=== PATIENT | female | born 1935 | race Caucasian/White ===

== ENCOUNTER 2019-03-23 09:47 | Inpatient (IN) | payer MEDICARE, BC ==
--- NOTE | 2019-03-23 10:11 | ER Document Report ---
ED Medical Screen (RME) - General Stated Complaint: GENERAL WEAKNESS Time Seen by Provider: 03/23/19 10:05 Mode of Arrival: Medic Information source: Relative Notes: 83 yo female presents to ed for weakness since she was in the assisted living facility. Patient and family states she had a major heart every in november with multiple mini stroke after this. she went to rehab and was able to walk when discharged home to son. He had an emergency and had to place her in an assisted living facility. According to family she was left laying on her back for 3 weeks and she developed a large pressure ulcer. Daughter brought her to [place] a week ago. She is not able to get up and refuses to be turned or repositioned to improve the ulcer. I have greeted and performed a rapid initial assessment of this patient. A comprehensive ED assessment and evaluation of the patient, analysis of test results and completion of medical decision making process will be conducted by an additional ED providers. - Related Data Allergies/Adverse Reactions: No Known Allergies Allergy (Unverified 03/23/19 10:47) Past Medical History - Past Medical History Cardiac Medical History: Reports: Hx Congestive Heart Failure, Hx Heart Attack, Hx Hypertension EENT Medical History: Reports: None Neurological Medical History: Reports: Hx Cerebrovascular Accident, Hx Seizures Endocrine Medical History: Reports: Hx Diabetes Mellitus Type 2 Renal/ Medical History: Reports: None Malignancy Medical History: Reports: Hx Skin Cancer GI Medical History: Reports: None Musculoskeltal Medical History: Reports Hx Arthritis Skin Medical History: Reports None Traumatic Medical History: Reports: Hx Fractures - foot Past Surgical History: Reports: Hx Cardiac Catheterization, Hx Coronary Stent Physical Exam - Vital signs Vitals: Resp Pulse Ox 10 L 98 03/23/19 10:02 03/23/19 10:02 Course - Vital Signs Vital signs: Temp Pulse Resp BP Pulse Ox 98.9 F 9 L 82/47 L 98 03/23/19 10:06 03/23/19 11:03 03/23/19 11:03 03/23/19 11:03 - Laboratory Result Diagrams: 03/23/19 10:35 03/23/19 10:35 Laboratory results interpreted by me: 03/23/19 03/23/19 03/23/19 10:03 10:35 10:35 WBC 20.9 H Hgb 8.9 L Hct 27.3 L MCV 72 L MCH 23.6 L RDW 16.4 H Plt Count 518 H Seg Neuts % (Manual) 91 H Lymphocytes % (Manual) 7 L Monocytes % (Manual) 2 L Abs Neuts (Manual) 19.0 H PT 15.8 H Sodium Chloride POC Glucose 64 L Creatine Kinase Albumin 03/23/19 10:35 WBC Hgb Hct MCV MCH RDW Plt Count Seg Neuts % (Manual) Lymphocytes % (Manual) Monocytes % (Manual) Abs Neuts (Manual) PT Sodium 130.8 L Chloride 93 L POC Glucose Creatine Kinase 160 H Albumin 3.3 L
[2019-03-23] MEDS ORDERED: MORPHINE SULFATE 10 MG/ML INJ IV ONE ×2 (10:47→13:10)
[2019-03-23 10:50] LABS: HEMATOCRIT 27.3 % (36.0-47.0); HEMOGLOBIN 8.9 g/dL (12.0-15.5); INTERNATIONAL RATION (INR) 1.25; MEAN CORPUSCULAR HEMOGLOBIN 23.6 pg (27.0-33.4); MEAN CORPUSCULAR HGB CONC 32.8 g/dL (32.0-36.0); MEAN CORPUSCULAR VOLUME 72 fl (80-97); PLATELET COUNT 518 10^3/uL (150-450); PROTHROMBIN TIME 15.8 SEC (11.4-15.4); RED BLOOD COUNT 3.78 10^6/uL (3.72-5.28); RED CELL DISTRIBUTION WIDTH 16.4 % (11.5-14.0); WHITE BLOOD COUNT 20.9 10^3/uL (4.0-10.5)
[2019-03-23 10:51] LABS: PARTIAL THROMBOPLASTIN TIME 32.8 SEC (23.5-35.8)
[2019-03-23 11:11] LABS: ALBUMIN 3.3 g/dL (3.5-5.0); ALKALINE PHOSPHATASE 84 U/L (38-126); ANION GAP 13 (5-19); ASPARTATE AMINO TRANSFERASE 27 U/L (14-36); BILIRUBIN,DIRECT 0.4 mg/dL (0.0-0.4); BILIRUBIN,TOTAL 0.7 mg/dL (0.2-1.3); BLOOD UREA NITROGEN 16 mg/dL (7-20); CALCIUM 9.2 mg/dL (8.4-10.2); CARBON DIOXIDE 25 mmol/L (22-30); CHLORIDE 93 mmol/L (98-107); CREATINE KINASE 160 U/L (30-135); GLUCOSE 82 mg/dL (75-110); POTASSIUM 4.4 mmol/L (3.6-5.0); TOTAL PROTEIN 6.6 g/dL (6.3-8.2)
[2019-03-23 11:18] LABS: ABSOLUTE LYMPHOCYTES# (MANUAL) 1.5 10^3/uL (0.5-4.7); ABSOLUTE MONOCYTES # (MANUAL) 0.4 10^3/uL (0.1-1.4); BASOPHILS % (MANUAL) 0 % (0-2); EOSINOPHILS % (MANUAL) 0 % (0-6); HYPOCHROMASIA 1+; LYMPHOCYTES % (MANUAL) 7 % (13-45); MONOCYTES % (MANUAL) 2 % (3-13); SEGMENTED NEUTROPHILS % (MAN) 91 % (42-78); TOTAL CELLS COUNTED 100
[2019-03-23 11:19] LABS: ANISOCYTOSIS 1+; BURR CELLS SLIGHT; OVALOCYTES 1+; PLATELET COMMENT ADEQUATE; POIKILOCYTOSIS 1+
[2019-03-23 11:23] LABS: CREATINE KINASE MB 0.77 ng/mL (<4.55); TROPONIN I 0.016 ng/mL
--- NOTE | 2019-03-23 11:48 | RADIOLOGY REPORT (SQ) ---
EXAM DESCRIPTION: CHEST 2 VIEWS COMPLETED DATE/TIME: 03/23/2019 11:41 am REASON FOR STUDY: short of breath COMPARISON: None. NUMBER OF VIEWS: Two view. TECHNIQUE: Frontal and lateral radiographic views of the chest acquired. LIMITATIONS: None. FINDINGS: LUNGS AND PLEURA: No opacities, masses or pneumothorax. No pleural effusion. MEDIASTINUM AND HILAR STRUCTURES: No masses. No contour abnormalities. HEART AND VASCULAR STRUCTURES: Heart enlarged without failure. Aorta normal for age. BONES: No acute findings. HARDWARE: None in the chest. OTHER: No other significant finding. IMPRESSION: CARDIAC ENLARGEMENT WITHOUT FAILURE. TECHNICAL DOCUMENTATION: JOB ID: [id number] [employer]- All Rights Reserved Reading location - IP/workstation name: [email or web address]
--- NOTE | 2019-03-23 11:49 | RADIOLOGY REPORT (SQ) ---
EXAM DESCRIPTION: HIP RIGHT AP/LATERAL COMPLETED DATE/TIME: 03/23/2019 11:41 am REASON FOR STUDY: pain COMPARISON: None. NUMBER OF VIEWS: Two views. TECHNIQUE: AP pelvis and additional frog-leg view of the right hip. LIMITATIONS: None. FINDINGS: No fracture or dislocation. 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 SI joints are normal. See separate report for findings in the lumbar spine. IMPRESSION: No fracture. TECHNICAL DOCUMENTATION: JOB ID: [id number] [employer]- All Rights Reserved Reading location - IP/workstation name: [email or web address]
--- NOTE | 2019-03-23 11:50 | RADIOLOGY REPORT (SQ) ---
EXAM DESCRIPTION: FEMUR RIGHT COMPLETED DATE/TIME: 03/23/2019 11:41 am REASON FOR STUDY: pain hip and thigh COMPARISON: None. NUMBER OF VIEWS: Two views. TECHNIQUE: Two radiographic images acquired of the right femur to include hip and knee in at least o ne projection. LIMITATIONS: None. FINDINGS: MINERALIZATION: Normal. BONES: No acute fracture. No worrisome bone lesions. SOFT TISSUES: No obvious swelling or foreign body. OTHER: No other significant finding. IMPRESSION: NO RADIOGRAPHIC EVIDENCE OF ACUTE INJURY. TECHNICAL DOCUMENTATION: JOB ID: [id number] [employer]- All Rights Reserved Reading location - IP/workstation name: [email or web address]
--- NOTE | 2019-03-23 11:51 | RADIOLOGY REPORT (SQ) ---
EXAM DESCRIPTION: L SPINE WHOLE COMPLETED DATE/TIME: 03/23/2019 11:41 am REASON FOR STUDY: pain arthritis COMPARISON: None. NUMBER OF VIEWS: Four views including obliques. TECHNIQUE: AP, lateral, oblique, and sacral radiographic images acquired of the lumbar spine. LIMITATIONS: Overlying bowel gas. FINDINGS: MINERALIZATION: Osteopenia. SEGMENTATION: Normal. No transitional anatomy. ALIGNMENT: Grade 1 spondylolisthesis L4-5. VERTEBRAE: Maintained height. No fracture or worrisome bone lesion. DISCS: Multilevel disc space narrowing with osteophytes. POSTERIOR ELEMENTS: Pedicles and facets are intact. No pars defect or posterior arch defects. Facet arthropathy is present. HARDWARE: None in the spine. PARASPINAL SOFT TISSUES: Normal. PELVIS: Intact as visualized. No fractures or worrisome bone lesions. SI joints intact. OTHER: No other significant finding. IMPRESSION: SPONDYLOSIS WITHOUT BONE LESION OR FRACTURE. TECHNICAL DOCUMENTATION: JOB ID: [id number] [email or web address]- All Rights Reserved Reading location - IP/workstation name: [email or web address]
--- NOTE | 2019-03-23 13:05 | ER Document Report ---
ED General - General Chief Complaint: General Weakness Stated Complaint: GENERAL WEAKNESS Time Seen by Provider: 03/23/19 10:05 Mode of Arrival: Medic - HPI Notes: Patient presents due to generalized body aches with acute on chronic pain in her hips and lower back. Patient is bedbound. She lives with her daughter. She was recently in assisted living facility and has developed pressure ulcers in her sacral region. She also has urinary incontinence. She denies any recent vomiting diarrhea nausea chest pain or abdominal pain. No recent cough or congestion - Related Data Allergies/Adverse Reactions: No Known Allergies Allergy (Unverified 03/23/19 10:47) Past Medical History - General Information source: Relative - Social History Smoking Status: Smoker,Current Status Unk Family History: Reviewed & Not Pertinent Patient has suicidal ideation: No Patient has homicidal ideation: No - Past Medical History Cardiac Medical History: Reports: Hx Congestive Heart Failure, Hx Heart Attack, Hx Hypertension EENT Medical History: Reports: None Neurological Medical History: Reports: Hx Cerebrovascular Accident, Hx Seizures Endocrine Medical History: Reports: Hx Diabetes Mellitus Type 2 Renal/ Medical History: Reports: None. Denies: Hx Peritoneal Dialysis Malignancy Medical History: Reports: Hx Skin Cancer GI Medical History: Reports: None Musculoskeletal Medical History: Reports Hx Arthritis Skin Medical History: Reports None Traumatic Medical History: Reports: Hx Fractures - foot Past Surgical History: Reports: Hx Cardiac Catheterization, Hx Coronary Stent Review of Systems - Review of Systems Constitutional: See HPI EENT: No symptoms reported Cardiovascular: No symptoms reported Respiratory: No symptoms reported Gastrointestinal: No symptoms reported Genitourinary: No symptoms reported Female Genitourinary: No symptoms reported Musculoskeletal: See HPI Skin: No symptoms reported Hematologic/Lymphatic: No symptoms reported Neurological/Psychological: No symptoms reported Physical Exam - Vital signs Vitals: Resp Pulse Ox 10 L 98 03/23/19 10:02 03/23/19 10:02 - General General appearance: Appears well, Alert - HEENT Head: Normocephalic Eyes: Normal - Respiratory Respiratory status: No respiratory distress Chest status: Nontender Breath sounds: Normal - Cardiovascular Rhythm: Regular Heart sounds: Normal auscultation Murmur: No - Abdominal Inspection: Other - Obese abdomen nontender to palpation, positive bowel sounds - Back Back: Other - Stage II sacral ulcerations - Extremities General upper extremity: Normal ROM General lower extremity: Other - +1 bilateral pitting edema, patient has stiff legs pain with any movement at her baseline per daughter states that she has "locked legs" Course - Re-evaluation Re-evalutation: 03/23/19 15:09 admit to MICU for turn for skin infection with leukocytosis generalized weakness. - Vital Signs Vital signs: Temp Pulse Resp BP Pulse Ox 98.4 F 59 L 16 96/32 L 83 L 03/24/19 07:41 03/24/19 08:51 03/24/19 07:41 03/24/19 08:51 03/24/19 07:41 - Laboratory Result Diagrams: 03/23/19 10:35 03/23/19 10:35 Laboratory results interpreted by me: 03/23/19 03/23/19 03/23/19 10:03 10:35 10:35 WBC 20.9 H Hgb 8.9 L Hct 27.3 L MCV 72 L MCH 23.6 L RDW 16.4 H Plt Count 518 H Seg Neuts % (Manual) 91 H Lymphocytes % (Manual) 7 L Monocytes % (Manual) 2 L Abs Neuts (Manual) 19.0 H PT 15.8 H Sodium Chloride POC Glucose 64 L Creatine Kinase Albumin Urine Protein Urine Blood 03/23/19 03/23/19 10:35 14:10 WBC Hgb Hct MCV MCH RDW Plt Count Seg Neuts % (Manual) Lymphocytes % (Manual) Monocytes % (Manual) Abs Neuts (Manual) PT Sodium 130.8 L Chloride 93 L POC Glucose Creatine Kinase 160 H Albumin 3.3 L Urine Protein 30 H Urine Blood SMALL H Discharge - Discharge Clinical Impression: Leukocytosis Qualifiers: Leukocytosis type: other Qualified Code(s): D72.828 - Other elevated white blood cell count Decubitus ulcer Qualifiers: Pressure injury location: sacral region Pressure injury stage: stage 2 Qualif ied Code(s): L89.152 - Pressure ulcer of sacral region, stage 2 Condition: Good Disposition: ADMITTED INPATIENT Admitting Provider: Reese (Hospitalist) Unit Admitted: [facility]
[2019-03-23 14:51] LABS: AMORPHOUS SEDIMENT,URINE TRACE /HPF; APPEARANCE,URINE CLEAR; BILIRUBIN,URINE NEGATIVE (NEGATIVE); COLOR,URINE YELLOW; GLUCOSE, URINE NEGATIVE (NEGATIVE); KETONES,URINE NEGATIVE (NEGATIVE); LEUKOCYTE ESTERASE,URINE NEGATIVE (NEGATIVE); NITRITE,URINE NEGATIVE (NEGATIVE); PROTEIN,URINE 30 mg/dL (NEGATIVE); UROBILINOGEN,URINE NEGATIVE mg/dL (<2.0)
[2019-03-23] MEDS ORDERED: PIPERACILLIN/TAZOBACTAM 3.375 GM VIAL IV ONE (15:08)
[2019-03-23] MEDS ORDERED: VANCOMYCIN HCL INJ 1000 MG VIAL IV ONE (15:09)
--- NOTE | 2019-03-23 15:42 | PDOC H&P ---
History of Present Illness Admission Date/PCP: 03/23/19 15:18 History of Present Illness: JESSE HURLEY is a 83 year old female patient brought by her daughter with chief complaint of back and lower extremity pain. Since patient is weak and deconditioned the brief history is obtained from her daughter who is in the room during my encounter. Per her daughter patient has been doing well and she does not have significant medical history and she does not take any medication except chronic osteoarthritis up until December 06, 2018 when she had cardiac arrest for which patient was taken to [facility] in [facility]. Patient was successfully resuscitated and she has found to have coronary artery disease which requires 3 stent placement. Reportedly her hospital course is complicated by aspiration pneumonia. After discharge patient went to rehab then to senior care facility. Reportedly is a senior care facility patient developed decubitus ulcer. On examination she has infected sacral and gluteal decubitus ulcer. Her blood work shows market leukocytosis of 20,000. Rate her imaging studies are unremarkable. Past Medical History Cardiac Medical History: Reports: Congestive Heart Failure, Myocardial Infarction, Hypertension EENT Medical History: Reports: None Neurological Medical History: Reports: Seizures Endocrine Medical History: Reports: Diabetes Mellitus Type 2 Renal/ Medical History: Reports: None Malignancy Medical History: Reports: Skin Cancer GI Medical History: Reports: None Musculoskeltal Medical History: Reports: Arthritis Skin Medical History: Reports: None Past Surgical History Past Surgical History: Reports: Cardiac Catheterization, Coronary Stent Social History Smoking Status: Smoker,Current Status Unk - Advance Directive Resuscitation Status: Full Code Family History Parental Family History Reviewed: Yes Children Family History Reviewed: Yes Sibling(s) Family History Reviewed.: Yes Medication/Allergy Allergies/Adverse Reactions: No Known Allergies Allergy (Unverified 03/23/19 10:47) Review of Systems ROS unobtainable: Due to mental status Physical Exam Vital Signs: Temp Pulse Resp BP Pulse Ox 98.9 F 17 103/34 L 93 03/23/19 10:06 03/23/19 15:01 03/23/19 15:01 03/23/19 15:01 Intake & Output 03/22/19 03/23/19 03/24/19 06:59 06:59 06:59 Weight 77.2 kg General appearance: PRESENT: no acute distress Head exam: PRESENT: atraumatic Eye exam: PRESENT: conjunctiva pink Mouth exam: PRESENT: moist, tongue midline Neck exam: ABSENT: carotid bruit, JVD, lymphadenopathy, thyromegaly Respiratory exam: PRESENT: clear to auscultation teri. ABSENT: rales, rhonchi, wheezes GI/Abdominal exam: PRESENT: normal bowel sounds, soft. ABSENT: distended, guarding, mass, organolmegaly, rebound, tenderness Neurological exam: PRESENT: alert, oriented to person, oriented to place, oriented to time, oriented to situation Results Laboratory Results: 03/23/19 10:35 03/23/19 10:35 03/23/19 03/23/19 03/23/19 10:35 10:35 13:43 WBC 20.9 H RBC 3.78 Hgb 8.9 L Hct 27.3 L MCV 72 L MCH 23.6 L MCHC 32.8 RDW 16.4 H Plt Count 518 H Seg Neutrophils % Not Reportable Sodium 130.8 L Potassium 4.4 Chloride 93 L Carbon Dioxide 25 Anion Gap 13 BUN 16 Creatinine 0.62 Est GFR ( Amer) > 60 Glucose 82 Lactic Acid 1.2 Calcium 9.2 Total Bilirubin 0.7 AST 27 Alkaline Phosphatase 84 Total Protein 6.6 Albumin 3.3 L Lipase 45.7 Urine Color Urine Appearance Urine pH Ur Specific [place] Urine Protein Urine Glucose (UA) Urine Ketones Urine Blood Urine Nitrite Ur Leukocyte Esterase Urine WBC (Auto) Urine RBC (Auto) 03/23/19 14:10 WBC RBC Hgb Hct MCV MCH MCHC RDW Plt Count Seg Neutrophils % Sodium Potassium Chloride Carbon Dioxide Anion Gap BUN Creatinine Est GFR ( Amer) Glucose Lactic Acid Calcium Total Bilirubin AST Alkaline Phosphatase Total Protein Albumin Lipase Urine Color YELLOW Urine Appearance CLEAR Urine pH 6.0 Ur Specific [place] 1.010 Urine Protein 30 H Urine Glucose (UA) NEGATIVE Urine Ketones NEGATIVE Urine Blood SMALL H Urine Nitrite NEGATIVE Ur Leukocyte Esterase NEGATIVE Urine WBC (Auto) 1 Urine RBC (Auto) 1 03/23/19 03/23/19 10:35 10:35 Creatine Kinase 160 H CK-MB (CK-2) 0.77 Troponin I 0.016 Impressions: Femur X-Ray 03/23/19 10:12 IMPRESSION: NO RADIOGRAPHIC EVIDENCE OF ACUTE INJURY. Hip/Pelvis X-Ray 03/23/19 10:12 IMPRESSION: No fracture. Chest X-Ray 03/23/19 10:13 IMPRESSION: CARDIAC ENLARGEMENT WITHOUT FAILURE. Lumbar Spine X-Ray 03/23/19 10:13 IMPRESSION: SPONDYLOSIS WITHOUT BONE LESION OR FRACTURE. Assessment and Plan - Diagnosis (1) Infected decubitus ulcer Qualifiers: Pressure injury stage: stage 2 Qualified Code(s): L89.92 - Pressure ulcer of unspecified site, stage 2; L08.9 - Local infection of the skin and subcutaneous tissue, unspecified Is this a current diagnosis for this admission?: Yes Plan: Patient will be started on Unasyn. Wound care consulted. (2) Coronary artery disease Qualifiers: Coronary Disease-Associated Artery/Lesion type: [place] artery Is this a current diagnosis for this admission?: Yes Plan: Status post 3 stent placement in November 2018. Currently patient does not have any anginal symptoms. (3) Seizure disorder Is this a current diagnosis for this admission?: Yes Plan: In remission
[2019-03-23] MEDS ORDERED: GLUCAGON,HUMAN RECOMB 1 MG INJ IM PRN (15:45)
[2019-03-23] MEDS ORDERED: DEXTROSE 50%-WATER 25 GM/50 ML DISP.SYRIN IV PRN (15:45)
[2019-03-23] MEDS ORDERED: DEXTROSE 40% GEL 15 GM TUBE PO PRN ×2 (15:45)
[2019-03-23] MEDS ORDERED: FENTANYL 25 MCG/HR PATCH.TD72 TD ONE (15:46)
[2019-03-23] MEDS: INSULIN LISPRO 100 UNIT/ML 3 ML VIAL SUBCUT SCH ×2 (16:47→21:29)
[2019-03-23] MEDS ORDERED: VANCOMYCIN HCL INJ 1000 MG VIAL ONE (17:31)
[2019-03-23] MEDS ORDERED: AMPICILLIN SODIUM/SULBACTAM NA 3 GM in NORMAL SALINE 100 ML IV SCH (18:00)
[2019-03-23] MEDS ORDERED: AMPICILLIN SODIUM/SULBACTAM NA 2 GM in NORMAL SALINE 100 ML IV SCH (18:00)
[2019-03-23] MEDS: FAMOTIDINE 20 MG TABLET PO SCH (21:19)
[2019-03-23] MEDS: DOCUSATE SODIUM 100 MG CAPSULE PO SCH (21:19)
[2019-03-23] MEDS: ENOXAPARIN SODIUM INJ 40 MG/0.4 ML DISP.SYRIN SUBCUT SCH (21:19)
[2019-03-24] MEDS: ACETAMINOPHEN 325 MG TABLET PO PRN (02:01)
[2019-03-24] MEDS: AMPICILLIN SODIUM/SULBACTAM NA 3 GM in NORMAL SALINE 100 ML IV SCH ×4 (02:09→21:04)
[2019-03-24] MEDS: OXYCODONE HCL IR 5 MG TABLET PO PRN ×2 (04:48→16:27)
[2019-03-24] MEDS: INSULIN LISPRO 100 UNIT/ML 3 ML VIAL SUBCUT SCH ×4 (07:51→21:05)
[2019-03-24] MEDS: DOCUSATE SODIUM 100 MG CAPSULE PO SCH ×2 (10:11→18:09)
[2019-03-24] MEDS: FAMOTIDINE 20 MG TABLET PO SCH ×2 (10:11→21:04)
[2019-03-24] MEDS: ENOXAPARIN SODIUM INJ 40 MG/0.4 ML DISP.SYRIN SUBCUT SCH (10:12)
[2019-03-24] MEDS ORDERED: FENTANYL 25 MCG/HR PATCH.TD72 TD SCH (11:00)
--- NOTE | 2019-03-24 16:22 | PDOC PROGRESS REPORT ---
Subjective Progress Note for:: 03/24/19 Subjective:: JESSE HURLEY is a 83 year old female patient brought by her daughter with chief complaint of back and lower extremity pain. Since patient is weak and deconditioned the brief history is obtained from her daughter who is in the room during my encounter. Per her daughter patient has been doing well and she does not have significant medical history and she does not take any medication except chronic osteoarthritis up until December 06, 2018 when she had cardiac arrest for which patient was taken to [facility] in [facility]. Patient was successfully resuscitated and she has found to have coronary artery disease which requires 3 stent placement. Reportedly her hospital course is complicated by aspiration pneumonia. After discharge patient went to [facility]hab [facility] Reportedly is a jail facility patient developed decubitus ulcer. On examination she has infected sacral and gluteal decubitus ulcer. Her blood work shows market leukocytosis of 20,000. Rate her imaging studies are unremarkable. 03/24/2019: Patient seen lying in bed. Patient complains of back pain and cramping his legs. She does not have fever, nausea or vomiting. She eats well. She has been on Unasyn for infected sacral decubitus ulcer. Reason For Visit: INFECTED SACRAL DECUBITUS ULCER Physical Exam Vital Signs: Temp Pulse Resp BP Pulse Ox 98.4 F 63 18 97/32 L 100 03/24/19 11:26 03/24/19 11:26 03/24/19 11:26 03/24/19 11:26 03/24/19 11:26 Intake & Output 03/23/19 03/24/19 03/25/19 06:59 06:59 06:59 Intake Total 885 340 Output Total 375 Balance 510 340 Weight 75.9 kg General appearance: PRESENT: no acute distress Head exam: PRESENT: atraumatic Eye exam: PRESENT: conjunctiva pink Neck exam: ABSENT: carotid bruit, JVD, lymphadenopathy, thyromegaly Respiratory exam: PRESENT: clear to auscultation teri. ABSENT: rales, rhonchi, wheezes Cardiovascular exam: PRESENT: RRR. ABSENT: diastolic murmur, rubs, systolic murmur GI/Abdominal exam: PRESENT: normal bowel sounds, soft. ABSENT: distended, guarding, mass, organolmegaly, rebound, tenderness Neurological exam: PRESENT: alert, awake, oriented to person, oriented to place, oriented to time, oriented to situation Results Laboratory Results: 03/23/19 10:35 03/23/19 10:35 03/23/19 03/23/19 10:35 10:35 Creatine Kinase 160 H CK-MB (CK-2) 0.77 Troponin I 0.016 Impressions: Femur X-Ray 03/23/19 10:12 IMPRESSION: NO RADIOGRAPHIC EVIDENCE OF ACUTE INJURY. Hip/Pelvis X-Ray 03/23/19 10:12 IMPRESSION: No fracture. Chest X-Ray 03/23/19 10:13 IMPRESSION: CARDIAC ENLARGEMENT WITHOUT FAILURE. Lumbar Spine X-Ray 03/23/19 10:13 IMPRESSION: SPONDYLOSIS WITHOUT BONE LESION OR FRACTURE. Assessment and Plan - Diagnosis (1) Infected decubitus ulcer Qualifiers: Pressure injury stage: stage 2 Qualified Code(s): L89.92 - Pressure ulcer of unspecified site, stage 2; L08.9 - Local infection of the skin and subcutaneous tissue, unspecified Is this a current diagnosis for this admission?: Yes Plan: Patient will be started on Unasyn. Wound care consulted. (2) Coronary artery disease Qualifiers: Coronary Disease-Associated Artery/Lesion type: [place] artery Is this a current diagnosis for this admission?: Yes Plan: Status post 3 stent placement in November 2018. Currently patient does not have any anginal symptoms. (3) Seizure disorder Is this a current diagnosis for this admission?: Yes Plan: In remission
[2019-03-24] MEDS: MEGESTROL ACETATE SUSP 400 MG/10 ML UDCUP PO SCH (18:09)
[2019-03-24] MEDS ORDERED: NORMAL SALINE 1000 ML 1,000 ML IV ONE (21:00)
[2019-03-25] MEDS: AMPICILLIN SODIUM/SULBACTAM NA 3 GM in NORMAL SALINE 100 ML IV SCH ×4 (02:50→21:09)
[2019-03-25 04:55] LABS: ABSOLUTE EOSINOPHILS # (AUTO) 0.1 10^3/uL (0.0-0.6); ABSOLUTE MONOCYTES (AUTO) 1.3 10^3/uL (0.1-1.4); ABSOLUTE NEUT (AUTO) 10.4 10^3/uL (1.7-8.2); BASOPHILS % (AUTO) 0.2 % (0-2); EOSINOPHILS % (AUTO) 0.6 % (0-6); HEMATOCRIT 21.8 % (36.0-47.0); LYMPHOCYTES % (AUTO) 14.5 % (13-45); MEAN CORPUSCULAR HEMOGLOBIN 23.3 pg (27.0-33.4); MEAN CORPUSCULAR HGB CONC 32.7 g/dL (32.0-36.0); MEAN CORPUSCULAR VOLUME 72 fl (80-97); MONOCYTES % (AUTO) 9.3 % (3-13); PLATELET COUNT 425 10^3/uL (150-450); RED BLOOD COUNT 3.05 10^6/uL (3.72-5.28); SEGMENTED NEUTROPHILS % (AUTO) 75.4 % (42-78); TOTAL CELLS COUNTED % (AUTO) 100 %; WHITE BLOOD COUNT 13.7 10^3/uL (4.0-10.5)
[2019-03-25 04:57] LABS: HEMOGLOBIN 7.1 g/dL (12.0-15.5)
[2019-03-25 05:12] LABS: ANION GAP 8 (5-19); BLOOD UREA NITROGEN 13 mg/dL (7-20); CALCIUM 8.2 mg/dL (8.4-10.2); CARBON DIOXIDE 24 mmol/L (22-30); CHLORIDE 100 mmol/L (98-107); GLUCOSE 122 mg/dL (75-110); POTASSIUM 3.8 mmol/L (3.6-5.0)
[2019-03-25] MEDS: SILVER SULFADIAZINE 1% CREAM 50 GM TP SCH ×2 (06:22→09:38)
--- NOTE | 2019-03-25 06:57 | EKG REPORT ---
SEVERITY:- ABNORMAL ECG - SINUS RHYTHM LEFT BUNDLE BRANCH BLOCK : Confirmed by: Talib Cochran MD 25-Mar-2019 06:57:29
[2019-03-25 07:46] LABS: CREATINE KINASE MB 0.65 ng/mL (<4.55); TROPONIN I 0.029 ng/mL
[2019-03-25] MEDS: INSULIN LISPRO 100 UNIT/ML 3 ML VIAL SUBCUT SCH ×4 (08:29→23:46)
[2019-03-25] MEDS: OXYCODONE HCL IR 5 MG TABLET PO PRN (08:32)
[2019-03-25] MEDS: NORMAL SALINE 1000 ML 1,000 ML IV PRN (08:32)
[2019-03-25] MEDS: CYANOCOBALAMIN (VITAMIN B-12) 1,000 MCG TABLET PO SCH (09:37)
[2019-03-25] MEDS: AMIODARONE HCL 200 MG TABLET PO SCH (09:37)
[2019-03-25] MEDS: DOCUSATE SODIUM 100 MG CAPSULE PO SCH ×2 (09:38→17:12)
[2019-03-25] MEDS: SITAGLIPTIN PHOSPHATE 50 MG TABLET PO SCH (09:38)
[2019-03-25] MEDS: CLOPIDOGREL BISULFATE 75 MG TABLET PO SCH (09:38)
[2019-03-25] MEDS: ASPIRIN 81 MG TABLET, ENT COATED PO SCH (09:38)
[2019-03-25] MEDS: FAMOTIDINE 20 MG TABLET PO SCH ×2 (09:38→21:09)
[2019-03-25] MEDS: CHOLECALCIFEROL (D3) 1,000 UNIT (25 MCG) TABLET PO SCH (09:38)
[2019-03-25] MEDS: MEGESTROL ACETATE SUSP 400 MG/10 ML UDCUP PO SCH (09:39)
[2019-03-25] MEDS: ENOXAPARIN SODIUM INJ 40 MG/0.4 ML DISP.SYRIN SUBCUT SCH (09:39)
[2019-03-25] MEDS ORDERED: CYANOCOBALAMIN 5000 MCG PO SCH (10:00)
[2019-03-25] MEDS ORDERED: CARVEDILOL 12.5 MG TABLET PO SCH (10:00)
[2019-03-25] MEDS ORDERED: (PENDING PHARMACY ID) (Carvedilol [Coreg 25 Mg Tablet] 1 TAB) PO SCH (10:00)
--- NOTE | 2019-03-25 15:09 | PDOC PROGRESS REPORT ---
Subjective Progress Note for:: 03/25/19 Subjective:: JESSE HURLEY is a 83 year old female patient brought by her daughter with chief complaint of back and lower extremity pain. Since patient is weak and deconditioned the brief history is obtained from her daughter who is in the room during my encounter. Per her daughter patient has been doing well and she does not have significant medical history and she does not take any medication except chronic osteoarthritis up until December 06, 2018 when she had cardiac arrest for which patient was taken to [facility] in [facility]. Patient was successfully resuscitated and she has found to have coronary artery disease which requires 3 stent placement. Reportedly her hospital course is complicated by aspiration pneumonia. After discharge patient went to rehab then to [facility]. Reportedly is a prison facility patient developed decubitus ulcer. On examination she has infected sacral and gluteal decubitus ulcer. Her blood work shows market leukocytosis of 20,000. Rate her imaging studies are unremarkable. 03/24/2019: Patient seen lying in bed. Patient complains of back pain and cramping his legs. She does not have fever, nausea or vomiting. She eats well. She has been on Unasyn for infected sacral decubitus ulcer. 03/25/2019: Patient seen screaming from pain while the nurse and patient recycling technician try to change her position. Patient also running hypotension so I discontinued her carvedilol. Otherwise patient is awake alert and oriented. She does not have any fever nausea or vomiting. Physical therapy has been working with her. Reason For Visit: INFECTED SACRAL DECUBITUS ULCER Physical Exam Vital Signs: Temp Pulse Resp BP Pulse Ox 98.2 F 77 15 104/40 L 96 03/25/19 11:30 03/25/19 11:30 03/25/19 11:30 03/25/19 11:30 03/25/19 11:30 Intake & Output 03/24/19 03/25/19 03/26/19 06:59 06:59 06:59 Intake Total 885 970 470 Output Total 375 1450 Balance 510 -480 470 Weight 75.9 kg 75.4 kg General appearance: PRESENT: mild distress, well-developed, well-nourished Head exam: PRESENT: atraumatic, normocephalic Eye exam: PRESENT: conjunctiva pink, EOMI, PERRLA. ABSENT: scleral icterus Ear exam: PRESENT: normal external ear exam Mouth exam: PRESENT: moist, tongue midline Neck exam: ABSENT: carotid bruit, JVD, lymphadenopathy, thyromegaly Respiratory exam: ABSENT: rales, rhonchi, wheezes Cardiovascular exam: PRESENT: RRR. ABSENT: diastolic murmur, rubs, systolic murmur Pulses: PRESENT: normal dorsalis pedis pul Vascular exam: PRESENT: normal capillary refill GI/Abdominal exam: PRESENT: normal bowel sounds, soft. ABSENT: distended, guarding, mass, organolmegaly, rebound, tenderness Rectal exam: PRESENT: deferred Extremities exam: PRESENT: full ROM. ABSENT: calf tenderness, clubbing, pedal edema Neurological exam: PRESENT: alert, awake, oriented to person, oriented to place, oriented to time, oriented to situation. ABSENT: motor sensory deficit Psychiatric exam: PRESENT: appropriate affect, normal mood. ABSENT: homicidal ideation, suicidal ideation Skin exam: PRESENT: dry, intact, warm. ABSENT: cyanosis, rash Results Laboratory Results: 03/25/19 04:07 03/25/19 04:07 03/25/19 03/25/19 03/25/19 04:07 04:07 06:43 WBC 13.7 H RBC 3.05 L Hgb 7.1 L Hct 21.8 L MCV 72 L MCH 23.3 L MCHC 32.7 RDW 16.0 H Plt Count 425 Seg Neutrophils % 75.4 Sodium 131.8 L Potassium 3.8 Chloride 100 Carbon Dioxide 24 Anion Gap 8 BUN 13 Creatinine 0.72 Est GFR ( Amer) > 60 Glucose 122 H Calcium 8.2 L Blood Type O POSITIVE Antibody Screen NEGATIVE 03/23/19 14:10 Buttocks - Decubitis Ulcer Gram Stain - Final 03/23/19 03/23/19 03/25/19 10:35 10:35 06:43 Creatine Kinase 160 H 177 H CK-MB (CK-2) 0.77 Troponin I 0.016 03/25/19 06:43 Creatine Kinase CK-MB (CK-2) 0.65 Troponin I 0.029 Impressions: Femur X-Ray 03/23/19 10:12 IMPRESSION: NO RADIOGRAPHIC EVIDENCE OF ACUTE INJURY. Hip/Pelvis X-Ray 03/23/19 10:12 IMPRESSION: No fracture. Chest X-Ray 03/23/19 10:13 IMPRESSION: CARDIAC ENLARGEMENT WITHOUT FAILURE. Lumbar Spine X-Ray 03/23/19 10:13 IMPRESSION: SPONDYLOSIS WITHOUT BONE LESION OR FRACTURE. Assessment and Plan - Diagnosis (1) Infected decubitus ulcer Qualifiers: Pressure injury stage: stage 2 Qualified Code(s): L89.92 - Pressure ulcer of unspecified site, stage 2; L08.9 - Local infection of the skin and subcutaneous tissue, unspecified Is this a current diagnosis for this admission?: Yes Plan: Continue with wound care (2) Coronary artery disease Qualifiers: Coronary Disease-Associated Artery/Lesion type: [place] artery Is this a current diagnosis for this admission?: Yes Plan: Status post 3 stent placement in November 2018. Currently patient does not have any anginal symptoms. (3) Seizure disorder Is this a current diagnosis for this admission?: Yes Plan: In remission (4) Type 2 diabetes mellitus Is this a current diagnosis for this admission?: Yes Plan: Her metformin and sliding scale has been resumed.
[2019-03-25] MEDS ORDERED: FENTANYL 50 MCG/HR PATCH.TD72 TD SCH (16:00)
[2019-03-25] MEDS: METFORMIN HCL 500 MG TABLET PO SCH (16:03)
[2019-03-25 16:40] LABS: ABSOLUTE EOSINOPHILS # (AUTO) 0.3 10^3/uL (0.0-0.6); ABSOLUTE LYMPHOCYTES (AUTO) 2.6 10^3/uL (0.5-4.7); ABSOLUTE NEUT (AUTO) 11.6 10^3/uL (1.7-8.2); BASOPHILS % (AUTO) 0.3 % (0-2); EOSINOPHILS % (AUTO) 1.7 % (0-6); HEMATOCRIT 25.2 % (36.0-47.0); HEMOGLOBIN 8.5 g/dL (12.0-15.5); LYMPHOCYTES % (AUTO) 16.5 % (13-45); MEAN CORPUSCULAR HGB CONC 33.6 g/dL (32.0-36.0); MONOCYTES % (AUTO) 6.8 % (3-13); PLATELET COUNT 420 10^3/uL (150-450); RED BLOOD COUNT 3.02 10^6/uL (3.72-5.28); RED CELL DISTRIBUTION WIDTH 14.2 % (11.5-14.0); SEGMENTED NEUTROPHILS % (AUTO) 74.7 % (42-78); TOTAL CELLS COUNTED % (AUTO) 100 %; WHITE BLOOD COUNT 15.5 10^3/uL (4.0-10.5)
[2019-03-25 16:42] LABS: MEAN CORPUSCULAR VOLUME 83 fl (80-97)
[2019-03-25] MEDS: FENTANYL 50 MCG/HR PATCH.TD72 TD SCH (17:12)
[2019-03-25] MEDS: ATORVASTATIN CALCIUM 80 MG TABLET PO SCH (21:08)
[2019-03-26] MEDS: NORMAL SALINE 1000 ML 1,000 ML IV PRN ×2 (02:09→14:37)
[2019-03-26] MEDS: AMPICILLIN SODIUM/SULBACTAM NA 3 GM in NORMAL SALINE 100 ML IV SCH ×2 (03:37→08:46)
[2019-03-26] MEDS: SILVER SULFADIAZINE 1% CREAM 50 GM TP SCH ×3 (03:37→21:10)
[2019-03-26] MEDS: INSULIN LISPRO 100 UNIT/ML 3 ML VIAL SUBCUT SCH ×4 (08:41→21:51)
[2019-03-26] MEDS: METFORMIN HCL 500 MG TABLET PO SCH ×2 (09:02→16:53)
[2019-03-26] MEDS: SITAGLIPTIN PHOSPHATE 50 MG TABLET PO SCH (09:03)
[2019-03-26] MEDS: CHOLECALCIFEROL (D3) 1,000 UNIT (25 MCG) TABLET PO SCH (09:03)
[2019-03-26] MEDS: CLOPIDOGREL BISULFATE 75 MG TABLET PO SCH (09:03)
[2019-03-26] MEDS: ASPIRIN 81 MG TABLET, ENT COATED PO SCH (09:03)
[2019-03-26] MEDS: DOCUSATE SODIUM 100 MG CAPSULE PO SCH ×2 (09:03→17:46)
[2019-03-26] MEDS: CYANOCOBALAMIN (VITAMIN B-12) 1,000 MCG TABLET PO SCH (09:03)
[2019-03-26] MEDS: MEGESTROL ACETATE SUSP 400 MG/10 ML UDCUP PO SCH (09:03)
[2019-03-26] MEDS: AMIODARONE HCL 200 MG TABLET PO SCH (09:03)
[2019-03-26] MEDS: FAMOTIDINE 20 MG TABLET PO SCH ×2 (09:03→21:08)
[2019-03-26] MEDS: ENOXAPARIN SODIUM INJ 40 MG/0.4 ML DISP.SYRIN SUBCUT SCH (09:03)
[2019-03-26] MEDS: OXYCODONE HCL IR 5 MG TABLET PO PRN ×2 (09:09→14:36)
[2019-03-26] MEDS: PIPERACILLIN SODIUM/TAZOBACTAM 4.5 GM in NORMAL SALINE 100 ML IV SCH ×3 (09:49→17:46)
[2019-03-26] MEDS ORDERED: FENTANYL 25 MCG/HR PATCH.TD72 TD SCH (10:00)
--- NOTE | 2019-03-26 13:23 | PDOC PROGRESS REPORT ---
Subjective Progress Note for:: 03/26/19 Subjective:: JESSE HURLEY is a 83 year old female patient brought by her daughter with chief complaint of back and lower extremity pain. Since patient is weak and deconditioned the brief history is obtained from her daughter who is in the room during my encounter. Per her daughter patient has been doing well and she does not have significant medical history and she does not take any medication except chronic osteoarthritis up until December 06, 2018 when she had cardiac arrest for which patient was taken to [facility] in [facility]. Patient was successfully resuscitated and she has found to have coronary artery disease which requires 3 stent placement. Reportedly her hospital course is complicated by aspiration pneumonia. After discharge patient went to rehab then to care home facility. Reportedly is a care home facility patient developed decubitus ulcer. On examination she has infected sacral and gluteal decubitus ulcer. Her blood work shows market leukocytosis of 20,000. Rate her imaging studies are unremarkable. 03/24/2019: Patient seen lying in bed. Patient complains of back pain and cramping his legs. She does not have fever, nausea or vomiting. She eats well. She has been on Unasyn for infected sacral decubitus ulcer. 03/25/2019: Patient seen screaming from pain while the nurse and patient plastic eye technician try to change her position. Patient also running hypotension so I discontinued her carvedilol. Otherwise patient is awake alert and oriented. She does not have any fever nausea or vomiting. Physical therapy has been working with her. 03/26/2019: Patient reports this her back and lower extremity pain relatively improved after she was put on fentanyl patch. Her vital sign and blood works are reviewed. Clinically patient is stable but patient has hypotension and she is bolused with thousand mL of normal saline. Her wound culture grew Enterococcus faecalis, Serratia marcescens, Pseudomonas aeruginosa. And her blood culture is positive for Pseudomonas aeruginosa. Her Unasyn is switched to Zosyn. Her white cell count at admission was 22 date is 15.5. Reason For Visit: INFECTED SACRAL DECUBITUS ULCER Physical Exam Vital Signs: Temp Pulse Resp BP Pulse Ox 98.4 F 61 16 73/35 L 91 L 03/26/19 11:50 03/26/19 11:50 03/26/19 11:50 03/26/19 11:50 03/26/19 11:50 Intake & Output 03/25/19 03/26/19 03/27/19 06:59 06:59 06:59 Intake Total 1970 2770 200 Output Total 1450 1100 Balance 520 1670 200 Weight 75.4 kg 76.8 kg General appearance: PRESENT: no acute distress Head exam: PRESENT: atraumatic Mouth exam: PRESENT: dry mucosa Neck exam: ABSENT: carotid bruit, JVD, lymphadenopathy, thyromegaly Respiratory exam: PRESENT: clear to auscultation teri. ABSENT: rales, rhonchi, wheezes Cardiovascular exam: PRESENT: RRR. ABSENT: diastolic murmur, rubs, systolic murmur GI/Abdominal exam: PRESENT: normal bowel sounds, soft. ABSENT: distended, guarding, mass, organolmegaly, rebound, tenderness Neurological exam: PRESENT: alert, awake, oriented to person, oriented to place, oriented to time, oriented to situation Results Laboratory Results: 03/25/19 16:20 03/25/19 04:07 03/25/19 16:20 WBC 15.5 H RBC 3.02 L Hgb 8.5 L Hct 25.2 L MCV 83 D MCH 28.0 MCHC 33.6 RDW 14.2 H Plt Count 420 Seg Neutrophils % 74.7 03/23/19 14:10 Buttocks - Decubitis Ulcer Gram Stain - Final 03/23/19 14:10 Buttocks - Decubitis Ulcer Wound Culture - Final Enterococcus Faecalis(Group D) Serratia Marcescens Pseudomonas Aeruginosa 03/23/19 14:20 Blood Blood Culture - Final Pseudomonas Aeruginosa 03/23/19 13:25 Blood Blood Culture - Final Pseudomonas Aeruginosa 03/23/19 03/23/19 03/25/19 10:35 10:35 06:43 Creatine Kinase 160 H 177 H CK-MB (CK-2) 0.77 Troponin I 0.016 03/25/19 06:43 Creatine Kinase CK-MB (CK-2) 0.65 Troponin I 0.029 Impressions: Femur X-Ray 03/23/19 10:12 IMPRESSION: NO RADIOGRAPHIC EVIDENCE OF ACUTE INJURY. Hip/Pelvis X-Ray 03/23/19 10:12 IMPRESSION: No fracture. Chest X-Ray 03/23/19 10:13 IMPRESSION: CARDIAC ENLARGEMENT WITHOUT FAILURE. Lumbar Spine X-Ray 03/23/19 10:13 IMPRESSION: SPONDYLOSIS WITHOUT BONE LESION OR FRACTURE. Assessment and Plan - Diagnosis (1) Gram-negative bacteremia Is this a current diagnosis for this admission?: Yes Plan: Her blood culture grew Pseudomonas aeruginosa. Final report is pending. I switch her Unasyn to Zosyn. (2) Infected decubitus ulcer Qualifiers: Pressure injury stage: stage 2 Qualified Code(s): L89.92 - Pressure ulcer of unspecified site, stage 2; L08.9 - Local infection of the skin and subcutaneous tissue, unspecified Is this a current diagnosis for this admission?: Yes Plan: Her wound culture is positive for triple organisms namely Serratia marcescens, Enterococcus faecalis and Pseudomonas aeruginosa. Antibiotics switched to Zosyn from Unasyn. (3) Coronary artery disease Qualifiers: Coronary Disease-Associated Artery/Lesion type: [place] artery Is this a current diagnosis for this admission?: Yes Plan: Status post 3 stent placement in November 2018. Currently patient does not have any anginal symptoms. (4) Seizure disorder Is this a current diagnosis for this admission?: Yes Plan: In remission (5) Type 2 diabetes mellitus Is this a current diagnosis for this admission?: Yes
[2019-03-26] MEDS: ACETAMINOPHEN 325 MG TABLET PO PRN (17:40)
[2019-03-26] MEDS ORDERED: NORMAL SALINE 1000 ML 1,000 ML IV ONE (18:15)
[2019-03-26] MEDS: ATORVASTATIN CALCIUM 80 MG TABLET PO SCH (21:08)
[2019-03-27] MEDS: PIPERACILLIN SODIUM/TAZOBACTAM 4.5 GM in NORMAL SALINE 100 ML IV SCH ×4 (00:20→17:46)
[2019-03-27] MEDS: TEMAZEPAM 15 MG CAPSULE PO PRN (00:48)
[2019-03-27] MEDS: ACETAMINOPHEN 325 MG TABLET PO PRN ×3 (00:48→22:03)
[2019-03-27 06:41] LABS: ABSOLUTE EOSINOPHILS # (AUTO) 0.1 10^3/uL (0.0-0.6); ABSOLUTE LYMPHOCYTES (AUTO) 1.8 10^3/uL (0.5-4.7); ABSOLUTE NEUT (AUTO) 7.9 10^3/uL (1.7-8.2); BASOPHILS % (AUTO) 0.3 % (0-2); EOSINOPHILS % (AUTO) 1.3 % (0-6); HEMATOCRIT 26.3 % (36.0-47.0); HEMOGLOBIN 8.6 g/dL (12.0-15.5); LYMPHOCYTES % (AUTO) 16.3 % (13-45); MEAN CORPUSCULAR HEMOGLOBIN 24.2 pg (27.0-33.4); MEAN CORPUSCULAR HGB CONC 32.6 g/dL (32.0-36.0); MONOCYTES % (AUTO) 9.2 % (3-13); PLATELET COUNT 444 10^3/uL (150-450); RED BLOOD COUNT 3.54 10^6/uL (3.72-5.28); RED CELL DISTRIBUTION WIDTH 16.9 % (11.5-14.0); SEGMENTED NEUTROPHILS % (AUTO) 72.9 % (42-78); TOTAL CELLS COUNTED % (AUTO) 100 %; WHITE BLOOD COUNT 10.9 10^3/uL (4.0-10.5)
[2019-03-27 07:01] LABS: MEAN CORPUSCULAR VOLUME 74 fl (80-97)
[2019-03-27] MEDS: INSULIN LISPRO 100 UNIT/ML 3 ML VIAL SUBCUT SCH ×4 (09:04→21:56)
[2019-03-27] MEDS: METFORMIN HCL 500 MG TABLET PO SCH ×2 (09:08→16:01)
[2019-03-27] MEDS: AMIODARONE HCL 200 MG TABLET PO SCH (09:08)
[2019-03-27] MEDS: ASPIRIN 81 MG TABLET, ENT COATED PO SCH (09:08)
[2019-03-27] MEDS: DOCUSATE SODIUM 100 MG CAPSULE PO SCH ×3 (09:08→17:46)
[2019-03-27] MEDS: FAMOTIDINE 20 MG TABLET PO SCH ×2 (09:08→21:59)
[2019-03-27] MEDS: CYANOCOBALAMIN (VITAMIN B-12) 1,000 MCG TABLET PO SCH (09:09)
[2019-03-27] MEDS: ENOXAPARIN SODIUM INJ 40 MG/0.4 ML DISP.SYRIN SUBCUT SCH (09:09)
[2019-03-27] MEDS: CLOPIDOGREL BISULFATE 75 MG TABLET PO SCH (09:09)
[2019-03-27] MEDS: MEGESTROL ACETATE SUSP 400 MG/10 ML UDCUP PO SCH (09:09)
[2019-03-27] MEDS: SITAGLIPTIN PHOSPHATE 50 MG TABLET PO SCH (09:09)
[2019-03-27] MEDS: CHOLECALCIFEROL (D3) 1,000 UNIT (25 MCG) TABLET PO SCH (09:09)
[2019-03-27] MEDS: SILVER SULFADIAZINE 1% CREAM 50 GM TP SCH ×2 (09:10→21:59)
[2019-03-27] MEDS ORDERED: MULTIVITAMIN (INFANT) DROPS 50 ML PO ONE (10:21)
[2019-03-27] MEDS: DEXTROSE 50%-WATER 25 GM/50 ML DISP.SYRIN IV PRN ×3 (11:54→21:59)
[2019-03-27] MEDS: MULTIVITAMIN ORAL LIQUID 60 ML PO SCH (11:58)
--- NOTE | 2019-03-27 13:39 | PDOC PROGRESS REPORT ---
Subjective Progress Note for:: 03/27/19 Subjective:: JESSE HURLEY is a 83 year old female patient brought by her daughter with chief complaint of back and lower extremity pain. Since patient is weak and deconditioned the brief history is obtained from her daughter who is in the room during my encounter. Per her daughter patient has been doing well and she does not have significant medical history and she does not take any medication except chronic osteoarthritis up until December 06, 2018 when she had cardiac arrest for which patient was taken to [facility] in [facility]. Patient was successfully resuscitated and she has found to have coronary artery disease which requires 3 stent placement. Reportedly her hospital course is complicated by aspiration pneumonia. After discharge patient went to rehab then to [facility] facility. Reportedly is a [facility] facility patient developed decubitus ulcer. On examination she has infected sacral and gluteal decubitus ulcer. Her blood work shows market leukocytosis of 20,000. Rate her imaging studies are unremarkable. 03/24/2019: Patient seen lying in bed. Patient complains of back pain and cramping his legs. She does not have fever, nausea or vomiting. She eats well. She has been on Unasyn for infected sacral decubitus ulcer. 03/25/2019: Patient seen screaming from pain while the nurse and patient technician anatomic pathology try to change her position. Patient also running hypotension so I discontinued her carvedilol. Otherwise patient is awake alert and oriented. She does not have any fever nausea or vomiting. Physical therapy has been working with her. 03/26/2019: Patient reports this her back and lower extremity pain relatively improved after she was put on fentanyl patch. Her vital sign and blood works are reviewed. Clinically patient is stable but patient has hypotension and she is bolused with thousand mL of normal saline. Her wound culture grew Enterococcus faecalis, Serratia marcescens, Pseudomonas aeruginosa. And her blood culture is positive for Pseudomonas aeruginosa. Her Unasyn is switched to Zosyn. Her white cell count at admission was 22 date is 15.5. 03/27/2019: Patient seen resting in bed and chatting with her granddaughter. She reports her pain is relatively controlled. We will continue the current management. Reason For Visit: INFECTED SACRAL DECUBITUS ULCER Physical Exam Vital Signs: Temp Pulse Resp BP Pulse Ox 98.4 F 61 16 103/38 L 95 03/27/19 11:28 03/27/19 11:28 03/27/19 11:28 03/27/19 11:28 03/27/19 11:28 Intake & Output 03/26/19 03/27/19 03/28/19 06:59 06:59 06:59 Intake Total 2770 3790 200 Output Total 1100 450 Balance 1670 3340 200 Weight 76.8 kg 81.5 kg General appearance: PRESENT: no acute distress Head exam: PRESENT: atraumatic Neck exam: ABSENT: carotid bruit, JVD, lymphadenopathy, thyromegaly Respiratory exam: PRESENT: clear to auscultation teri. ABSENT: rales, rhonchi, wheezes Cardiovascular exam: PRESENT: RRR. ABSENT: diastolic murmur, rubs, systolic murmur Neurological exam: PRESENT: alert, awake, oriented to person, oriented to place, oriented to time, oriented to situation Results Laboratory Results: 03/27/19 05:53 03/25/19 04:07 03/27/19 05:53 WBC 10.9 H RBC 3.54 L Hgb 8.6 L Hct 26.3 L MCV 74 L D MCH 24.2 L MCHC 32.6 RDW 16.9 H Plt Count 444 Seg Neutrophils % 72.9 03/23/19 03/23/19 03/25/19 10:35 10:35 06:43 Creatine Kinase 160 H 177 H CK-MB (CK-2) 0.77 Troponin I 0.016 03/25/19 06:43 Creatine Kinase CK-MB (CK-2) 0.65 Troponin I 0.029 Impressions: Femur X-Ray 03/23/19 10:12 IMPRESSION: NO RADIOGRAPHIC EVIDENCE OF ACUTE INJURY. Hip/Pelvis X-Ray 03/23/19 10:12 IMPRESSION: No fracture. Chest X-Ray 03/23/19 10:13 IMPRESSION: CARDIAC ENLARGEMENT WITHOUT FAILURE. Lumbar Spine X-Ray 03/23/19 10:13 IMPRESSION: SPONDYLOSIS WITHOUT BONE LESION OR FRACTURE. Assessment and Plan - Diagnosis (1) Gram-negative bacteremia Is this a current diagnosis for this admission?: Yes Plan: Repeat blood cultures pending (2) Infected decubitus ulcer Qualifiers: Pressure injury stage: stage 2 Qualified Code(s): L89.92 - Pressure ulcer of unspecified site, stage 2; L08.9 - Local infection of the skin and subcutaneous tissue, unspecified Is this a current diagnosis for this admission?: Yes Plan: Her wound culture is positive for triple organisms namely Serratia marcescens, Enterococcus faecalis and Pseudomonas aeruginosa. Antibiotics switched to Zosyn from Unasyn. (3) Coronary artery disease Qualifiers: Coronary Disease-Associated Artery/Lesion type: [place] artery Is this a current diagnosis for this admission?: Yes Plan: Status post 3 stent placement in November 2018. Currently patient does not have any anginal symptoms. (4) Seizure disorder Is this a current diagnosis for this admission?: Yes Plan: In remission (5) Type 2 diabetes mellitus Is this a current diagnosis for this admission?: Yes
[2019-03-27] MEDS: NORMAL SALINE 1000 ML 1,000 ML IV PRN (16:06)
[2019-03-27] MEDS: ATORVASTATIN CALCIUM 80 MG TABLET PO SCH (21:59)
[2019-03-28] MEDS: OXYCODONE HCL IR 5 MG TABLET PO PRN ×4 (00:49→17:53)
[2019-03-28] MEDS: PIPERACILLIN SODIUM/TAZOBACTAM 4.5 GM in NORMAL SALINE 100 ML IV SCH ×4 (00:51→17:53)
[2019-03-28] MEDS: TEMAZEPAM 15 MG CAPSULE PO PRN (01:13)
[2019-03-28] MEDS: NORMAL SALINE 1000 ML 1,000 ML IV PRN ×2 (05:51→17:54)
[2019-03-28] MEDS: INSULIN LISPRO 100 UNIT/ML 3 ML VIAL SUBCUT SCH ×4 (08:10→22:21)
[2019-03-28] MEDS: DOCUSATE SODIUM 100 MG CAPSULE PO SCH ×2 (09:19→17:12)
[2019-03-28] MEDS: AMIODARONE HCL 200 MG TABLET PO SCH (09:25)
[2019-03-28] MEDS: ENOXAPARIN SODIUM INJ 40 MG/0.4 ML DISP.SYRIN SUBCUT SCH (09:25)
[2019-03-28] MEDS: FAMOTIDINE 20 MG TABLET PO SCH ×2 (09:25→22:14)
[2019-03-28] MEDS: CYANOCOBALAMIN (VITAMIN B-12) 1,000 MCG TABLET PO SCH (09:25)
[2019-03-28] MEDS: ASPIRIN 81 MG TABLET, ENT COATED PO SCH (09:25)
[2019-03-28] MEDS: SITAGLIPTIN PHOSPHATE 50 MG TABLET PO SCH (09:25)
[2019-03-28] MEDS: METFORMIN HCL 500 MG TABLET PO SCH ×2 (09:25→17:12)
[2019-03-28] MEDS: CLOPIDOGREL BISULFATE 75 MG TABLET PO SCH (09:25)
[2019-03-28] MEDS: CHOLECALCIFEROL (D3) 1,000 UNIT (25 MCG) TABLET PO SCH (09:25)
[2019-03-28] MEDS: SILVER SULFADIAZINE 1% CREAM 50 GM TP SCH ×2 (09:26→22:14)
[2019-03-28] MEDS: FENTANYL 50 MCG/HR PATCH.TD72 TD SCH (09:26)
[2019-03-28] MEDS: MULTIVITAMIN ORAL LIQUID 60 ML PO SCH (09:27)
[2019-03-28] MEDS: MEGESTROL ACETATE SUSP 400 MG/10 ML UDCUP PO SCH (09:28)
[2019-03-28] MEDS ORDERED: MULTIVITAMIN (INFANT) DROPS 50 ML PO SCH (10:00)
--- NOTE | 2019-03-28 12:26 | PDOC PROGRESS REPORT ---
Subjective Progress Note for:: 03/28/19 Subjective:: JESSE HURLEY is a 83 year old female patient brought by her daughter with chief complaint of back and lower extremity pain. Since patient is weak and deconditioned the brief history is obtained from her daughter who is in the room during my encounter. Per her daughter patient has been doing well and she does not have significant medical history and she does not take any medication except chronic osteoarthritis up until December 06, 2018 when she had cardiac arrest for which patient was taken to [facility] in [facility]. Patient was successfully resuscitated and she has found to have coronary artery disease which requires 3 stent placement. Reportedly her hospital course is complicated by aspiration pneumonia. After discharge patient went to rehab then to [facility] facility. Reportedly is a [facility] facility patient developed decubitus ulcer. On examination she has infected sacral and gluteal decubitus ulcer. Her blood work shows market leukocytosis of 20,000. Rate her imaging studies are unremarkable. 03/24/2019: Patient seen lying in bed. Patient complains of back pain and cramping his legs. She does not have fever, nausea or vomiting. She eats well. She has been on Unasyn for infected sacral decubitus ulcer. 03/25/2019: Patient seen screaming from pain while the nurse and patient certified hyperbaric technician try to change her position. Patient also running hypotension so I discontinued her carvedilol. Otherwise patient is awake alert and oriented. She does not have any fever nausea or vomiting. Physical therapy has been working with her. 03/26/2019: Patient reports this her back and lower extremity pain relatively improved after she was put on fentanyl patch. Her vital sign and blood works are reviewed. Clinically patient is stable but patient has hypotension and she is bolused with thousand mL of normal saline. Her wound culture grew Enterococcus faecalis, Serratia marcescens, Pseudomonas aeruginosa. And her blood culture is positive for Pseudomonas aeruginosa. Her Unasyn is switched to Zosyn. Her white cell count at admission was 22 date is 15.5. 03/27/2019: Patient seen resting in bed and chatting with her granddaughter. She reports her pain is relatively controlled. We will continue the current management. 0 : No adverse event overnight. Her white cell count trended from 20,000 and today it is 10,000. Rehab placement process initiated. Reason For Visit: INFECTED SACRAL DECUBITUS ULCER Physical Exam Vital Signs: Temp Pulse Resp BP Pulse Ox 99.0 F 68 14 104/39 L 97 03/28/19 04:25 03/28/19 07:00 03/28/19 04:25 03/28/19 04:25 03/28/19 04:25 Intake & Output 03/27/19 03/28/19 03/29/19 06:59 06:59 06:59 Intake Total 3790 2400 Output Total 450 750 Balance 3340 1650 Weight 81.5 kg 83.1 kg General appearance: PRESENT: no acute distress Head exam: PRESENT: atraumatic Neck exam: ABSENT: carotid bruit, JVD, lymphadenopathy, thyromegaly Respiratory exam: PRESENT: clear to auscultation teri. ABSENT: rales, rhonchi, wheezes Cardiovascular exam: PRESENT: RRR. ABSENT: diastolic murmur, rubs, systolic murmur Neurological exam: PRESENT: alert, awake Results Laboratory Results: 03/27/19 05:53 03/25/19 04:07 03/23/19 03/23/19 03/25/19 10:35 10:35 06:43 Creatine Kinase 160 H 177 H CK-MB (CK-2) 0.77 Troponin I 0.016 03/25/19 06:43 Creatine Kinase CK-MB (CK-2) 0.65 Troponin I 0.029 Impressions: Femur X-Ray 03/23/19 10:12 IMPRESSION: NO RADIOGRAPHIC EVIDENCE OF ACUTE INJURY. Hip/Pelvis X-Ray 03/23/19 10:12 IMPRESSION: No fracture. Chest X-Ray 03/23/19 10:13 IMPRESSION: CARDIAC ENLARGEMENT WITHOUT FAILURE. Lumbar Spine X-Ray 03/23/19 10:13 IMPRESSION: SPONDYLOSIS WITHOUT BONE LESION OR FRACTURE. Assessment and Plan - Diagnosis (1) Gram-negative bacteremia Is this a current diagnosis for this admission?: Yes Plan: Repeat blood cultures pending (2) Infected decubitus ulcer Qualifiers: Pressure injury stage: stage 2 Qualified Code(s): L89.92 - Pressure ulcer of unspecified site, stage 2; L08.9 - Local infection of the skin and subcutaneous tissue, unspecified Is this a current diagnosis for this admission?: Yes Plan: Her wound culture is positive for triple organisms namely Serratia marcescens, Enterococcus faecalis and Pseudomonas aeruginosa. Antibiotics switched to Zosyn from Unasyn. (3) Coronary artery disease Qualifiers: Coronary Disease-Associated Artery/Lesion type: [place] artery Is this a current diagnosis for this admission?: Yes Plan: Status post 3 stent placement in November 2018. Currently patient does not have any anginal symptoms. (4) Seizure disorder Is this a current diagnosis for this admission?: Yes Plan: In remission (5) Type 2 diabetes mellitus Is this a current diagnosis for this admission?: Yes Plan: Her metformin and sliding scale has been resumed.
[2019-03-28] MEDS: ACETAMINOPHEN 325 MG TABLET PO PRN (19:58)
[2019-03-28] MEDS: ATORVASTATIN CALCIUM 80 MG TABLET PO SCH (22:14)
[2019-03-29] MEDS: PIPERACILLIN SODIUM/TAZOBACTAM 4.5 GM in NORMAL SALINE 100 ML IV SCH ×2 (00:59→06:09)
[2019-03-29] MEDS: HYDROMORPHONE HCL INJ/PF 2 MG/ML AMPULE IV PRN ×3 (00:59→14:17)
[2019-03-29] MEDS: INSULIN LISPRO 100 UNIT/ML 3 ML VIAL SUBCUT SCH ×2 (09:51→22:10)
[2019-03-29] MEDS: METFORMIN HCL 500 MG TABLET PO SCH (09:51)
[2019-03-29] MEDS: DOCUSATE SODIUM 100 MG CAPSULE PO SCH (09:52)
[2019-03-29] MEDS: MEGESTROL ACETATE SUSP 400 MG/10 ML UDCUP PO SCH (09:53)
[2019-03-29] MEDS: ASPIRIN 81 MG TABLET, ENT COATED PO SCH (09:53)
[2019-03-29] MEDS: SITAGLIPTIN PHOSPHATE 50 MG TABLET PO SCH (09:53)
[2019-03-29] MEDS: FAMOTIDINE 20 MG TABLET PO SCH (09:53)
[2019-03-29] MEDS: AMIODARONE HCL 200 MG TABLET PO SCH (09:53)
[2019-03-29] MEDS: MULTIVITAMIN ORAL LIQUID 60 ML PO SCH (09:53)
[2019-03-29] MEDS: ENOXAPARIN SODIUM INJ 40 MG/0.4 ML DISP.SYRIN SUBCUT SCH (09:53)
[2019-03-29] MEDS: CLOPIDOGREL BISULFATE 75 MG TABLET PO SCH (09:53)
[2019-03-29] MEDS: CHOLECALCIFEROL (D3) 1,000 UNIT (25 MCG) TABLET PO SCH (09:54)
[2019-03-29] MEDS: CYANOCOBALAMIN (VITAMIN B-12) 1,000 MCG TABLET PO SCH (09:54)
[2019-03-29] MEDS ORDERED: MIDODRINE HCL 5 MG TABLET PO SCH (10:00)
--- NOTE | 2019-03-29 10:06 | PDOC PROGRESS REPORT ---
Subjective Progress Note for:: 03/29/19 Subjective:: JESSE HURLEY is a 83 year old female patient brought by her daughter with chief complaint of back and lower extremity pain. Since patient is weak and deconditioned the brief history is obtained from her daughter who is in the room during my encounter. Per her daughter patient has been doing well and she does not have significant medical history and she does not take any medication except chronic osteoarthritis up until December 06, 2018 when she had cardiac arrest for which patient was taken to [facility] in [facility]. Patient was successfully resuscitated and she has found to have coronary artery disease which requires 3 stent placement. Reportedly her hospital course is complicated by aspiration pneumonia. After discharge patient went to rehab then to residential facility. Reportedly is a residential facility patient developed decubitus ulcer. On examination she has infected sacral and gluteal decubitus ulcer. Her blood work shows market leukocytosis of 20,000. Rate her imaging studies are unremarkable. 03/24/2019: Patient seen lying in bed. Patient complains of back pain and cramping his legs. She does not have fever, nausea or vomiting. She eats well. She has been on Unasyn for infected sacral decubitus ulcer. 03/25/2019: Patient seen screaming from pain while the nurse and patient planetarium technician try to change her position. Patient also running hypotension so I discontinued her carvedilol. Otherwise patient is awake alert and oriented. She does not have any fever nausea or vomiting. Physical therapy has been working with her. 03/26/2019: Patient reports this her back and lower extremity pain relatively improved after she was put on fentanyl patch. Her vital sign and blood works are reviewed. Clinically patient is stable but patient has hypotension and she is bolused with thousand mL of normal saline. Her wound culture grew Enterococcus faecalis, Serratia marcescens, Pseudomonas aeruginosa. And her blood culture is positive for Pseudomonas aeruginosa. Her Unasyn is switched to Zosyn. Her white cell count at admission was 22 date is 15.5. 03/27/2019: Patient seen resting in bed and chatting with her granddaughter. She reports her pain is relatively controlled. We will continue the current management. 0 : No adverse event overnight. Her white cell count trended from 20,000 and today it is 10,000. Rehab placement process initiated. 03/29/2019: This morning I have a long discussion with patient's daughter who is the POA and she states that she does not want her mom screened and suffered from pain. She vehemently states that she wanted to be on comfort care only. Reason For Visit: INFECTED SACRAL DECUBITUS ULCER Physical Exam Vital Signs: Temp Pulse Resp BP Pulse Ox 98.6 F 57 L 16 99/47 L 99 03/29/19 04:26 03/29/19 07:00 03/29/19 04:26 03/29/19 04:26 03/29/19 04:26 Intake & Output 03/28/19 03/29/19 03/30/19 06:59 06:59 06:59 Intake Total 2400 2720 Output Total 750 675 Balance 1650 2045 Weight 83.1 kg 82 kg Results Laboratory Results: 03/27/19 05:53 03/25/19 04:07 03/23/19 03/23/19 03/25/19 10:35 10:35 06:43 Creatine Kinase 160 H 177 H CK-MB (CK-2) 0.77 Troponin I 0.016 03/25/19 06:43 Creatine Kinase CK-MB (CK-2) 0.65 Troponin I 0.029 Impressions: Femur X-Ray 03/23/19 10:12 IMPRESSION: NO RADIOGRAPHIC EVIDENCE OF ACUTE INJURY. Hip/Pelvis X-Ray 03/23/19 10:12 IMPRESSION: No fracture. Chest X-Ray 03/23/19 10:13 IMPRESSION: CARDIAC ENLARGEMENT WITHOUT FAILURE. Lumbar Spine X-Ray 03/23/19 10:13 IMPRESSION: SPONDYLOSIS WITHOUT BONE LESION OR FRACTURE. Assessment and Plan - Diagnosis (1) Gram-negative bacteremia Is this a current diagnosis for this admission?: Yes Plan: Comfort care (2) Infected decubitus ulcer Qualifiers: Pressure injury stage: stage 2 Qualified Code(s): L89.92 - Pressure ulcer of unspecified site, stage 2; L08.9 - Local infection of the skin and subcutaneous tissue, unspecified Is this a current diagnosis for this admission?: Yes Plan: Comfort care (3) Coronary artery disease Qualifiers: Coronary Disease-Associated Artery/Lesion type: [place] artery Is this a current diagnosis for this admission?: Yes Plan: Comfort care (4) Seizure disorder Is this a current diagnosis for this admission?: Yes Plan: Comfort care (5) Type 2 diabetes mellitus Is this a current diagnosis for this admission?: Yes Plan: Comfort care
[2019-03-29] MEDS: FENTANYL 75 MCG/HR PATCH.TD72 TD SCH (12:52)
--- NOTE | 2019-03-29 13:03 | ADVANCED CARE ---
Resuscitation Status: Do Not Resuscitate Discussion: The POA reversed with the comfort care decision. She want her mom to be DNR/DNI only
[2019-03-29] MEDS: NORMAL SALINE 1000 ML 1,000 ML IV PRN (14:19)
[2019-03-29] MEDS ORDERED: FUROSEMIDE INJ/PF 40 MG/4 ML SDV IV ONE (17:30)
[2019-03-29] MEDS: MIRTAZAPINE 15 MG TABLET PO SCH (21:03)
[2019-03-29] MEDS ORDERED: DEXTROSE 40% GEL 15 GM TUBE X 2 PO PRN (21:30)
[2019-03-29] MEDS ORDERED: DEXTROSE 50%-WATER SYRINGE 12.5 GM/25 ML DOSE IV PRN (21:30)
[2019-03-29] MEDS ORDERED: GLUCAGON,HUMAN RECOMB 1 MG INJ IM PRN (21:30)
[2019-03-29] MEDS ORDERED: DEXTROSE 50%-WATER SYRINGE 25 GM/50 ML DOSE IV PRN (21:30)
[2019-03-29] MEDS ORDERED: DEXTROSE 40% GEL 15 GM TUBE PO PRN (21:30)
[2019-03-30] MEDS ORDERED: METOPROLOL TARTRATE PF/INJ 5 MG/5 ML SDV IV ONE ×2 (05:38→05:45)
[2019-03-30] MEDS: NORMAL SALINE 1000 ML 1,000 ML IV PRN (05:51)
[2019-03-30 06:28] LABS: ANION GAP 10 (5-19); BLOOD UREA NITROGEN 10 mg/dL (7-20); CALCIUM 8.9 mg/dL (8.4-10.2); CARBON DIOXIDE 22 mmol/L (22-30); CHLORIDE 106 mmol/L (98-107); GLUCOSE 81 mg/dL (75-110); POTASSIUM 3.4 mmol/L (3.6-5.0)
[2019-03-30] MEDS: INSULIN LISPRO 100 UNIT/ML 3 ML VIAL SUBCUT SCH ×4 (08:34→21:52)
[2019-03-30] MEDS: LEVOFLOXACIN 750 MG/D5W RTU 750 MG/150 ML RTUPB IV SCH (09:16)
[2019-03-30] MEDS: CHOLECALCIFEROL (D3) 1,000 UNIT (25 MCG) TABLET PO SCH (09:16)
[2019-03-30] MEDS: MEGESTROL ACETATE SUSP 400 MG/10 ML UDCUP PO SCH (09:16)
[2019-03-30] MEDS: MULTIVITAMIN TABLET PO SCH (09:16)
--- NOTE | 2019-03-30 09:35 | EKG REPORT ---
SEVERITY:- ABNORMAL ECG - ATRIAL FIBRILLATION LEFT BUNDLE BRANCH BLOCK : Confirmed by: Talib Cochran MD 30-Mar-2019 09:34:39
--- NOTE | 2019-03-30 10:37 | PDOC PROGRESS REPORT ---
Subjective Progress Note for:: 03/30/19 Subjective:: JESSE HURLEY is a 83 year old female patient brought by her daughter with chief complaint of back and lower extremity pain. Since patient is weak and deconditioned the brief history is obtained from her daughter who is in the room during my encounter. Per her daughter patient has been doing well and she does not have significant medical history and she does not take any medication except chronic osteoarthritis up until December 06, 2018 when she had cardiac arrest for which patient was taken to [facility] in [facility]. Patient was successfully resuscitated and she has found to have coronary artery disease which requires 3 stent placement. Reportedly her hospital course is complicated by aspiration pneumonia. After discharge patient went to rehab then to detention facility. Reportedly is a detention facility patient developed decubitus ulcer. On examination she has infected sacral and gluteal decubitus ulcer. Her blood work shows market leukocytosis of 20,000. Rate her imaging studies are unremarkable. 03/24/2019: Patient seen lying in bed. Patient complains of back pain and cramping his legs. She does not have fever, nausea or vomiting. She eats well. She has been on Unasyn for infected sacral decubitus ulcer. 03/25/2019: Patient seen screaming from pain while the nurse and patient fuel technician try to change her position. Patient also running hypotension so I discontinued her carvedilol. Otherwise patient is awake alert and oriented. She does not have any fever nausea or vomiting. Physical therapy has been working with her. 03/26/2019: Patient reports this her back and lower extremity pain relatively improved after she was put on fentanyl patch. Her vital sign and blood works are reviewed. Clinically patient is stable but patient has hypotension and she is bolused with thousand mL of normal saline. Her wound culture grew Enterococcus faecalis, Serratia marcescens, Pseudomonas aeruginosa. And her blood culture is positive for Pseudomonas aeruginosa. Her Unasyn is switched to Zosyn. Her white cell count at admission was 22 date is 15.5. 03/27/2019: Patient seen resting in bed and chatting with her granddaughter. She reports her pain is relatively controlled. We will continue the current management. 0 : No adverse event overnight. Her white cell count trended from 20,000 and today it is 10,000. Rehab placement process initiated. 03/29/2019: This morning I have a long discussion with patient's daughter who is the POA and she states that she does not want her mom screened and suffered from pain. She vehemently states that she wanted to be on comfort care only. 03/30/2019: Patient seen resting in bed comfortably. Is well controlled with fentanyl patch 75 liam and PRN hydromorphone. Patient's daughter who is the POA reverse it her decision of comfort care to DNR/DNI. Once patient is stable can be transferred to detention facility for rehab. Reason For Visit: INFECTED SACRAL DECUBITUS ULCER Physical Exam Vital Signs: Temp Pulse Resp BP Pulse Ox 99.4 F 97 14 94/55 L 98 03/30/19 07:20 03/30/19 07:20 03/30/19 07:20 03/30/19 07:20 03/30/19 07:20 Intake & Output 03/29/19 03/30/19 03/31/19 06:59 06:59 06:59 Intake Total 2720 987 283 Output Total 675 4925 Balance 2045 -3938 283 Weight 82 kg 77.5 kg General appearance: PRESENT: no acute distress Eye exam: PRESENT: conjunctiva pink Mouth exam: PRESENT: dry mucosa Neck exam: ABSENT: carotid bruit, JVD, lymphadenopathy, thyromegaly Respiratory exam: PRESENT: clear to auscultation teri. ABSENT: rales, rhonchi, wheezes Cardiovascular exam: PRESENT: irregular rhythm GI/Abdominal exam: PRESENT: normal bowel sounds, soft. ABSENT: distended, guarding, mass, organolmegaly, rebound, tenderness Neurological exam: PRESENT: alert, awake Results Laboratory Results: 03/27/19 05:53 03/30/19 05:53 03/30/19 05:53 Sodium 138.0 Potassium 3.4 L Chloride 106 Carbon Dioxide 22 Anion Gap 10 BUN 10 Creatinine 0.67 Est GFR ( Amer) > 60 Glucose 81 Calcium 8.9 Magnesium 1.6 03/23/19 03/23/19 03/25/19 10:35 10:35 06:43 Creatine Kinase 160 H 177 H CK-MB (CK-2) 0.77 Troponin I 0.016 03/25/19 06:43 Creatine Kinase CK-MB (CK-2) 0.65 Troponin I 0.029 Impressions: Femur X-Ray 03/23/19 10:12 IMPRESSION: NO RADIOGRAPHIC EVIDENCE OF ACUTE INJURY. Hip/Pelvis X-Ray 03/23/19 10:12 IMPRESSION: No fracture. Chest X-Ray 03/23/19 10:13 IMPRESSION: CARDIAC ENLARGEMENT WITHOUT FAILURE. Lumbar Spine X-Ray 03/23/19 10:13 IMPRESSION: SPONDYLOSIS WITHOUT BONE LESION OR FRACTURE. Assessment and Plan - Diagnosis (1) Gram-negative bacteremia Is this a current diagnosis for this admission?: Yes Plan: The repeat blood culture reported as no growth in 72 hours. (2) Infected decubitus ulcer Qualifiers: Pressure injury stage: stage 2 Qualified Code(s): L89.92 - Pressure ulcer of unspecified site, stage 2; L08.9 - Local infection of the skin and subcutaneous tissue, unspecified Is this a current diagnosis for this admission?: Yes Plan: Comfort care (3) Coronary artery disease Qualifiers: Coronary Disease-Associated Artery/Lesion type: [place] artery Is this a current diagnosis for this admission?: Yes Plan: Comfort care (4) Seizure disorder Is this a current diagnosis for this admission?: Yes Plan: Comfort care (5) Type 2 diabetes mellitus Is this a current diagnosis for this admission?: Yes Plan: Comfort care (6) Hypertension Qualifiers: Hypertension type: essential hypertension Qualified Code(s): I10 - Essential (primary) hypertension Is this a current diagnosis for this admission?: Yes Plan: Currently patient is hypotensive so she is not on any antihypertensive medication.
[2019-03-30] MEDS: HYDROMORPHONE HCL INJ/PF 2 MG/ML AMPULE IV PRN ×2 (12:00→22:05)
[2019-03-30] MEDS: MIRTAZAPINE 15 MG TABLET PO SCH (22:02)
[2019-03-31] MEDS: INSULIN LISPRO 100 UNIT/ML 3 ML VIAL SUBCUT SCH ×4 (08:02→22:00)
[2019-03-31] MEDS: LEVOFLOXACIN 750 MG/D5W RTU 750 MG/150 ML RTUPB IV SCH (09:54)
[2019-03-31] MEDS: MULTIVITAMIN TABLET PO SCH (09:54)
[2019-03-31] MEDS: MEGESTROL ACETATE SUSP 400 MG/10 ML UDCUP PO SCH (09:54)
[2019-03-31] MEDS: CHOLECALCIFEROL (D3) 1,000 UNIT (25 MCG) TABLET PO SCH (09:54)
[2019-03-31] MEDS: HYDROMORPHONE HCL INJ/PF 2 MG/ML AMPULE IV PRN ×2 (10:13→15:52)
--- NOTE | 2019-03-31 13:12 | PDOC PROGRESS REPORT ---
Subjective Progress Note for:: 03/31/19 Subjective:: resting in bed with eyes closed. Awakens easily. She tells me that she wants to get better and go home. Per the nursing staff this changes frequently and at times she states she wants nothing other than to go home and . Reason For Visit: INFECTED SACRAL DECUBITUS ULCER Physical Exam Vital Signs: Temp Pulse Resp BP Pulse Ox 98.4 F 68 19 118/49 L 100 03/31/19 12:26 03/31/19 12:26 03/31/19 12:26 03/31/19 12:26 03/31/19 12:26 Intake & Output 03/30/19 03/31/19 04/01/19 06:59 06:59 06:59 Intake Total 987 1758 240 Output Total 4925 1675 300 Balance -3938 83 -60 Weight 77.5 kg 84.4 kg General appearance: PRESENT: no acute distress, cooperative, well-developed Head exam: PRESENT: atraumatic, normocephalic Mouth exam: PRESENT: dry mucosa, tongue midline Respiratory exam: PRESENT: clear to auscultation teri, symmetrical, unlabored. ABSENT: rales, rhonchi, tachypnea, wheezes Cardiovascular exam: PRESENT: RRR, +S1, +S2. ABSENT: diastolic murmur, systolic murmur GI/Abdominal exam: PRESENT: diminished bowel sounds, soft, tenderness - Minimal lower abdomen. ABSENT: distended, guarding Rectal exam: PRESENT: deferred Extremities exam: PRESENT: pedal edema, +1 edema Musculoskeletal exam: PRESENT: normal inspection Neurological exam: PRESENT: alert, awake, oriented to person, oriented to place, oriented to time, oriented to situation, CN II-XII grossly intact Psychiatric exam: PRESENT: flat affect. ABSENT: agitated, anxious Focused psych exam: ABSENT: delusional, restlessness Skin exam: PRESENT: other - Did not examine ulcer at this time Results Laboratory Results: 03/27/19 05:53 03/30/19 05:53 03/23/19 03/23/19 03/25/19 10:35 10:35 06:43 Creatine Kinase 160 H 177 H CK-MB (CK-2) 0.77 Troponin I 0.016 03/25/19 06:43 Creatine Kinase CK-MB (CK-2) 0.65 Troponin I 0.029 Impressions: Femur X-Ray 03/23/19 10:12 IMPRESSION: NO RADIOGRAPHIC EVIDENCE OF ACUTE INJURY. Hip/Pelvis X-Ray 03/23/19 10:12 IMPRESSION: No fracture. Chest X-Ray 03/23/19 10:13 IMPRESSION: CARDIAC ENLARGEMENT WITHOUT FAILURE. Lumbar Spine X-Ray 03/23/19 10:13 IMPRESSION: SPONDYLOSIS WITHOUT BONE LESION OR FRACTURE. Assessment and Plan - Diagnosis (1) Bacteremia due to Pseudomonas Is this a current diagnosis for this admission?: Yes Plan: The patient had multiple blood cultures positive for pseudomonas aeruginosa. This was also isolated in the decubitus ulcer and therefore likely was the point of origin. She is on levofloxacin scheduled through April 06. Repeat blood cultures so far negative. (2) Infected decubitus ulcer Qualifiers: Pressure injury stage: stage 2 Qualified Code(s): L89.92 - Pressure ulcer of unspecified site, stage 2; L08.9 - Local infection of the skin and subcutaneous tissue, unspecified Is this a current diagnosis for this admission?: Yes Plan: Polymicrobial results from wound culture swab. Pseudomonas was present. We will continue levofloxacin as ordered. The patient should have every 2 hour offloading with repositioning. (3) Coronary artery disease Qualifiers: Coronary Disease-Associated Artery/Lesion type: [place] artery Is this a current diagnosis for this admission?: Yes Plan: No complaints of chest pain. We will continue current regimen for now. (4) Seizure disorder Is this a current diagnosis for this admission?: Yes Plan: Has been seizure-free during this hospitalization. Currently on no antiepileptic medications. 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 Her appetite is been poor. Without medication her fingersticks are reasonably controlled considering her infection. Consider return to home regimen if required. (6) Hypertension Qualifiers: Hypertension type: essential hypertension Qualified Code(s): I10 - Essential (primary) hypertension Is this a current diagnosis for this admission?: Yes Plan: Currently on no antihypertensives and her blood pressure remains reasonably controlled. She was previously on valsartan and furosemide. She was also previously on amiodarone. We will continue to monitor and adjust medications as indicated. - Time Time Spent with patient: 15-24 minutes Medications reviewed and adjusted accordingly: Yes - Plan Summary Plan Summary: The patient did report that she previously walked with a walker and or crutches. Her visitor (nephew or grandson I believe) states that she also uses a wheelchair. I will asked physical therapy to assess. Evidently there is been some changes in status. I believe at one point comfort care was initiated but certain family members have changed her back to DO NOT RESUSCITATE. At this point a family meeting might be helpful. The patient does alternate what she tells staff. She told me today that she wants to get better but she told 1 of the nurses that she wants to just go home and .
[2019-03-31] MEDS: MIRTAZAPINE 15 MG TABLET PO SCH (21:04)
[2019-04-01 05:40] LABS: ABSOLUTE EOSINOPHILS # (AUTO) 0.1 10^3/uL (0.0-0.6); ABSOLUTE LYMPHOCYTES (AUTO) 2.4 10^3/uL (0.5-4.7); ABSOLUTE MONOCYTES (AUTO) 1.1 10^3/uL (0.1-1.4); ABSOLUTE NEUT (AUTO) 6.2 10^3/uL (1.7-8.2); BASOPHILS % (AUTO) 0.4 % (0-2); EOSINOPHILS % (AUTO) 1.5 % (0-6); HEMATOCRIT 27.6 % (36.0-47.0); LYMPHOCYTES % (AUTO) 24.5 % (13-45); MEAN CORPUSCULAR HEMOGLOBIN 23.7 pg (27.0-33.4); MEAN CORPUSCULAR HGB CONC 32.6 g/dL (32.0-36.0); MEAN CORPUSCULAR VOLUME 73 fl (80-97); PLATELET COUNT 563 10^3/uL (150-450); RED BLOOD COUNT 3.79 10^6/uL (3.72-5.28); RED CELL DISTRIBUTION WIDTH 17.5 % (11.5-14.0); SEGMENTED NEUTROPHILS % (AUTO) 62.6 % (42-78); TOTAL CELLS COUNTED % (AUTO) 100 %; WHITE BLOOD COUNT 9.9 10^3/uL (4.0-10.5)
[2019-04-01 05:56] LABS: ANION GAP 8 (5-19); BLOOD UREA NITROGEN 7 mg/dL (7-20); CALCIUM 9.3 mg/dL (8.4-10.2); CARBON DIOXIDE 25 mmol/L (22-30); CHLORIDE 104 mmol/L (98-107); GLUCOSE 113 mg/dL (75-110); POTASSIUM 3.6 mmol/L (3.6-5.0)
--- NOTE | 2019-04-01 08:49 | Progress Note Acknowledgement ---
Progress Note Acknowledgement Progess Note Acknowledgement: I, the undersigned member of the medical staff with appropriate privileges and with supervisory authority over [ PAC], a dependent practice allied health professional, acknowledge that I have reviewed the progress notes entered on this patient, and in my professional judgment believe that the assessment made and/or any care evidenced was appropriate
--- NOTE | 2019-04-01 09:00 | PDOC PROGRESS REPORT ---
Subjective Progress Note for:: 04/01/19 Subjective:: Patient is admitted on 825 for back and leg pain the result of infected sacral decubitus patient is growing out Pseudomonas and is currently on Levaquin. The nurses also told me that the patient has a mass on her left breast. After investigating this patient will need further diagnostic studies to rule out cancer. Patient states she is never in her life had a mammogram and she is 83 years old. Patient states that this is been here at least 2 months and she at tributed to a fall January. Patient states that prior to coming to the hospital she was using a walker and ambulating. Patient's only complaint today is "my bones are aching". Patient states that she has arthritis. Reason For Visit: INFECTED SACRAL DECUBITUS ULCER Physical Exam Vital Signs: Temp Pulse Resp BP Pulse Ox 98.6 F 64 11 L 138/55 H 99 04/01/19 03:14 04/01/19 07:00 04/01/19 03:14 04/01/19 03:14 04/01/19 03:14 Intake & Output 03/31/19 04/01/19 04/02/19 06:59 06:59 06:59 Intake Total 1758 630 Output Total 1675 4265 Balance 83 -1845 Weight 84.4 kg 83.9 kg General appearance: PRESENT: no acute distress, other - Patient sitting up in bed eating, feeding herself Respiratory exam: PRESENT: clear to auscultation teri. ABSENT: rales, rhonchi, wheezes Cardiovascular exam: PRESENT: RRR. ABSENT: diastolic murmur, rubs, systolic murmur Skin exam: PRESENT: other - Patient has a hard mass on her left breast approximately 4 to 5 cm in diameter, slight dimpling of the skin around this area. Nurse was present during the exam. Nipple appears normal with no discharge, no redness or warmth to the breast. Results Laboratory Results: 04/01/19 04:26 04/01/19 04:26 04/01/19 04/01/19 04:26 04:26 WBC 9.9 RBC 3.79 Hgb 9.0 L Hct 27.6 L MCV 73 L MCH 23.7 L MCHC 32.6 RDW 17.5 H Plt Count 563 H Seg Neutrophils % 62.6 Sodium 137.4 Potassium 3.6 Chloride 104 Carbon Dioxide 25 Anion Gap 8 BUN 7 Creatinine 0.48 L Est GFR ( Amer) > 60 Glucose 113 H Calcium 9.3 Magnesium 1.5 L 03/27/19 07:06 Blood Blood Culture - Final NO GROWTH IN 5 DAYS 03/27/19 05:53 Blood Blood Culture - Final NO GROWTH IN 5 DAYS 03/23/19 03/23/19 03/25/19 10:35 10:35 06:43 Creatine Kinase 160 H 177 H CK-MB (CK-2) 0.77 Troponin I 0.016 03/25/19 06:43 Creatine Kinase CK-MB (CK-2) 0.65 Troponin I 0.029 Impressions: Femur X-Ray 03/23/19 10:12 IMPRESSION: NO RADIOGRAPHIC EVIDENCE OF ACUTE INJURY. Hip/Pelvis X-Ray 03/23/19 10:12 IMPRESSION: No fracture. Chest X-Ray 03/23/19 10:13 IMPRESSION: CARDIAC ENLARGEMENT WITHOUT FAILURE. Lumbar Spine X-Ray 03/23/19 10:13 IMPRESSION: SPONDYLOSIS WITHOUT BONE LESION OR FRACTURE. Assessment and Plan - Diagnosis (1) Breast mass, left Is this a current diagnosis for this admission?: Yes Plan: Patient states that this mass has been there ever since January when she fell, and according to another provider who was seen this several weeks ago she was told it was a "blood clot". She states that she is never had a mammogram done in her life. She denies pain at this site (2) Bacteremia due to Pseudomonas Is this a current diagnosis for this admission?: Yes Plan: The patient had multiple blood cultures positive for pseudomonas aeruginosa. This was also isolated in the decubitus ulcer and therefore likely was the point of origin. She is on levofloxacin scheduled through April 06. Repeat blood cultures so far negative. 04/01/2019 patient has had blood cultures that grew out Pseudomonas ported on 03/23/2019. Blood cultures after that reported on 03/27/2019 showed no growth in 5 days. Patient is currently on Levaquin until 04/06/2019. This appears to be day 3 of the Levaquin. On admission she was initially put on Unasyn. On 825 her white count was 20,900 today her white count is 9.9. Patient remains afebrile temperature 98.6 blood pressure 138/55, O2 sat 99% on room air (3) Leukocytosis Qualifiers: Leukocytosis type: other Qualified Code(s): D72.828 - Other elevated white blood cell count Is this a current diagnosis for this admission?: Yes Plan: 04/01/2019 stated earlier her white count is come down and is now normal 9.9 patient is currently on Levaquin and remains afebrile - Time Time Spent with patient: 25-34 minutes - Patient has been seen by discharge planning yesterday, hospice is pending
[2019-04-01] MEDS: INSULIN LISPRO 100 UNIT/ML 3 ML VIAL SUBCUT SCH ×4 (09:59→21:35)
[2019-04-01] MEDS: CHOLECALCIFEROL (D3) 1,000 UNIT (25 MCG) TABLET PO SCH (10:06)
[2019-04-01] MEDS: FENTANYL 75 MCG/HR PATCH.TD72 TD SCH (10:06)
[2019-04-01] MEDS: LEVOFLOXACIN 750 MG/D5W RTU 750 MG/150 ML RTUPB IV SCH (10:07)
[2019-04-01] MEDS: MEGESTROL ACETATE SUSP 400 MG/10 ML UDCUP PO SCH (10:07)
[2019-04-01] MEDS: MULTIVITAMIN TABLET PO SCH (10:07)
[2019-04-01] MEDS: HYDROMORPHONE HCL INJ/PF 2 MG/ML AMPULE IV PRN (15:36)
[2019-04-01] MEDS: MIRTAZAPINE 15 MG TABLET PO SCH (21:42)
[2019-04-02] MEDS: ACETAMINOPHEN 325 MG TABLET PO PRN (01:19)
--- NOTE | 2019-04-02 09:05 | PDOC PROGRESS REPORT ---
Subjective Progress Note for:: 04/02/19 Subjective:: Patient is admitted on 03/23 for back and leg pain, the result of infected sacral decubitus. patient is growing out Pseudomonas and is currently on Levaquin. The nurses also told me that the patient has a mass on her left breast. After investigating this patient will need further diagnostic studies to rule out cancer. Patient states she is never in her life had a mammogram and she is 83 years old. Patient states that this is been here at least 2 months and she attributed to a fall January. Patient states that prior to coming to the hospital she was using a walker and ambulating. Patient's only complaint today is "my bones are aching". Patient states that she has arthritis.. 04/02/2019 patient is admitted for infected sacral decubitus. Patient states that prior to being admitted to the hospital she had been in a wheelchair for 3 to 4 weeks nonambulatory in rehab. She states prior to that however she was using a walker and walking by herself since being in the hospital she has not been out of bed although she has been working with PT in bed but I told patient the goal is to get her to transfer weight from the bed to a chair with assistance The report from the ultrasound of the left breast is pending Reason For Visit: INFECTED SACRAL DECUBITUS ULCER Physical Exam Vital Signs: Temp Pulse Resp BP Pulse Ox 98.4 F 65 17 141/56 H 99 04/02/19 07:53 04/02/19 07:53 04/02/19 07:53 04/02/19 07:53 04/02/19 07:53 Intake & Output 04/01/19 04/02/19 04/03/19 06:59 06:59 06:59 Intake Total 630 980 Output Total 5525 4345 Balance -8344 -9714 Weight 83.9 kg 80.9 kg General appearance: PRESENT: no acute distress Respiratory exam: PRESENT: clear to auscultation teri. ABSENT: rales, rhonchi, wheezes Cardiovascular exam: PRESENT: RRR. ABSENT: diastolic murmur, rubs, systolic murmur Extremities exam: PRESENT: other - No no redness to the left breast Neurological exam: PRESENT: alert, awake, oriented to person, oriented to place, oriented to time, oriented to situation, CN II-XII grossly intact. ABSENT: motor sensory deficit Psychiatric exam: PRESENT: appropriate affect, normal mood, other - Patient is in good spirits. ABSENT: homicidal ideation, suicidal ideation Results Laboratory Results: 04/01/19 04:26 04/01/19 04:26 03/27/19 07:06 Blood Blood Culture - Final NO GROWTH IN 5 DAYS 03/27/19 05:53 Blood Blood Culture - Final NO GROWTH IN 5 DAYS 03/23/19 03/23/19 03/25/19 10:35 10:35 06:43 Creatine Kinase 160 H 177 H CK-MB (CK-2) 0.77 Troponin I 0.016 03/25/19 06:43 Creatine Kinase CK-MB (CK-2) 0.65 Troponin I 0.029 Impressions: Femur X-Ray 03/23/19 10:12 IMPRESSION: NO RADIOGRAPHIC EVIDENCE OF ACUTE INJURY. Hip/Pelvis X-Ray 03/23/19 10:12 IMPRESSION: No fracture. Chest X-Ray 03/23/19 10:13 IMPRESSION: CARDIAC ENLARGEMENT WITHOUT FAILURE. Lumbar Spine X-Ray 03/23/19 10:13 IMPRESSION: SPONDYLOSIS WITHOUT BONE LESION OR FRACTURE. Assessment and Plan - Diagnosis (1) Breast mass, left Is this a current diagnosis for this admission?: Yes Plan: Patient states that this mass has been there ever since January when she fell, and according to another provider who was seen this several weeks ago she was told it was a "blood clot". She states that she is never had a mammogram done in her life. She denies pain at this site. 04/02/2019 patient could not have a mammogram done because she is unable to stand for the study. Ultrasound of the left breast from yesterday is still pending concerning the report (2) Bacteremia due to Pseudomonas Is this a current diagnosis for this admission?: Yes Plan: The patient had multiple blood cultures positive for pseudomonas aeruginosa. This was also isolated in the decubitus ulcer and therefore likely was the point of origin. She is on levofloxacin scheduled through April 06. Repeat blood cultures so far negative. 04/01/2019 patient has had blood cultures that grew out Pseudomonas ported on 03/23/2019. Blood cultures after that reported on 03/27/2019 showed no growth in 5 days. Patient is currently on Levaquin until 04/06/2019. This appears to be da y 3 of the Levaquin. On admission she was initially put on Unasyn. On 03/23 her white count was 20,900 today her white count is 9.9. Patient remains afebrile temperature 98.6 blood pressure 138/55, O2 sat 99% on room. 04/02/2019 white count from yesterday continues to slowly improve it is 9.9, H&H is stable. Patient is on day 4 of IV Levaquin. His temperature this morning was 98.4 (3) Leukocytosis Qualifiers: Leukocytosis type: other Qualified Code(s): D72.828 - Other elevated white blood cell count Is this a current diagnosis for this admission?: Yes Plan: 04/01/2019 stated earlier her white count is come down and is now normal 9.9 patient is currently on Levaquin and remains afebrile 04/02/2019 white count is normal, on IV Levaquin day 4 for Pseudomonas infected sacral decubitus - Time Time Spent with patient: 25-34 minutes - Discharge planning is working on placement concerning her daughter Jaymie, with possible hospice. Will ask PT to try to transfer patient's weight
[2019-04-02] MEDS: INSULIN LISPRO 100 UNIT/ML 3 ML VIAL SUBCUT SCH ×4 (09:14→21:29)
[2019-04-02] MEDS: MEGESTROL ACETATE SUSP 400 MG/10 ML UDCUP PO SCH (09:18)
[2019-04-02] MEDS: CHOLECALCIFEROL (D3) 1,000 UNIT (25 MCG) TABLET PO SCH (09:19)
[2019-04-02] MEDS: MULTIVITAMIN TABLET PO SCH (09:19)
[2019-04-02] MEDS: LEVOFLOXACIN 750 MG/D5W RTU 750 MG/150 ML RTUPB IV SCH (09:19)
[2019-04-02] MEDS: HYDROMORPHONE HCL INJ/PF 2 MG/ML AMPULE IV PRN ×2 (09:36→16:34)
--- NOTE | 2019-04-02 18:36 | Progress Note ---
Provider Note Provider Note: 04/02/2019 afternoon I was called by the nurses to get the patient's sacral decubitus. Patient was rolled over on her side, patient complained of a great deal of bony pain in her hips and legs during the procedure, patient was even premedicated prior to. Patient has a very large approximately 6 to 8 cm in diameter decubitus primarily of the right buttocks. There is no odor there is redness around the perimeter but no evidence of tissue cellulitis around the decubitus. Currently they are putting a concoction Silvadene cream, hydrocortisone cream and possibly zinc oxide that was mixed by pharmacy out side of the hospital. I asked if we had a wound care team here, and we do not. It may be that general surgery should be consulted in the next day or 2 for their opinion.
[2019-04-02] MEDS: MIRTAZAPINE 15 MG TABLET PO SCH (21:10)
[2019-04-03] MEDS: HYDROMORPHONE HCL INJ/PF 2 MG/ML AMPULE IV PRN ×3 (02:08→22:27)
[2019-04-03] MEDS: INSULIN LISPRO 100 UNIT/ML 3 ML VIAL SUBCUT SCH ×4 (08:18→22:11)
[2019-04-03 08:41] LABS: ANION GAP 8 (5-19); BLOOD UREA NITROGEN 7 mg/dL (7-20); CALCIUM 9.5 mg/dL (8.4-10.2); CARBON DIOXIDE 29 mmol/L (22-30); CHLORIDE 102 mmol/L (98-107); GLUCOSE 128 mg/dL (75-110); POTASSIUM 3.7 mmol/L (3.6-5.0)
[2019-04-03] MEDS: CHOLECALCIFEROL (D3) 1,000 UNIT (25 MCG) TABLET PO SCH (10:00)
[2019-04-03] MEDS: LEVOFLOXACIN 750 MG/D5W RTU 750 MG/150 ML RTUPB IV SCH (10:00)
[2019-04-03] MEDS: MEGESTROL ACETATE SUSP 400 MG/10 ML UDCUP PO SCH (10:01)
[2019-04-03] MEDS: MULTIVITAMIN TABLET PO SCH (10:01)
--- NOTE | 2019-04-03 10:56 | PDOC PROGRESS REPORT ---
Subjective Progress Note for:: 04/03/19 Subjective:: Patient seen in morning rounds awake and alert, conversational, admitting pain in the buttocks. Family at bedside. No overnight events per nursing, tolerating p.o. and bowel movement. Evaluation of sacrum and right gluteus reveals large 10 x 6 cm eschar with erythemic borders Reason For Visit: INFECTED SACRAL DECUBITUS ULCER Physical Exam Vital Signs: Temp Pulse Resp BP Pulse Ox 97.4 F 61 12 100/44 L 98 04/03/19 03:25 04/03/19 07:00 04/03/19 03:25 04/03/19 03:25 04/03/19 03:25 Intake & Output 04/01/19 04/02/19 04/03/19 11:59 11:59 11:59 Intake Total 780 1130 840 Output Total 2475 4000 2200 Balance -8483 -4544 -9040 Weight 83.9 kg 80.9 kg 83.8 kg General appearance: PRESENT: cooperative, mild distress, well-developed, well- nourished Head exam: PRESENT: atraumatic, normocephalic Eye exam: PRESENT: conjunctiva pink, EOMI, PERRLA. ABSENT: scleral icterus Ear exam: PRESENT: normal external ear exam Mouth exam: PRESENT: moist, tongue midline Neck exam: ABSENT: carotid bruit, JVD, lymphadenopathy, thyromegaly Respiratory exam: PRESENT: clear to auscultation teri. ABSENT: rales, rhonchi, wheezes Cardiovascular exam: PRESENT: RRR. ABSENT: diastolic murmur, rubs, systolic murmur Pulses: PRESENT: normal dorsalis pedis pul Vascular exam: PRESENT: normal capillary refill GI/Abdominal exam: PRESENT: normal bowel sounds, soft. ABSENT: distended, guarding, mass, organolmegaly, rebound, tenderness Torso Front/Back Image: 1 - Multiple hard painless nodules, 6 x 4 cm Rectal exam: PRESENT: deferred Extremities exam: PRESENT: full ROM, other - sacrum and right gluteus reveals la rge 10 x 6 cm eschar with erythemic borders. ABSENT: calf tenderness, clubbing, pedal edema Neurological exam: PRESENT: alert, awake, oriented to person, oriented to place, oriented to time, oriented to situation, CN II-XII grossly intact. ABSENT: motor sensory deficit Psychiatric exam: PRESENT: appropriate affect, normal mood. ABSENT: homicidal ideation, suicidal ideation Skin exam: PRESENT: dry, intact, warm. ABSENT: cyanosis, rash Results Laboratory Results: 04/01/19 04:26 04/03/19 08:11 04/03/19 08:11 Sodium 138.5 Potassium 3.7 Chloride 102 Carbon Dioxide 29 Anion Gap 8 BUN 7 Creatinine 0.53 Est GFR ( Amer) > 60 Glucose 128 H Calcium 9.5 Magnesium 1.6 03/23/19 03/23/19 03/25/19 10:35 10:35 06:43 Creatine Kinase 160 H 177 H CK-MB (CK-2) 0.77 Troponin I 0.016 03/25/19 06:43 Creatine Kinase CK-MB (CK-2) 0.65 Troponin I 0.029 Impressions: Femur X-Ray 03/23/19 10:12 IMPRESSION: NO RADIOGRAPHIC EVIDENCE OF ACUTE INJURY. Hip/Pelvis X-Ray 03/23/19 10:12 IMPRESSION: No fracture. Chest X-Ray 03/23/19 10:13 IMPRESSION: CARDIAC ENLARGEMENT WITHOUT FAILURE. Lumbar Spine X-Ray 03/23/19 10:13 IMPRESSION: SPONDYLOSIS WITHOUT BONE LESION OR FRACTURE. Assessment and Plan - Diagnosis (1) Breast mass, left Is this a current diagnosis for this admission?: Yes Plan: Patient states mass present since January 2019 and was told evaluation suggested calcified hematoma. Ultrasound mammography pending (2) Decubitus ulcer Qualifiers: Pressure injury location: sacral region Pressure injury stage: stage 2 Qualified Code(s): L89.152 - Pressure ulcer of sacral region, stage 2 Is this a current diagnosis for this admission?: Yes Plan: Patient complains of pain with an unstageable eschar covered ulcer about the sacrum and right gluteus reveals large 10 x 6 cm eschar with erythemic borders. Surgery consulted. (3) Type 2 diabetes mellitus Qualifiers: Diabetes mellitus medical terminologist insulin use: without half-way use Is this a current diagnosis for this admission?: Yes Plan: The patient's regimen on hold, Humalog sliding scale as needed - Time Time Spent with patient: 25-34 minutes - Inpatient Certification Medical Necessity: Need Close Monitoring Due to Risk of Patient Decompensation
[2019-04-03] MEDS: MIRTAZAPINE 15 MG TABLET PO SCH (22:11)
[2019-04-04] MEDS: NORMAL SALINE 1000 ML 1,000 ML IV PRN ×2 (07:21→18:42)
[2019-04-04] MEDS: INSULIN LISPRO 100 UNIT/ML 3 ML VIAL SUBCUT SCH ×4 (08:17→22:19)
--- NOTE | 2019-04-04 08:50 | PDOC CONSULTATION ---
Consultation Consult Date: 04/04/19 Provider Consulted: TSERING BAKER Consult reason:: Right gluteal decubitus with cellulitis History of Present Illness Admission Date/PCP: 03/23/19 15:18 History of Present Illness: JESSE HURLEY is a 83 year old female, bedridden, with recent history of catheter will Including placement of 3 coronary artery stents, the patient was sent to rehab where she remained for about 3 weeks and during the time she almost exclusively sat on a wheelchair. She was then admitted to this hospital for further medical evaluation and have been consulted because of the presence of the large right gluteal pressure sore with tissue necrosis. In addition, the patient is complaining of severe back pain is resolved with a recent fall. According to the daughter, the mother underwent x-rays of her back which demonstrated no fracture. Finally, the patient has severe arthritis involving the hips and almost all joints which prevents her from moving around. Past Medical History Cardiac Medical History: Reports: Congestive Heart Failure, Myocardial Infarction, Hypertension EENT Medical History: Reports: None Neurological Medical History: Reports: Seizures Endocrine Medical History: Reports: Diabetes Mellitus Type 2 Renal/ Medical History: Reports: None Malignancy Medical History: Reports: Skin Cancer GI Medical History: Reports: None Musculoskeltal Medical History: Reports: Arthritis Skin Medical History: Reports: None Psychiatric Medical History: Denies: Depression Past Surgical History Past Surgical History: Reports: Cardiac Catheterization, Coronary Stent Social History Smoking Status: Smoker,Current Status Unk Cigarettes Packs Per Day: 1 Number of Years Smokin Last Time Smoked: 1977 Hx Recreational Drug Use: No Hx Prescription Drug Abuse: No - Advance Directive Resuscitation Status: Do Not Resuscitate Family History Family History: Reviewed & Not Pertinent Parental Family History Reviewed: No Children Family History Reviewed: No Sibling(s) Family History Reviewed.: No Medication/Allergy Home Medications: Amiodarone HCl [Cordarone 200 mg Tablet] 200 mg PO DAILY 03/23/19 Aspirin [Ecotrin 81 mg EC Tablet] 81 mg PO DAILY 03/23/19 Atorvastatin Calcium [Lipitor 80 mg Tablet] 80 mg PO QHS 03/23/19 Carvedilol [Coreg 25 mg Tablet] 1 tab PO Q12 03/23/19 Cholecalciferol (Vitamin D3) [Vitamin D3 1000 Unit Tablet] 2,000 unit PO DAILY 03/23/19 Clopidogrel Bisulfate [Plavix 75 mg Tablet] 75 mg PO DAILY 03/23/19 Cyanocobalamin (Vitamin B-12) [Vitamin B12] 5,000 mcg PO DAILY 03/23/19 Furosemide [Lasix 20 mg Tablet] 20 mg PO QAM 03/23/19 Metformin HCl [Glucophage 500 mg Tablet] 1,000 mg PO BIDACBS 03/23/19 Sitagliptin Phosphate [Januvia 50 mg Tablet] 100 mg PO DAILY 03/23/19 Ssd2/Hydrocortison2/Zincox2/Lido5%1 1 applic TOP ASDIR PRN 03/23/19 Valsartan [Diovan 160 mg Tablet] 160 mg PO DAILY 03/23/19 Allergies/Adverse Reactions: No Known Allergies Allergy (Unverified 03/23/19 10:47) Physical Exam Vital Signs: Temp Pulse Resp BP Pulse Ox 98.2 F 64 16 123/49 L 100 04/04/19 08:07 04/04/19 08:07 04/04/19 08:07 04/04/19 08:07 04/04/19 08:07 Intake & Output 04/03/19 04/04/19 04/05/19 06:59 06:59 06:59 Intake Total 990 150 Output Total 2200 1050 Balance -1210 -900 Weight 83.8 kg 81.8 kg General appearance: PRESENT: mild distress Head exam: PRESENT: atraumatic Eye exam: PRESENT: EOMI Mouth exam: PRESENT: neck supple Teeth exam: PRESENT: poor dentation Respiratory exam: PRESENT: clear to auscultation teri Cardiovascular exam: PRESENT: RRR GI/Abdominal exam: PRESENT: soft Extremities exam: PRESENT: other - Decreased range of motion of both lower extremities, neurologically intact, patient able to wiggle her toes and moves both feet with maintained sensation Skin exam: PRESENT: other - Large right mid gluteal area of skin necrosis measuring about 10 cm in diameter with surrounding erythema Results Laboratory Results: 04/01/19 04:26 04/03/19 08:11 04/03/19 08:11 Sodium 138.5 Potassium 3.7 Chloride 102 Carbon Dioxide 29 Anion Gap 8 BUN 7 Creatinine 0.53 Est GFR ( Amer) > 60 Glucose 128 H Calcium 9.5 Magnesium 1.6 03/23/19 03/23/19 03/25/19 10:35 10:35 06:43 Creatine Kinase 160 H 177 H CK-MB (CK-2) 0.77 Troponin I 0.016 03/25/19 06:43 Creatine Kinase CK-MB (CK-2) 0.65 Troponin I 0.029 Impressions: Femur X-Ray 03/23/19 10:12 IMPRESSION: NO RADIOGRAPHIC EVIDENCE OF ACUTE INJURY. Hip/Pelvis X-Ray 03/23/19 10:12 IMPRESSION: No fracture. Chest X-Ray 03/23/19 10:13 IMPRESSION: CARDIAC ENLARGEMENT WITHOUT FAILURE. Lumbar Spine X-Ray 03/23/19 10:13 IMPRESSION: SPONDYLOSIS WITHOUT BONE LESION OR FRACTURE. Assessment & Plan - Diagnosis (1) Infected decubitus ulcer Qualifiers: Pressure injury stage: stage 2 Qualified Code(s): L89.92 - Pressure ulcer of unspecified site, stage 2; L08.9 - Local infection of the skin and subcutaneous tissue, unspecified Is this a current diagnosis for this admission?: Yes - Plan Summary Plan Summary: Assessment: Right gluteal decubitus with skin necrosis and surrounding erythema as per infected decubitus Severe arthritis Moderately severe back pain following fall History of coronary artery disease History of carotid artery disease Plan: Debridement right gluteal pressure sore with possible placement of wound VAC Procedure, risks, complications, alternatives, discussed with the patient and her daughter, they both understand the above, her questions were answered, and they decided to proceed Preop EKG
[2019-04-04] MEDS: HYDROMORPHONE HCL INJ/PF 2 MG/ML AMPULE IV PRN ×2 (08:59→16:03)
[2019-04-04] MEDS: FENTANYL 75 MCG/HR PATCH.TD72 TD SCH (09:00)
[2019-04-04] MEDS: LEVOFLOXACIN 750 MG/D5W RTU 750 MG/150 ML RTUPB IV SCH (09:00)
[2019-04-04 09:09] LABS: ABSOLUTE BASOPHILS # (AUTO) 0.1 10^3/uL (0.0-0.2); ABSOLUTE EOSINOPHILS # (AUTO) 0.2 10^3/uL (0.0-0.6); ABSOLUTE LYMPHOCYTES (AUTO) 2.7 10^3/uL (0.5-4.7); ABSOLUTE MONOCYTES (AUTO) 0.9 10^3/uL (0.1-1.4); ABSOLUTE NEUT (AUTO) 7.1 10^3/uL (1.7-8.2); BASOPHILS % (AUTO) 0.5 % (0-2); EOSINOPHILS % (AUTO) 1.5 % (0-6); HEMATOCRIT 30.9 % (36.0-47.0); HEMOGLOBIN 9.8 g/dL (12.0-15.5); MEAN CORPUSCULAR HEMOGLOBIN 23.2 pg (27.0-33.4); MEAN CORPUSCULAR HGB CONC 31.9 g/dL (32.0-36.0); MEAN CORPUSCULAR VOLUME 73 fl (80-97); MONOCYTES % (AUTO) 8.1 % (3-13); PLATELET COUNT 572 10^3/uL (150-450); RED BLOOD COUNT 4.25 10^6/uL (3.72-5.28); RED CELL DISTRIBUTION WIDTH 17.9 % (11.5-14.0); SEGMENTED NEUTROPHILS % (AUTO) 64.9 % (42-78); TOTAL CELLS COUNTED % (AUTO) 100 %; WHITE BLOOD COUNT 10.9 10^3/uL (4.0-10.5)
[2019-04-04] MEDS ORDERED: LIDOCAINE 1%/EPINEPHRINE INJ 20 ML VIAL ONE (09:27)
[2019-04-04] MEDS ORDERED: MIDAZOLAM 2 MG/2 ML INJ ONE (09:50)
[2019-04-04] MEDS ORDERED: PROPOFOL INJ 200 MG/20 ML VIAL IV ONE (09:50)
[2019-04-04] MEDS ORDERED: FENTANYL CITRATE INJ/PF 100 MCG/2 ML AMPUL ONE (09:50)
--- NOTE | 2019-04-04 09:56 | PDOC PROGRESS REPORT ---
Subjective Progress Note for:: 04/04/19 Subjective:: Patient seen in morning rounds with nurse and surgeon awake and alert, conversational, admitting pain in the buttocks. Family at bedside. No overnight events per nursing, tolerating p.o. and bowel movement. Evaluation of sacrum and right gluteus reveals large 10 x 6 cm eschar with erythemic borders Reason For Visit: INFECTED SACRAL DECUBITUS ULCER Physical Exam Vital Signs: Temp Pulse Resp BP Pulse Ox 98.2 F 64 16 123/49 L 100 04/04/19 09:17 04/04/19 09:17 04/04/19 09:17 04/04/19 09:17 04/04/19 09:17 Intake & Output 04/02/19 04/03/19 04/04/19 11:59 11:59 11:59 Intake Total 1130 990 Output Total 4000 2200 1050 Balance -2870 -1210 -1050 Weight 80.9 kg 83.8 kg 81.8 kg General appearance: PRESENT: cooperative, mild distress Head exam: PRESENT: atraumatic, normocephalic Eye exam: PRESENT: conjunctiva pink, EOMI, PERRLA. ABSENT: scleral icterus Ear exam: PRESENT: normal external ear exam Mouth exam: PRESENT: moist, tongue midline Neck exam: ABSENT: carotid bruit, JVD, lymphadenopathy, thyromegaly Respiratory exam: PRESENT: clear to auscultation teri. ABSENT: rales, rhonchi, wheezes Cardiovascular exam: PRESENT: RRR. ABSENT: diastolic murmur, rubs, systolic murmur Pulses: PRESENT: normal dorsalis pedis pul Vascular exam: PRESENT: normal capillary refill GI/Abdominal exam: PRESENT: normal bowel sounds, soft. ABSENT: distended, guarding, mass, organolmegaly, rebound, tenderness Torso Front/Back Image: 1 - 4 x 4 centimeter nonpainful mass Rectal exam: PRESENT: deferred Extremities exam: PRESENT: full ROM. ABSENT: calf tenderness, clubbing, pedal edema Musculoskeletal exam: PRESENT: tenderness - Intolerable hip pain with bed mobility Neurological exam: PRESENT: alert, awake, oriented to person, oriented to place, oriented to time, oriented to situation, CN II-XII grossly intact. ABSENT: motor sensory deficit Psychiatric exam: PRESENT: appropriate affect, normal mood. ABSENT: homicidal ideation, suicidal ideation Skin exam: PRESENT: dry, intact, warm, other - 6 x 10 cm eschar of the right buttock and sacrum with erythemic borders. ABSENT: cyanosis, rash Results Laboratory Results: 04/04/19 09:02 04/03/19 08:11 04/04/19 09:02 WBC 10.9 H RBC 4.25 Hgb 9.8 L Hct 30.9 L MCV 73 L MCH 23.2 L MCHC 31.9 L RDW 17.9 H Plt Count 572 H Seg Neutrophils % 64.9 03/23/19 03/23/19 03/25/19 10:35 10:35 06:43 Creatine Kinase 160 H 177 H CK-MB (CK-2) 0.77 Troponin I 0.016 03/25/19 06:43 Creatine Kinase CK-MB (CK-2) 0.65 Troponin I 0.029 Impressions: Femur X-Ray 03/23/19 10:12 IMPRESSION: NO RADIOGRAPHIC EVIDENCE OF ACUTE INJURY. Hip/Pelvis X-Ray 03/23/19 10:12 IMPRESSION: No fracture. Chest X-Ray 03/23/19 10:13 IMPRESSION: CARDIAC ENLARGEMENT WITHOUT FAILURE. Lumbar Spine X-Ray 03/23/19 10:13 IMPRESSION: SPONDYLOSIS WITHOUT BONE LESION OR FRACTURE. Assessment and Plan - Diagnosis (1) Breast mass, left Is this a current diagnosis for this admission?: Yes Plan: Asymptomatic, Patient states mass present since January 2019 and was told evaluation suggested calcified hematoma. Ultrasound mammography pending (2) Decubitus ulcer Qualifiers: Pressure injury location: sacral region Pressure injury stage: stage 2 Qualified Code(s): L89.152 - Pressure ulcer of sacral region, stage 2 Is this a current diagnosis for this admission?: Yes Plan: Patient complains of pain with an unstageable eschar covered ulcer about the sacrum and right gluteus reveals large 10 x 6 cm eschar with erythemic borders. Surgery scheduled for this a.m. (3) Type 2 diabetes mellitus Qualifiers: Diabetes mellitus group home insulin use: without group home use Is this a current diagnosis for this admission?: Yes Plan: The patient's regimen on hold, Humalog sliding scale as needed, no hypoglycemic events - Time Time Spent with patient: 25-34 minutes - Inpatient Certification Medical Necessity: Need Close Monitoring Due to Risk of Patient Decompensation
[2019-04-04] MEDS ORDERED: MEPERIDINE HCL/PF INJ 25 MG/1 ML DISP.SYRIN IV PRN (10:21)
[2019-04-04] MEDS ORDERED: PROMETHAZINE HCL INJ 25 MG/1 ML VIAL IV PRN ×2 (10:21)
[2019-04-04] MEDS ORDERED: DIPHENHYDRAMINE HCL 50 MG/ML VIAL IV PRN (10:21)
[2019-04-04] MEDS ORDERED: MORPHINE SULFATE 10 MG/ML INJ IV PRN (10:21)
[2019-04-04] MEDS ORDERED: FENTANYL CITRATE INJ/PF 100 MCG/2 ML AMPUL IV PRN ×3 (10:21)
[2019-04-04] MEDS ORDERED: LIDOCAINE 1% INJ-PF (10 MG/ML) 30 ML SDV ONE (10:28)
[2019-04-04] MEDS: FENTANYL CITRATE INJ/PF 100 MCG/2 ML AMPUL ONE ×2 (11:16→11:21)
[2019-04-04] MEDS ORDERED: ACETAMINOPHEN 1,000 MG/100 ML RTUPB IV ONE (11:18)
--- NOTE | 2019-04-04 11:27 | Operative Report ---
Operative Report DATE OF SURGERY: 04/04/19 PREOPERATIVE DIAGNOSIS: Right gluteal decubitus grade 2-3 POSTOPERATIVE DIAGNOSIS: Right gluteal decubitus grade 3 doing 12 x 16 cm OPERATION: Full-thickness sharp debridement right gluteal decubitus down to muscle and bone measuring 12 x 16 cm in largest diameter SURGEON: TSERING BAKER ANESTHESIA: Local - 40 mL's 1% lidocaine without epinephrine TISSUE REMOVED OR ALTERED: Right gluteal skin, fat tissue, and muscle COMPLICATIONS: None ESTIMATED BLOOD LOSS: Less than 10 mL INTRAOPERATIVE FINDINGS: Area of necrosis of the right gluteal skin with necrotic underlying muscle and fatty tissue PROCEDURE: The procedure was done in the operating room, the patient was placed in lateral decubitus with the right side elevated, the right buttock was prepped draped in the usual fashion and the area was infiltrated with 1% lidocaine without epinephrine. The area of incision was outlined with a surgical marker about one quarter of an inch outside the skin necrotic necrosis area. The skin was then incised with Bovie using the cutting setting and following the outlined markings. The subcutaneous tissue was then divided with Bovie; the inferior half of the decubitus appeared to be superficial with the necrosis limited to the adipose tissue only. However, the upper half of the decubitus appeared to involve the entire full-thickness of the adipose tissue as well as a superficial muscle and some of the excision went down to the sacrum. The specimen was then excised in toto and sent to pathology. Local bleeders were cauterized with Bovie. The area was then irrigated with 1000 mL of normal saline using the jet lavage. Two pieces of Surgicel were then applied to the surgical field followed by the monteiro WoundVAC sponge and followed by enlarge piece of Tegaderm. An opening was made in the Tegaderm on top of the monteiro sponge and a negative section from the WoundVAC was then applied over the opening following connection to the WoundVAC machine with good vacuum. The patient was transferred to the stretcher and to the recovery room in satisfactory conditions.
[2019-04-04] MEDS: MULTIVITAMIN TABLET PO SCH (11:54)
[2019-04-04] MEDS: MEGESTROL ACETATE SUSP 400 MG/10 ML UDCUP PO SCH (11:54)
[2019-04-04] MEDS: CHOLECALCIFEROL (D3) 1,000 UNIT (25 MCG) TABLET PO SCH (11:54)
[2019-04-04] MEDS ORDERED: FLUCONAZOLE 400 MG/NS RTU 400 MG/200 ML RTUPB IV ONE (12:00)
[2019-04-04] MEDS ORDERED: AMPICILLIN SOD/SULBACTAM 1.5 GM VIAL IV SCH (12:00)
[2019-04-04] MEDS: AMPICILLIN SODIUM/SULBACTAM NA 1.5 GM in NORMAL SALINE 50 ML IV SCH ×2 (13:57→17:17)
[2019-04-04] MEDS: NYSTATIN CREAM 15 GM TP SCH (17:18)
[2019-04-04] MEDS: ACETAMINOPHEN 325 MG TABLET PO PRN (22:18)
[2019-04-04] MEDS: MIRTAZAPINE 15 MG TABLET PO SCH (22:18)
[2019-04-05] MEDS: AMPICILLIN SODIUM/SULBACTAM NA 1.5 GM in NORMAL SALINE 50 ML IV SCH ×4 (00:32→17:17)
[2019-04-05 06:46] LABS: ABSOLUTE EOSINOPHILS # (AUTO) 0.1 10^3/uL (0.0-0.6); ABSOLUTE LYMPHOCYTES (AUTO) 3.4 10^3/uL (0.5-4.7); ABSOLUTE MONOCYTES (AUTO) 1.2 10^3/uL (0.1-1.4); ABSOLUTE NEUT (AUTO) 7.6 10^3/uL (1.7-8.2); BASOPHILS % (AUTO) 0.4 % (0-2); EOSINOPHILS % (AUTO) 1.1 % (0-6); HEMATOCRIT 27.9 % (36.0-47.0); HEMOGLOBIN 8.7 g/dL (12.0-15.5); LYMPHOCYTES % (AUTO) 27.4 % (13-45); MEAN CORPUSCULAR HEMOGLOBIN 22.8 pg (27.0-33.4); MEAN CORPUSCULAR HGB CONC 31.2 g/dL (32.0-36.0); MEAN CORPUSCULAR VOLUME 73 fl (80-97); MONOCYTES % (AUTO) 9.6 % (3-13); PLATELET COUNT 525 10^3/uL (150-450); RED BLOOD COUNT 3.82 10^6/uL (3.72-5.28); RED CELL DISTRIBUTION WIDTH 17.7 % (11.5-14.0); SEGMENTED NEUTROPHILS % (AUTO) 61.5 % (42-78); TOTAL CELLS COUNTED % (AUTO) 100 %; WHITE BLOOD COUNT 12.4 10^3/uL (4.0-10.5)
[2019-04-05 07:10] LABS: ANION GAP 9 (5-19); BLOOD UREA NITROGEN 9 mg/dL (7-20); CALCIUM 9.2 mg/dL (8.4-10.2); CARBON DIOXIDE 26 mmol/L (22-30); CHLORIDE 104 mmol/L (98-107); GLUCOSE 140 mg/dL (75-110)
[2019-04-05] MEDS: INSULIN LISPRO 100 UNIT/ML 3 ML VIAL SUBCUT SCH ×4 (07:54→22:53)
[2019-04-05] MEDS: NORMAL SALINE 1000 ML 1,000 ML IV PRN ×2 (08:00→22:54)
--- NOTE | 2019-04-05 08:57 | PDOC PROGRESS REPORT ---
Subjective Progress Note for:: 04/05/19 Reason For Visit: INFECTED SACRAL DECUBITUS ULCER Physical Exam Vital Signs: Temp Pulse Resp BP Pulse Ox 98.7 F 77 12 147/58 H 100 04/05/19 05:33 04/05/19 07:00 04/05/19 05:33 04/05/19 05:33 04/05/19 05:33 Intake & Output 04/04/19 04/05/19 04/06/19 06:59 06:59 06:59 Intake Total 150 3480 Output Total 1050 2845 Balance -900 635 Weight 81.8 kg 88.4 kg Results Laboratory Results: 04/05/19 05:57 04/05/19 05:57 04/04/19 04/04/19 04/05/19 09:02 09:02 05:57 WBC 10.9 H RBC 4.25 Hgb 9.8 L Hct 30.9 L MCV 73 L MCH 23.2 L MCHC 31.9 L RDW 17.9 H Plt Count 572 H Seg Neutrophils % 64.9 Sodium 138.5 Potassium 4.0 Chloride 104 Carbon Dioxide 26 Anion Gap 9 BUN 9 Creatinine 0.57 Est GFR ( Amer) > 60 Glucose 140 H Calcium 9.2 Blood Type O POSITIVE Antibody Screen NEGATIVE 04/05/19 05:57 WBC 12.4 H RBC 3.82 Hgb 8.7 L Hct 27.9 L MCV 73 L MCH 22.8 L MCHC 31.2 L RDW 17.7 H Plt Count 525 H Seg Neutrophils % 61.5 Sodium Potassium Chloride Carbon Dioxide Anion Gap BUN Creatinine Est GFR ( Amer) Glucose Calcium Blood Type Antibody Screen 03/23/19 03/23/19 03/25/19 10:35 10:35 06:43 Creatine Kinase 160 H 177 H CK-MB (CK-2) 0.77 Troponin I 0.016 03/25/19 06:43 Creatine Kinase CK-MB (CK-2) 0.65 Troponin I 0.029 Impressions: Femur X-Ray 03/23/19 10:12 IMPRESSION: NO RADIOGRAPHIC EVIDENCE OF ACUTE INJURY. Hip/Pelvis X-Ray 03/23/19 10:12 IMPRESSION: No fracture. Chest X-Ray 03/23/19 10:13 IMPRESSION: CARDIAC ENLARGEMENT WITHOUT FAILURE. Lumbar Spine X-Ray 03/23/19 10:13 IMPRESSION: SPONDYLOSIS WITHOUT BONE LESION OR FRACTURE. Assessment & Plan - Diagnosis (1) Stage IV pressure ulcer of sacral region Is this a current diagnosis for this admission?: Yes - Plan Summary Plan Summary: This is an 83-year-old female with a stage IV pressure ulcer of the sacrum. She is status post debridement and wound VAC placement. The patient previously complained of back pain. The patient declined an MRI, due to pain. Upon further questioning today, the patient reports that she has constant back pain due to arthritis. Her pain today is no different than it was before her "fall". The patient does not desire any further work-up for her back pain. Continue with wound VAC for now. Wound VAC scheduled to be changed tomorrow. Will follow.
[2019-04-05] MEDS: FLUCONAZOLE 200 MG/NS RTU 200 MG/100 ML RTUPB IV SCH (09:37)
[2019-04-05] MEDS: NYSTATIN CREAM 15 GM TP SCH ×2 (09:37→17:17)
[2019-04-05] MEDS: MEGESTROL ACETATE SUSP 400 MG/10 ML UDCUP PO SCH (09:37)
[2019-04-05] MEDS: MULTIVITAMIN TABLET PO SCH (09:38)
[2019-04-05] MEDS: CHOLECALCIFEROL (D3) 1,000 UNIT (25 MCG) TABLET PO SCH (09:38)
[2019-04-05] MEDS ORDERED: FLUCONAZOLE IV SCH (10:00)
[2019-04-05] MEDS ORDERED: CONTAINER EMPTY IV SCH (10:00)
--- NOTE | 2019-04-05 10:45 | PDOC PROGRESS REPORT ---
Subjective Progress Note for:: 04/05/19 Subjective:: Patient is admitted on 03/23 for back and leg pain, the result of infected sacral decubitus. patient is growing out Pseudomonas and is currently on Levaquin. The nurses also told me that the patient has a mass on her left breast. After investigating this patient will need further diagnostic studies to rule out cancer. Patient states she is never in her life had a mammogram and she is 83 years old. Patient states that this is been here at least 2 months and she attributed to a fall January. Patient states that prior to coming to the hospital she was using a walker and ambulating. Patient's only complaint today is "my bones are aching". Patient states that she has arthritis.. 04/02/2019 patient is admitted for infected sacral decubitus. Patient states that prior to being admitted to the hospital she had been in a wheelchair for 3 to 4 weeks nonambulatory in rehab. She states prior to that however she was using a walker and walking by herself since being in the hospital she has not been out of bed although she has been working with PT in bed but I told patient the goal is to get her to transfer weight from the bed to a chair with assistance The report from the ultrasound of the left breast is pending 04/05/2019 patient has been seen by surgery and in fact had procedures done to read and excised the sacral decubitus. Patient's white count remains stable, she remains afebrile and her blood pressure is well controlled. Glucose is well controlled as well approximately 140 Reason For Visit: INFECTED SACRAL DECUBITUS ULCER Physical Exam Vital Signs: Temp Pulse Resp BP Pulse Ox 98.3 F 66 17 125/48 L 100 04/05/19 07:55 04/05/19 07:55 04/05/19 07:55 04/05/19 07:55 04/05/19 07:55 Intake & Output 04/04/19 04/05/19 04/06/19 06:59 06:59 06:59 Intake Total 150 4480 50 Output Total 1050 2845 Balance -900 1635 50 Weight 81.8 kg 88.4 kg General appearance: PRESENT: no acute distress, other - Resting comfortably Respiratory exam: PRESENT: clear to auscultation teri. ABSENT: rales, rhonchi, wheezes Cardiovascular exam: PRESENT: RRR. ABSENT: diastolic murmur, rubs, systolic murmur Neurological exam: PRESENT: alert, awake, oriented to person, oriented to place, oriented to time, oriented to situation, CN II-XII grossly intact. ABSENT: motor sensory deficit Psychiatric exam: PRESENT: appropriate affect, normal mood. ABSENT: homicidal ideation, suicidal ideation Results Laboratory Results: 04/05/19 05:57 04/05/19 05:57 04/05/19 04/05/19 05:57 05:57 WBC 12.4 H RBC 3.82 Hgb 8.7 L Hct 27.9 L MCV 73 L MCH 22.8 L MCHC 31.2 L RDW 17.7 H Plt Count 525 H Seg Neutrophils % 61.5 Sodium 138.5 Potassium 4.0 Chloride 104 Carbon Dioxide 26 Anion Gap 9 BUN 9 Creatinine 0.57 Est GFR ( Amer) > 60 Glucose 140 H Calcium 9.2 03/23/19 03/23/19 03/25/19 10:35 10:35 06:43 Creatine Kinase 160 H 177 H CK-MB (CK-2) 0.77 Troponin I 0.016 03/25/19 06:43 Creatine Kinase CK-MB (CK-2) 0.65 Troponin I 0.029 Impressions: Femur X-Ray 03/23/19 10:12 IMPRESSION: NO RADIOGRAPHIC EVIDENCE OF ACUTE INJURY. Hip/Pelvis X-Ray 03/23/19 10:12 IMPRESSION: No fracture. Chest X-Ray 03/23/19 10:13 IMPRESSION: CARDIAC ENLARGEMENT WITHOUT FAILURE. Lumbar Spine X-Ray 03/23/19 10:13 IMPRESSION: SPONDYLOSIS WITHOUT BONE LESION OR FRACTURE. Assessment and Plan - Diagnosis (1) Breast mass, left Is this a current diagnosis for this admission?: Yes Plan: Asymptomatic, Patient states mass present since January 2019 and was told evaluation suggested calcified hematoma. Ultrasound mammography pending. 04/05/2019 have called radiology today to try to get the report from the breast ultrasound that was done 4 days ago. (2) Bacteremia due to Pseudomonas Is this a current diagnosis for this admission?: Yes Plan: The patient had multiple blood cultures positive for pseudomonas aeruginosa. This was also isolated in the decubitus ulcer and therefore likely was the point of origin. She is on levofloxacin scheduled through April 06. Repeat blood cultures so far negative. 04/01/2019 patient has had blood cultures that grew out Pseudomonas ported on 03/23/2019. Blood cultures after that reported on 03/27/2019 showed no growth in 5 days. Patient is currently on Levaquin until 04/06/2019. This appears to be day 3 of the Levaquin. On admission she was initially put on Unasyn. On 03/23 her white count was 20,900 today her white count is 9.9. Patient remains afebrile temperature 98.6 blood pressure 138/55, O2 sat 99% on room. 04/02/2019 white count from yesterday continues to slowly improve it is 9.9, H&H is stable. Patient is on day 4 of IV Levaquin. His temperature this morning was 98.4 04/05/2019 patient is currently on Unasyn day #2, and also Diflucan's IV day #1 awaiting pathology from surgical procedure (3) Leukocytosis Qualifiers: Leukocytosis type: other Qualified Code(s): D72.828 - Other elevated white blood cell count Is this a current diagnosis for this admission?: Yes Plan: 04/01/2019 stated earlier her white count is come down and is now normal 9.9 ariela nt is currently on Levaquin and remains afebrile 04/02/2019 white count is normal, on IV Levaquin day 4 for Pseudomonas infected sacral decubitus. 04/05/2019 count today is 12,400 H&H is stable 8.7 27.9 patient is now on Unasyn IV and Diflucan's IV - Time Time Spent with patient: 25-34 minutes
--- NOTE | 2019-04-05 12:49 | RADIOLOGY REPORT (SQ) ---
EXAM DESCRIPTION: U/S BREAST UNILATERAL LIMITED COMPLETED DATE/TIME: 04/01/2019 6:07 pm REASON FOR STUDY: Left breast only, secondary to mass. COMPARISON: None TECHNIQUE: Static and Realtime grayscale interrogation of focal area(s) of concern in the left breas t(s) acquired. Selected color doppler/spectral images saved to PACS. LIMITATIONS: None. FINDINGS: In the 12 o'clock position corresponding to palpable abnormality, 3.5 x 5 x 2 cm isoechoic lesion with some peripheral flow on color Doppler. Mild posterior shadowing. IMPRESSION: Possible hematoma given reported history of falling and decrease in size of palpable ab normality. However correlation mammography is recommended. BIRAD: 0 Incomplete: Need additional imaging evaluation and/or prior mammograms for comparison.. RECOMMENDATION: RECOMMENDED FOLLOW-UP: If for some reason the patient cannot have mammography, repea t ultrasound follow-up is recommended. COMMENT: The [employer] ([employer]) has developed recommendations for screening MRI of the breasts in certain patient populations, to be used in conjunction with mammography. Breast MRI s urveillance may be appropriate for women with more than 20% lifetime risk of developing breast cancer as determined by genetic testing, significant family history of the disease, or history of mantle r adiation for Hodgkins Disease. [employer] Practice Guidelines 2008. TECHNICAL DOCUMENTATION: FINDING NUMBER: (1) ASSESSMENT: (1) JOB ID: [id number] [employer]- All Rights Reserved Reading location - IP/workstation name: [email or web address]
[2019-04-05] MEDS: ACETAMINOPHEN 325 MG TABLET PO PRN (12:52)
[2019-04-05] MEDS: MIRTAZAPINE 15 MG TABLET PO SCH (22:53)
[2019-04-06] MEDS: AMPICILLIN SODIUM/SULBACTAM NA 1.5 GM in NORMAL SALINE 50 ML IV SCH ×2 (01:02→06:56)
[2019-04-06 06:06] LABS: ABSOLUTE EOSINOPHILS # (AUTO) 0.2 10^3/uL (0.0-0.6); ABSOLUTE LYMPHOCYTES (AUTO) 3.1 10^3/uL (0.5-4.7); ABSOLUTE NEUT (AUTO) 6.8 10^3/uL (1.7-8.2); BASOPHILS % (AUTO) 0.3 % (0-2); HEMATOCRIT 25.2 % (36.0-47.0); HEMOGLOBIN 8.2 g/dL (12.0-15.5); LYMPHOCYTES % (AUTO) 27.5 % (13-45); MEAN CORPUSCULAR HEMOGLOBIN 23.8 pg (27.0-33.4); MEAN CORPUSCULAR HGB CONC 32.6 g/dL (32.0-36.0); MEAN CORPUSCULAR VOLUME 73 fl (80-97); MONOCYTES % (AUTO) 9.3 % (3-13); PLATELET COUNT 445 10^3/uL (150-450); RED BLOOD COUNT 3.45 10^6/uL (3.72-5.28); RED CELL DISTRIBUTION WIDTH 17.8 % (11.5-14.0); SEGMENTED NEUTROPHILS % (AUTO) 60.9 % (42-78); TOTAL CELLS COUNTED % (AUTO) 100 %; WHITE BLOOD COUNT 11.2 10^3/uL (4.0-10.5)
[2019-04-06] MEDS: INSULIN LISPRO 100 UNIT/ML 3 ML VIAL SUBCUT SCH ×3 (08:06→16:37)
[2019-04-06] MEDS: NORMAL SALINE 1000 ML 1,000 ML IV PRN (10:28)
[2019-04-06] MEDS: HYDROMORPHONE HCL INJ/PF 2 MG/ML AMPULE IV PRN (10:28)
[2019-04-06] MEDS: FLUCONAZOLE 200 MG/NS RTU 200 MG/100 ML RTUPB IV SCH (10:29)
[2019-04-06] MEDS: MULTIVITAMIN TABLET PO SCH (10:29)
[2019-04-06] MEDS: MEGESTROL ACETATE SUSP 400 MG/10 ML UDCUP PO SCH (10:29)
[2019-04-06] MEDS: NYSTATIN CREAM 15 GM TP SCH ×2 (10:29→17:33)
[2019-04-06] MEDS: CHOLECALCIFEROL (D3) 1,000 UNIT (25 MCG) TABLET PO SCH (10:29)
[2019-04-06] MEDS ORDERED: MEROPENEM 1 GM VIAL IV SCH (10:40)
[2019-04-06] MEDS ORDERED: BENZOIN/ALOE VERA/STORAX/TOLU TINCTURE 60 ML TP SCH (11:00)
--- NOTE | 2019-04-06 11:53 | PDOC PROGRESS REPORT ---
Subjective Progress Note for:: 04/06/19 Subjective:: Patient is admitted on 03/23 for back and leg pain, the result of infected sacral decubitus. patient is growing out Pseudomonas and is currently on Levaquin. The nurses also told me that the patient has a mass on her left breast. After investigating this patient will need further diagnostic studies to rule out cancer. Patient states she is never in her life had a mammogram and she is 83 years old. Patient states that this is been here at least 2 months and she attributed to a fall January. Patient states that prior to coming to the hospital she was using a walker and ambulating. Patient's only complaint today is "my bones are aching". Patient states that she has arthritis.. 04/02/2019 patient is admitted for infected sacral decubitus. Patient states that prior to being admitted to the hospital she had been in a wheelchair for 3 to 4 weeks nonambulatory in rehab. She states prior to that however she was using a walker and walking by herself since being in the hospital she has not been out of bed although she has been working with PT in bed but I told patient the goal is to get her to transfer weight from the bed to a chair with assistance The report from the ultrasound of the left breast is pending 04/05/2019 patient has been seen by surgery and in fact had procedures done to debride and excise the sacral decubitus. Patient's white count remains stable, she remains afebrile and her blood pressure is well controlled. Glucose is well controlled as well approximately 140 04/06/2019 patient is going treatment for sacral decubitus and deconditioning Reason For Visit: INFECTED SACRAL DECUBITUS ULCER Physical Exam Vital Signs: Temp Pulse Resp BP Pulse Ox 98.2 F 78 16 112/56 L 100 04/06/19 07:43 04/06/19 07:43 04/06/19 07:43 04/06/19 07:43 04/06/19 07:43 Intake & Output 04/05/19 04/06/19 04/07/19 06:59 06:59 06:59 Intake Total 4480 3050 1050 Output Total 2845 3275 Balance 1635 -225 1050 Weight 88.4 kg 85.6 kg General appearance: PRESENT: no acute distress, other - She actually states she is feeling much better today, she is sitting up in bed eating complaining about the sausage Respiratory exam: PRESENT: clear to auscultation teri. ABSENT: rales, rhonchi, wheezes Cardiovascular exam: PRESENT: RRR. ABSENT: diastolic murmur, rubs, systolic murmur Gentrourinary exam: PRESENT: other - Deferred to surgery Neurological exam: PRESENT: alert, awake, oriented to person, oriented to place, oriented to time, oriented to situation, CN II-XII grossly intact. ABSENT: motor sensory deficit Psychiatric exam: PRESENT: appropriate affect, normal mood. ABSENT: homicidal ideation, suicidal ideation Results Laboratory Results: 04/06/19 05:47 04/05/19 05:57 04/06/19 05:47 WBC 11.2 H RBC 3.45 L Hgb 8.2 L Hct 25.2 L MCV 73 L MCH 23.8 L MCHC 32.6 RDW 17.8 H Plt Count 445 Seg Neutrophils % 60.9 03/23/19 03/23/19 03/25/19 10:35 10:35 06:43 Creatine Kinase 160 H 177 H CK-MB (CK-2) 0.77 Troponin I 0.016 03/25/19 06:43 Creatine Kinase CK-MB (CK-2) 0.65 Troponin I 0.029 Impressions: Femur X-Ray 03/23/19 10:12 IMPRESSION: NO RADIOGRAPHIC EVIDENCE OF ACUTE INJURY. Hip/Pelvis X-Ray 03/23/19 10:12 IMPRESSION: No fracture. Chest X-Ray 03/23/19 10:13 IMPRESSION: CARDIAC ENLARGEMENT WITHOUT FAILURE. Lumbar Spine X-Ray 03/23/19 10:13 IMPRESSION: SPONDYLOSIS WITHOUT BONE LESION OR FRACTURE. Breast Ultrasound 04/01/19 00:00 IMPRESSION: Possible hematoma given reported history of falling and decrease in size of palpable abnormality. However correlation mammography is recommended. Assessment and Plan - Diagnosis (1) Breast mass, left Is this a current diagnosis for this admission?: Yes Plan: Asymptomatic, Patient states mass present since January 2019 and was told evaluation suggested calcified hematoma. Ultrasound mammography pending. 04/05/2019 have called radiology today to try to get the report from the breast ultrasound that was done 4 days ago. 04/06/2019 appears to be a hematoma by ultrasound. Patient will have a mammogram scheduled as an outpatient (2) Bacteremia due to Pseudomonas Is this a current diagnosis for this admission?: Yes Plan: The patient had multiple blood cultures positive for pseudomonas aeruginosa. This was also isolated in the decubitus ulcer and therefore likely was the point of origin. She is on levofloxacin scheduled through April 06. Repeat blood cultures so far negative. 04/01/2019 patient has had blood cultures that grew out Pseudomonas ported on 03/23/2019. Blood cultures after that reported on 03/27/2019 showed no growth in 5 days. Patient is currently on Levaquin until 04/06/2019. This appears to be day 3 of the Levaquin. On admission she was initially put on Unasyn. On 03/23 her white count was 20,900 today her white count is 9.9. Patient remains afebrile temperature 98.6 blood pressure 138/55, O2 sat 99% on room. 04/02/2019 white count from yesterday continues to slowly improve it is 9.9, H&H is stable. Patient is on day 4 of IV Levaquin. His temperature this morning was 98.4 04/05/2019 patient is currently on Unasyn day #2, and also Diflucan's IV day #1 awaiting pathology from surgical procedure 04/06/2019 his current antibiotics include Meropenem every 8 hours. Patient also continues Diflucan's IV. White count today is 11,200. (3) Leukocytosis Qualifiers: Leukocytosis type: other Qualified Code(s): D72.828 - Other elevated white blood cell count Is this a current diagnosis for this admission?: Yes Plan: 04/01/2019 stated earlier her white count is come down and is now normal 9.9 patient is currently on Levaquin and remains afebrile 04/02/2019 white count is normal, on IV Levaquin day 4 for Pseudomonas infected sacral decubitus. 04/05/2019 count today is 12,400 H&H is stable 8.7 27.9 patient is now on Unasyn IV and Diflucan's IV 04/06/2019 white count today is 11,200. Patient is on meropenem and Diflucan's (4) Type 2 diabetes mellitus Qualifiers: Diabetes mellitus vermin exterminator insulin use: without prison use Is this a current diagnosis for this admission?: Yes Plan: The patient's regimen on hold, Humalog sliding scale as needed, no hypoglycemic events 04/06/2019 Leukos today is 140 patient appears to be well-controlled she is currently just on a sliding scale hemoglobin A1c is approximately 7. Will start patient back on her metformin thousand milligrams twice daily (5) Stage IV pressure ulcer of sacral region Is this a current diagnosis for this admission?: Yes Plan: 04/06/2019 patient currently being seen and having procedures done by general surgery patient has a wound VAC in place patient currently on IV antibiotics meropenem. Patient however remains afebrile and does not appear to be septic - Time Time Spent with patient: 25-34 minutes
[2019-04-06] MEDS: MEROPENEM 1 GM in NORMAL SALINE 50 ML IV SCH ×2 (13:48→21:18)
[2019-04-06] MEDS: METFORMIN HCL 500 MG TABLET PO SCH (16:37)
--- NOTE | 2019-04-06 18:33 | EKG REPORT ---
SEVERITY:- ABNORMAL ECG - SINUS RHYTHM NONSPECIFIC INTRAVENTRICULAR CONDUCTION DELAY PROBABLE LEFT VENTRICULAR HYPERTROPHY : Confirmed by: Efraín Deluca 06-Apr-2019 18:32:53
[2019-04-06] MEDS: OXYCODONE-ACETAMINOPHEN 5-325 MG TABLET PO PRN (19:27)
[2019-04-06] MEDS: MIRTAZAPINE 15 MG TABLET PO SCH (21:18)
[2019-04-07] MEDS: INSULIN LISPRO 100 UNIT/ML 3 ML VIAL SUBCUT SCH ×5 (02:14→21:39)
[2019-04-07] MEDS: MEROPENEM 1 GM in NORMAL SALINE 50 ML IV SCH ×3 (06:45→21:37)
[2019-04-07] MEDS: NORMAL SALINE 1000 ML 1,000 ML IV PRN ×3 (07:27→21:38)
[2019-04-07 08:09] LABS: ABSOLUTE BASOPHILS # (AUTO) 0.1 10^3/uL (0.0-0.2); ABSOLUTE EOSINOPHILS # (AUTO) 0.2 10^3/uL (0.0-0.6); ABSOLUTE LYMPHOCYTES (AUTO) 2.5 10^3/uL (0.5-4.7); ABSOLUTE MONOCYTES (AUTO) 1.1 10^3/uL (0.1-1.4); ABSOLUTE NEUT (AUTO) 9.1 10^3/uL (1.7-8.2); BASOPHILS % (AUTO) 0.4 % (0-2); EOSINOPHILS % (AUTO) 1.3 % (0-6); HEMOGLOBIN 8.6 g/dL (12.0-15.5); LYMPHOCYTES % (AUTO) 19.3 % (13-45); MEAN CORPUSCULAR HEMOGLOBIN 23.8 pg (27.0-33.4); MEAN CORPUSCULAR VOLUME 72 fl (80-97); MONOCYTES % (AUTO) 8.7 % (3-13); PLATELET COUNT 495 10^3/uL (150-450); RED BLOOD COUNT 3.61 10^6/uL (3.72-5.28); RED CELL DISTRIBUTION WIDTH 17.9 % (11.5-14.0); SEGMENTED NEUTROPHILS % (AUTO) 70.3 % (42-78); TOTAL CELLS COUNTED % (AUTO) 100 %; WHITE BLOOD COUNT 12.9 10^3/uL (4.0-10.5)
[2019-04-07] MEDS: METFORMIN HCL 500 MG TABLET PO SCH ×2 (08:36→16:49)
[2019-04-07] MEDS: CHOLECALCIFEROL (D3) 1,000 UNIT (25 MCG) TABLET PO SCH (09:55)
[2019-04-07] MEDS: MULTIVITAMIN TABLET PO SCH (09:55)
[2019-04-07] MEDS: FLUCONAZOLE 200 MG/NS RTU 200 MG/100 ML RTUPB IV SCH (09:55)
[2019-04-07] MEDS: FENTANYL 75 MCG/HR PATCH.TD72 TD SCH (09:56)
[2019-04-07] MEDS: MEGESTROL ACETATE SUSP 400 MG/10 ML UDCUP PO SCH (09:57)
[2019-04-07] MEDS: NYSTATIN CREAM 15 GM TP SCH ×2 (09:58→18:11)
--- NOTE | 2019-04-07 13:27 | PDOC PROGRESS REPORT ---
Subjective Progress Note for:: 04/06/19 Subjective:: The patient has no complaints of with exception of back pain Reason For Visit: INFECTED SACRAL DECUBITUS ULCER Physical Exam Vital Signs: Temp Pulse Resp BP Pulse Ox 98.2 F 78 16 112/56 L 100 04/06/19 07:43 04/06/19 07:43 04/06/19 07:43 04/06/19 07:43 04/06/19 07:43 Intake & Output 04/05/19 04/06/19 04/07/19 06:59 06:59 06:59 Intake Total 4480 3050 1050 Output Total 2845 3275 Balance 1635 -225 1050 Weight 88.4 kg 85.6 kg General appearance: PRESENT: no acute distress Results Laboratory Results: 04/06/19 05:47 04/05/19 05:57 04/06/19 05:47 WBC 11.2 H RBC 3.45 L Hgb 8.2 L Hct 25.2 L MCV 73 L MCH 23.8 L MCHC 32.6 RDW 17.8 H Plt Count 445 Seg Neutrophils % 60.9 03/23/19 03/23/19 03/25/19 10:35 10:35 06:43 Creatine Kinase 160 H 177 H CK-MB (CK-2) 0.77 Troponin I 0.016 03/25/19 06:43 Creatine Kinase CK-MB (CK-2) 0.65 Troponin I 0.029 Impressions: Femur X-Ray 03/23/19 10:12 IMPRESSION: NO RADIOGRAPHIC EVIDENCE OF ACUTE INJURY. Hip/Pelvis X-Ray 03/23/19 10:12 IMPRESSION: No fracture. Chest X-Ray 03/23/19 10:13 IMPRESSION: CARDIAC ENLARGEMENT WITHOUT FAILURE. Lumbar Spine X-Ray 03/23/19 10:13 IMPRESSION: SPONDYLOSIS WITHOUT BONE LESION OR FRACTURE. Breast Ultrasound 04/01/19 00:00 IMPRESSION: Possible hematoma given reported history of falling and decrease in size of palpable abnormality. However correlation mammography is recommended. Assessment & Plan - Diagnosis (1) Infected decubitus ulcer Qualifiers: Pressure injury stage: stage 2 Qualified Code(s): L89.92 - Pressure ulcer of unspecified site, stage 2; L08.9 - Local infection of the skin and subcutaneous tissue, unspecified Is this a current diagnosis for this admission?: Yes - Plan Summary Plan Summary: Assessment: Postop day #2 following deep full-thickness debridement down to muscle and bone of the right gluteus decubitus grade 3 Previous cultures from the head is significant for multiple organisms (enterococcus, Serratia marcescens, and Pseudomonas: Sensitive to multiple antibiotics Patient currently on Unasyn Plan: Discontinue Unasyn Start meropenem 1 g IV every 8 WoundVAC replaced today at bedside
--- NOTE | 2019-04-07 13:31 | PDOC PROGRESS REPORT ---
Subjective Progress Note for:: 04/07/19 Subjective:: Patient alert, responsive, with good appetite Reason For Visit: INFECTED SACRAL DECUBITUS ULCER Physical Exam Vital Signs: Temp Pulse Resp BP Pulse Ox 98.7 F 80 12 138/57 H 100 04/07/19 08:23 04/07/19 08:23 04/07/19 08:23 04/07/19 08:23 04/07/19 08:23 Intake & Output 04/06/19 04/07/19 04/08/19 06:59 06:59 06:59 Intake Total 3050 3270 668 Output Total 3275 3200 Balance -225 70 668 Weight 85.6 kg 84.5 kg General appearance: PRESENT: no acute distress Gentrourinary exam: PRESENT: other - Presence of WoundVAC covering the entire right buttock Results Laboratory Results: 04/07/19 07:40 04/05/19 05:57 04/07/19 07:40 WBC 12.9 H RBC 3.61 L Hgb 8.6 L Hct 26.0 L MCV 72 L MCH 23.8 L MCHC 33.0 RDW 17.9 H Plt Count 495 H Seg Neutrophils % 70.3 03/23/19 03/23/19 03/25/19 10:35 10:35 06:43 Creatine Kinase 160 H 177 H CK-MB (CK-2) 0.77 Troponin I 0.016 03/25/19 06:43 Creatine Kinase CK-MB (CK-2) 0.65 Troponin I 0.029 Impressions: Femur X-Ray 03/23/19 10:12 IMPRESSION: NO RADIOGRAPHIC EVIDENCE OF ACUTE INJURY. Hip/Pelvis X-Ray 03/23/19 10:12 IMPRESSION: No fracture. Chest X-Ray 03/23/19 10:13 IMPRESSION: CARDIAC ENLARGEMENT WITHOUT FAILURE. Lumbar Spine X-Ray 03/23/19 10:13 IMPRESSION: SPONDYLOSIS WITHOUT BONE LESION OR FRACTURE. Breast Ultrasound 04/01/19 00:00 IMPRESSION: Possible hematoma given reported history of falling and decrease in size of palpable abnormality. However correlation mammography is recommended. Assessment & Plan - Diagnosis (1) Infected decubitus ulcer Qualifiers: Pressure injury stage: stage 2 Qualified Code(s): L89.92 - Pressure ulcer of unspecified site, stage 2; L08.9 - Local infection of the skin and subcutaneous tissue, unspecified Is this a current diagnosis for this admission?: Yes - Plan Summary Plan Summary: Assessment: Severe arthritis Postoperative day #3 following debridement of grade 3 right buttock pressure sore The previous site examined yesterday, it appeared to be granulating without evidence of infection Wound VAC replaced yesterday April 06, 2019 Meropenem (1 g every 8) started yesterday because of multiple organisms cultivat ed from the debrided pressures sore site Patient appears to have improved following the above measures Patient started on IV meropenem plan: Continue meropenem Wound VAC to be replaced tomorrow We will reexamine the wound tomorrow at the time of wound VAC replacement
--- NOTE | 2019-04-07 14:42 | PDOC PROGRESS REPORT ---
Subjective Progress Note for:: 04/07/19 Subjective:: Patient is admitted on 03/23 for back and leg pain, the result of infected sacral decubitus. patient is growing out Pseudomonas and is currently on Levaquin. The nurses also told me that the patient has a mass on her left breast. After investigating this patient will need further diagnostic studies to rule out cancer. Patient states she is never in her life had a mammogram and she is 83 years old. Patient states that this is been here at least 2 months and she attributed to a fall January. Patient states that prior to coming to the hospital she was using a walker and ambulating. Patient's only complaint today is "my bones are aching". Patient states that she has arthritis.. 04/02/2019 patient is admitted for infected sacral decubitus. Patient states that prior to being admitted to the hospital she had been in a wheelchair for 3 to 4 weeks nonambulatory in rehab. She states prior to that however she was using a walker and walking by herself since being in the hospital she has not been out of bed although she has been working with PT in bed but I told patient the goal is to get her to transfer weight from the bed to a chair with assistance The report from the ultrasound of the left breast is pending 04/05/2019 patient has been seen by surgery and in fact had procedures done to debride and excise the sacral decubitus. Patient's white count remains stable, she remains afebrile and her blood pressure is well controlled. Glucose is well controlled as well approximately 140 04/06/2019 patient is going treatment for sacral decubitus and deconditioning 04/07/2019 patient was started on meropenem yesterday by general surgery multiple organisms in the sacral decubitus Reason For Visit: INFECTED SACRAL DECUBITUS ULCER Physical Exam Vital Signs: Temp Pulse Resp BP Pulse Ox 99.0 F 77 15 134/50 H 100 04/07/19 11:27 04/07/19 11:27 04/07/19 11:27 04/07/19 11:27 04/07/19 11:27 Intake & Output 04/06/19 04/07/19 04/08/19 06:59 06:59 06:59 Intake Total 3050 3270 768 Output Total 3275 3200 Balance -225 70 768 Weight 85.6 kg 84.5 kg General appearance: PRESENT: no acute distress, other - She reports she is feeling better Respiratory exam: PRESENT: clear to auscultation trei. ABSENT: rales, rhonchi, wheezes Cardiovascular exam: PRESENT: RRR. ABSENT: diastolic murmur, rubs, systolic murmur Neurological exam: PRESENT: alert, awake, oriented to person, oriented to place, oriented to time, oriented to situation, CN II-XII grossly intact. ABSENT: motor sensory deficit Psychiatric exam: PRESENT: appropriate affect, normal mood. ABSENT: homicidal ideation, suicidal ideation Results Laboratory Results: 04/07/19 07:40 04/05/19 05:57 04/07/19 07:40 WBC 12.9 H RBC 3.61 L Hgb 8.6 L Hct 26.0 L MCV 72 L MCH 23.8 L MCHC 33.0 RDW 17.9 H Plt Count 495 H Seg Neutrophils % 70.3 03/23/19 03/23/19 03/25/19 10:35 10:35 06:43 Creatine Kinase 160 H 177 H CK-MB (CK-2) 0.77 Troponin I 0.016 03/25/19 06:43 Creatine Kinase CK-MB (CK-2) 0.65 Troponin I 0.029 Impressions: Femur X-Ray 03/23/19 10:12 IMPRESSION: NO RADIOGRAPHIC EVIDENCE OF ACUTE INJURY. Hip/Pelvis X-Ray 03/23/19 10:12 IMPRESSION: No fracture. Chest X-Ray 03/23/19 10:13 IMPRESSION: CARDIAC ENLARGEMENT WITHOUT FAILURE. Lumbar Spine X-Ray 03/23/19 10:13 IMPRESSION: SPONDYLOSIS WITHOUT BONE LESION OR FRACTURE. Breast Ultrasound 04/01/19 00:00 IMPRESSION: Possible hematoma given reported history of falling and decrease in size of palpable abnormality. However correlation mammography is recommended. Assessment and Plan - Diagnosis (1) Breast mass, left Is this a current diagnosis for this admission?: No (2) Bacteremia due to Pseudomonas Is this a current diagnosis for this admission?: Yes Plan: The patient had multiple blood cultures positive for pseudomonas aeruginosa. This was also isolated in the decubitus ulcer and therefore likely was the point of origin. She is on levofloxacin scheduled through April 06. Repeat blood cultures so far negative. 04/01/2019 patient has had blood cultures that grew out Pseudomonas ported on 03/23/2019. Blood cultures after that reported on 03/27/2019 showed no growth in 5 days. Patient is currently on Levaquin until 04/06/2019. This appears to be day 3 of the Levaquin. On admission she was initially put on Unasyn. On 03/23 her white count was 20,900 today her white count is 9.9. Patient remains afebrile temperature 98.6 blood pressure 138/55, O2 sat 99% on room. 04/02/2019 white count from yesterday continues to slowly improve it is 9.9, H&H is stable. Patient is on day 4 of IV Levaquin. His temperature this morning was 98.4 04/05/2019 patient is currently on Unasyn day #2, and also Diflucan's IV day #1 awaiting pathology from surgical procedure 04/06/2019 his current antibiotics include Meropenem every 8 hours. Patient also continues Diflucan's IV. White count today is 11,200. 04/07/2019 patient's white count remained stable 12.9 has not fluctuated hardly at all over the last week. No recent wound culture results are back from microbiology yet (3) Leukocytosis Qualifiers: Leukocytosis type: other Qualified Code(s): D72.828 - Other elevated white blood cell count Is this a current diagnosis for this admission?: Yes Plan: 04/01/2019 stated earlier her white count is come down and is now normal 9.9 patient is currently on Levaquin and remains afebrile 04/02/2019 white count is normal, on IV Levaquin day 4 for Pseudomonas infected sacral decubitus. 04/05/2019 count today is 12,400 H&H is stable 8.7 27.9 patient is now on Unasyn IV and Diflucan's IV 04/06/2019 white count today is 11,200. Patient is on meropenem and Diflucan's 04/07/2019 WBC stable (4) Type 2 diabetes mellitus Qualifiers: Diabetes mellitus halfway insulin use: without halfway use Is this a current diagnosis for this admission?: Yes Plan: The patient's regimen on hold, Humalog sliding scale as needed, no hypoglycemic events 04/06/2019 Leukos today is 140 patient appears to be well-controlled she is currently just on a sliding scale hemoglobin A1c is approximately 7. Will start patient back on her metformin thousand milligrams twice daily 04/07/2019 patient's serum glucose is running between 120 and 140 (5) Stage IV pressure ulcer of sacral region Is this a current diagnosis for this admission?: Yes Plan: 04/06/2019 patient currently being seen and having procedures done by general surgery patient has a wound VAC in place patient currently on IV antibiotics meropenem. Patient however remains afebrile and does not appear to be septic 04/07/2019 general surgery is debriding the wound and using a wound VAC. Patient's white count remains stable and she is afebrile hemodynamically stable. - Time Time Spent with patient: 25-34 minutes
[2019-04-07] MEDS: OXYCODONE-ACETAMINOPHEN 5-325 MG TABLET PO PRN (21:31)
[2019-04-07] MEDS: MIRTAZAPINE 15 MG TABLET PO SCH (21:31)
[2019-04-08] MEDS: OXYCODONE-ACETAMINOPHEN 5-325 MG TABLET PO PRN ×2 (05:14→21:09)
[2019-04-08] MEDS: MEROPENEM 1 GM in NORMAL SALINE 50 ML IV SCH ×3 (05:14→21:10)
[2019-04-08 06:00] LABS: ABSOLUTE BASOPHILS # (AUTO) 0.1 10^3/uL (0.0-0.2); ABSOLUTE EOSINOPHILS # (AUTO) 0.2 10^3/uL (0.0-0.6); ABSOLUTE LYMPHOCYTES (AUTO) 2.8 10^3/uL (0.5-4.7); ABSOLUTE MONOCYTES (AUTO) 1.2 10^3/uL (0.1-1.4); ABSOLUTE NEUT (AUTO) 7.8 10^3/uL (1.7-8.2); BASOPHILS % (AUTO) 1.1 % (0-2); EOSINOPHILS % (AUTO) 1.9 % (0-6); HEMATOCRIT 30.1 % (36.0-47.0); HEMOGLOBIN 9.6 g/dL (12.0-15.5); LYMPHOCYTES % (AUTO) 23.3 % (13-45); MEAN CORPUSCULAR HEMOGLOBIN 23.2 pg (27.0-33.4); MEAN CORPUSCULAR VOLUME 72 fl (80-97); MONOCYTES % (AUTO) 9.6 % (3-13); PLATELET COUNT 515 10^3/uL (150-450); RED BLOOD COUNT 4.16 10^6/uL (3.72-5.28); RED CELL DISTRIBUTION WIDTH 18.3 % (11.5-14.0); SEGMENTED NEUTROPHILS % (AUTO) 64.1 % (42-78); TOTAL CELLS COUNTED % (AUTO) 100 %; WHITE BLOOD COUNT 12.2 10^3/uL (4.0-10.5)
[2019-04-08] MEDS: METFORMIN HCL 500 MG TABLET PO SCH ×2 (08:21→16:28)
[2019-04-08] MEDS: INSULIN LISPRO 100 UNIT/ML 3 ML VIAL SUBCUT SCH ×4 (08:21→21:18)
[2019-04-08] MEDS: NORMAL SALINE 1000 ML 1,000 ML IV PRN ×2 (09:09→19:50)
[2019-04-08] MEDS: CHOLECALCIFEROL (D3) 1,000 UNIT (25 MCG) TABLET PO SCH (09:10)
[2019-04-08] MEDS: FLUCONAZOLE 200 MG/NS RTU 200 MG/100 ML RTUPB IV SCH (09:10)
[2019-04-08] MEDS: MULTIVITAMIN TABLET PO SCH (09:10)
[2019-04-08] MEDS: NYSTATIN CREAM 15 GM TP SCH ×2 (09:10→17:34)
[2019-04-08] MEDS: MEGESTROL ACETATE SUSP 400 MG/10 ML UDCUP PO SCH (09:10)
[2019-04-08] MEDS: HYDROMORPHONE HCL INJ/PF 2 MG/ML AMPULE IV PRN (19:45)
--- NOTE | 2019-04-08 20:43 | PDOC PROGRESS REPORT ---
Subjective Progress Note for:: 04/08/19 Subjective:: The patient was admitted 03/23/2019 for back and leg pain, found to have an infected sacral decubitus ulcer, now status post surgical debridement. Patient did grow Pseudomonas in her blood cultures, repeat blood cultures now clear. Patient was briefly made comfort care measures only, however, this may have been due to a misunderstanding as the patient's family members quickly rescinded this and she has now a DO NOT RESUSCITATE but with request for medical interventions. The patient is nonambulatory at baseline; was bedbound for approximately 3 to 4 weeks prior to arrival. Patient was seen on afternoon rounds. She was found sitting upright in bed, comfortably on room air. She is awake and alert; oriented to self, conversational and socially appropriate. She tells me that she is feeling well today and surprisingly denies pain. She is noted to be feeding herself supper. She has no questions or concerns at this time and denies fever, chills, chest pain, difficulty breathing, abdominal pain, nausea She has no questions or concerns at this time. No family members were present during the time of her assessment. No concerns per nursing.. Reason For Visit: INFECTED SACRAL DECUBITUS ULCER Physical Exam Vital Signs: Temp Pulse Resp BP Pulse Ox 97.6 F 78 16 117/54 L 99 04/08/19 19:46 04/08/19 19:46 04/08/19 19:46 04/08/19 19:46 04/08/19 19:46 Intake & Output 04/07/19 04/08/19 04/09/19 06:59 06:59 06:59 Intake Total 3270 2630 2278 Output Total 3200 1950 1200 Balance 70 680 1078 Weight 84.5 kg 83.8 kg General appearance: PRESENT: no acute distress, cooperative, obese, well- developed, well-nourished Head exam: PRESENT: atraumatic, normocephalic Eye exam: PRESENT: conjunctiva pink, EOMI, PERRLA. ABSENT: scleral icterus Ear exam: PRESENT: normal external ear exam Mouth exam: PRESENT: moist, tongue midline Neck exam: ABSENT: carotid bruit, JVD, lymphadenopathy, thyromegaly Respiratory exam: PRESENT: clear to auscultation teri, symmetrical, unlabored. ABSENT: rales, rhonchi, wheezes Cardiovascular exam: PRESENT: RRR. ABSENT: diastolic murmur, rubs, systolic murmur Pulses: PRESENT: normal dorsalis pedis pul Vascular exam: PRESENT: normal capillary refill GI/Abdominal exam: PRESENT: normal bowel sounds, soft. ABSENT: distended, g uarding, mass, organolmegaly, rebound, tenderness Rectal exam: PRESENT: deferred Extremities exam: PRESENT: full ROM. ABSENT: calf tenderness, clubbing, pedal edema Neurological exam: PRESENT: alert, awake, oriented to person, oriented to place, oriented to time, oriented to situation, CN II-XII grossly intact. ABSENT: mo tor sensory deficit Psychiatric exam: PRESENT: appropriate affect, normal mood. ABSENT: homicidal ideation, suicidal ideation Skin exam: PRESENT: dry, warm. ABSENT: cyanosis, intact - Wound VAC to sacral, rash Results Laboratory Results: 04/08/19 05:49 04/05/19 05:57 04/08/19 05:49 WBC 12.2 H RBC 4.16 Hgb 9.6 L Hct 30.1 L MCV 72 L MCH 23.2 L MCHC 32.0 RDW 18.3 H Plt Count 515 H Seg Neutrophils % 64.1 03/23/19 03/23/19 03/25/19 10:35 10:35 06:43 Creatine Kinase 160 H 177 H CK-MB (CK-2) 0.77 Troponin I 0.016 03/25/19 06:43 Creatine Kinase CK-MB (CK-2) 0.65 Troponin I 0.029 Impressions: Femur X-Ray 03/23/19 10:12 IMPRESSION: NO RADIOGRAPHIC EVIDENCE OF ACUTE INJURY. Hip/Pelvis X-Ray 03/23/19 10:12 IMPRESSION: No fracture. Chest X-Ray 03/23/19 10:13 IMPRESSION: CARDIAC ENLARGEMENT WITHOUT FAILURE. Lumbar Spine X-Ray 03/23/19 10:13 IMPRESSION: SPONDYLOSIS WITHOUT BONE LESION OR FRACTURE. Breast Ultrasound 04/01/19 00:00 IMPRESSION: Possible hematoma given reported history of falling and decrease in size of palpable abnormality. However correlation mammography is recommended. Assessment and Plan - Diagnosis (1) Stage IV pressure ulcer of sacral region Is this a current diagnosis for this admission?: Yes Plan: Now status post surgical debridement; wound VAC in place. Repeat blood cultures (03/27/2019) have no growth at 5 days. Wound culture demonstrated enterococcus faecalis, Serratia [place], and Pseudomonas. Continue IV meropenem and IV Diflucan per surgery's recommendations. Wound care per their expertise. (2) Bacteremia due to Pseudomonas Is this a current diagnosis for this admission?: Yes Plan: Resolved. The patient had multiple blood cultures positive for pseudomonas aeruginosa. This was also isolated in the decubitus ulcer and therefore likely was the point of origin. Repeat blood cultures negative. Patient received 4 days IV Levaquin. Then started on IV Unasyn and Diflucan; following surgical intervention, Unasyn was discontinued and patient was started on meropenem. Continues on IV meropenem; #2. We will ask infectious disease to make recommendations on length of therapy. (3) Coronary artery disease Qualifiers: Coronary Disease-Associated Artery/Lesion type: [place] artery Is this a current diagnosis for this admission?: Yes Plan: No complaints of chest pain. Continue aspirin and statin therapy. (4) Hypertension Qualifiers: Hypertension type: essential hypertension Qualified Code(s): I10 - Essential (primary) hypertension Is this a current diagnosis for this admission?: Yes Plan: The patient's antihypertensive medications were discontinued when she was made comfort care; it does not appear that these were resumed when comfort care measures were discontinued. However, the patient does continue to remain normotensive. We will continue to monitor blood pressures and heart rate by telemetry to ascertain whether or not she would benefit from resumption of her carvedilol, Valsartan, and or furosemide. (5) Leukocytosis Qualifiers: Leukocytosis type: other Qualified Code(s): D72.828 - Other elevated white blood cell count Is this a current diagnosis for this admission?: Yes Plan: Overall unchanged; 9.9-> 10.9->12.4-> 11.2-> 12.9-> 12.2 Patient remains afebrile. Secondary to stage IV decubitus ulcer and Pseudomonas bacteremia. Cultures and antibiotics as above. (6) Type 2 diabetes mellitus Qualifiers: Diabetes mellitus terminal clerk insulin use: without nursing home use Is this a current diagnosis for this admission?: Yes Plan: A1c 6.9%. Consistent carb diet. Accu-Cheks before meals and at bedtime with sliding scale insulin. Metformin 1000 mg twice daily with meals. Hypoglycemia protocol in place. (7) A-fib Qualifiers: Atrial fibrillation type: chronic Qualified Code(s): I48.2 - Chronic atrial fibrillation Is this a current diagnosis for this admission?: Yes Plan: Patient no longer comfort care measures only. Resume home dose amiodarone. Not a candidate for chronic anticoagulation at this time. (8) Breast mass, left Is this a current diagnosis for this admission?: No Plan: Asymptomatic, Patient states mass present since January 2019 and was told evaluation suggested calcified hematoma. Appears to be a hematoma by ultrasound. Patient will have a mammogram scheduled as an outpatient - Time Time Spent with patient: 35 or more minutes Medications reviewed and adjusted accordingly: Yes Anticipated discharge: SNF - Bed offer at [facility]: Other - Will need to obtain surgical clearance and infectious disease recommendations prior to discharge.
--- NOTE | 2019-04-08 20:44 | Progress Note Acknowledgement ---
Progress Note Acknowledgement Progess Note Acknowledgement: I, the undersigned member of the medical staff with appropriate privileges and with supervisory authority over Carolina Ko, a [facility] practice allied health professional, acknowledge that I have reviewed the progress notes entered on this patient, and in my professional judgment believe that the assessment made and/or any care evidenced was appropriate
[2019-04-08] MEDS: MIRTAZAPINE 15 MG TABLET PO SCH (21:08)
--- NOTE | 2019-04-08 21:17 | PDOC PROGRESS REPORT ---
Subjective Progress Note for:: 04/08/19 Subjective:: Pains at the operative site-sacral area Reason For Visit: INFECTED SACRAL DECUBITUS ULCER Physical Exam Vital Signs: Temp Pulse Resp BP Pulse Ox 97.6 F 78 16 117/54 L 99 04/08/19 19:46 04/08/19 19:46 04/08/19 19:46 04/08/19 19:46 04/08/19 19:46 Intake & Output 04/07/19 04/08/19 04/09/19 06:59 06:59 06:59 Intake Total 3270 2630 2278 Output Total 3200 1950 1200 Balance 70 680 1078 Weight 84.5 kg 83.8 kg Exam: Wound vac removed. Has a large wound at the sacral area that looks clean. Results Laboratory Results: 04/08/19 05:49 04/05/19 05:57 04/08/19 05:49 WBC 12.2 H RBC 4.16 Hgb 9.6 L Hct 30.1 L MCV 72 L MCH 23.2 L MCHC 32.0 RDW 18.3 H Plt Count 515 H Seg Neutrophils % 64.1 03/23/19 03/23/19 03/25/19 10:35 10:35 06:43 Creatine Kinase 160 H 177 H CK-MB (CK-2) 0.77 Troponin I 0.016 03/25/19 06:43 Creatine Kinase CK-MB (CK-2) 0.65 Troponin I 0.029 Impressions: Femur X-Ray 03/23/19 10:12 IMPRESSION: NO RADIOGRAPHIC EVIDENCE OF ACUTE INJURY. Hip/Pelvis X-Ray 03/23/19 10:12 IMPRESSION: No fracture. Chest X-Ray 03/23/19 10:13 IMPRESSION: CARDIAC ENLARGEMENT WITHOUT FAILURE. Lumbar Spine X-Ray 03/23/19 10:13 IMPRESSION: SPONDYLOSIS WITHOUT BONE LESION OR FRACTURE. Breast Ultrasound 04/01/19 00:00 IMPRESSION: Possible hematoma given reported history of falling and decrease in size of palpable abnormality. However correlation mammography is recommended. Assessment & Plan - Time Time Spent with patient: 15-24 minutes - Inpatient Certification Medical Necessity: Need for IV Antibiotics, Other - wound vac placement with wound evaluation - Plan Summary Plan Summary: Wound vac replaced Spoke to patient and grandson the importance of good nutrition to help heal this large wound. Explained to them the possible need of diverting colostomy if the wound gets bigger and easily contaminated by feces. Ordered Ensure supplement since patient apparently ate 1/3 of her dinner today according to the grandson Continue IV antibiotics
[2019-04-08] MEDS: ATORVASTATIN CALCIUM 20 MG TABLET PO SCH (21:18)
[2019-04-09] MEDS: MEROPENEM 1 GM in NORMAL SALINE 50 ML IV SCH (05:00)
[2019-04-09] MEDS: NORMAL SALINE 1000 ML 1,000 ML IV PRN (06:13)
[2019-04-09] MEDS: INSULIN LISPRO 100 UNIT/ML 3 ML VIAL SUBCUT SCH ×4 (08:30→21:32)
[2019-04-09] MEDS: METFORMIN HCL 500 MG TABLET PO SCH ×2 (08:35→18:57)
[2019-04-09 08:47] LABS: ABSOLUTE BASOPHILS # (AUTO) 0.1 10^3/uL (0.0-0.2); ABSOLUTE EOSINOPHILS # (AUTO) 0.4 10^3/uL (0.0-0.6); ABSOLUTE LYMPHOCYTES (AUTO) 2.5 10^3/uL (0.5-4.7); ABSOLUTE MONOCYTES (AUTO) 1.4 10^3/uL (0.1-1.4); ABSOLUTE NEUT (AUTO) 11.2 10^3/uL (1.7-8.2); BASOPHILS % (AUTO) 0.6 % (0-2); EOSINOPHILS % (AUTO) 2.4 % (0-6); HEMATOCRIT 29.5 % (36.0-47.0); HEMOGLOBIN 9.3 g/dL (12.0-15.5); MEAN CORPUSCULAR HEMOGLOBIN 23.1 pg (27.0-33.4); MEAN CORPUSCULAR HGB CONC 31.4 g/dL (32.0-36.0); MEAN CORPUSCULAR VOLUME 74 fl (80-97); PLATELET COUNT 507 10^3/uL (150-450); RED BLOOD COUNT 4.01 10^6/uL (3.72-5.28); RED CELL DISTRIBUTION WIDTH 18.3 % (11.5-14.0); TOTAL CELLS COUNTED % (AUTO) 100 %; WHITE BLOOD COUNT 15.6 10^3/uL (4.0-10.5)
[2019-04-09 09:10] LABS: ANION GAP 8 (5-19); BLOOD UREA NITROGEN 11 mg/dL (7-20); CALCIUM 9.2 mg/dL (8.4-10.2); CARBON DIOXIDE 24 mmol/L (22-30); CHLORIDE 104 mmol/L (98-107); GLUCOSE 112 mg/dL (75-110); POTASSIUM 4.2 mmol/L (3.6-5.0)
[2019-04-09] MEDS ORDERED: CIPROFLOXACIN HCL 500 MG TABLET PO SCH (10:00)
[2019-04-09] MEDS: CHOLECALCIFEROL (D3) 1,000 UNIT (25 MCG) TABLET PO SCH (10:14)
[2019-04-09] MEDS: AMIODARONE HCL 200 MG TABLET PO SCH (10:15)
[2019-04-09] MEDS: ASPIRIN 81 MG TABLET, CHEWABLE PO SCH (10:15)
[2019-04-09] MEDS: MULTIVITAMIN TABLET PO SCH (10:15)
[2019-04-09] MEDS: NYSTATIN CREAM 15 GM TP SCH ×2 (10:17→20:36)
[2019-04-09] MEDS: MEGESTROL ACETATE SUSP 400 MG/10 ML UDCUP PO SCH (10:20)
[2019-04-09] MEDS ORDERED: PENICILLIN V POTASSIUM 250 MG TABLET PO SCH (12:00)
--- NOTE | 2019-04-09 16:13 | Progress Note ---
Provider Note Provider Note: ID Consult Note Asked to review patient's chart. Pt not seen or examined. Ms. Robles is a 83 year old woman with PMH including obesity, AF on amiodarone, HTN, CAD, DM, and recent overall decline in health leading to bedbound status for 3-4 weeks prior to admission to [facility] on 03/23/19 with complaints of pain in her back and thighs; she was found to have fever and leukocytosis due to Pseudomonas aeruginosa bacteremia secondary to an infected large R gluteal decubitus ulcer with tissue necrosis and surrounding erythema. Debridement was performed on 04/04/19 down to muscle and bone. The specimen submitted to pathology from the OR was from the debrided soft tissue, showing nonviable skin and subcutaneous tissue with acute inflammation. A superficial culture from this site on 03/23/19 grew Enterococcus, Serratia and Pseudomonas. She was treated empirically with Zosyn since 03/23, then changed to Levaquin on 03/30, and most recently meorpenem from 04/06 to present. When most recently examiend by surgery, the wound site was noted to have granulation tissue without evidence of infection. Repeat blood cultures are negative. Pt is afebrile. WBC count has decreased from 20k initially to 12-15k range. Per provider report from yesterday, the patient was oriented, eating, and had no complaints. Impression/Recommendations Pseudomonas aeruginosa bacteremia secondary to infected gluteal decubitus ulcer, s/p debridement - S/p debridement. On effective antimicrobial therapy, albeit broader than necessary. Clinically improved. - Choice of agent: * The Pseudomonas was susceptible to all agents tested. However, earlier in her course she had prolonged QTc in the 530 range. Levaquin prolongs QTc more than Cipro, but with this degree of QTc prolongation, it seems prudent to avoid a fluoroquinolone if possible. * Pt does not need meropenem per se. Suggest switch to Zosyn. Superficial wound cultures provide suboptimal information to base treatment on, but, nonetheless, all organisms cultured from the superficial swab were susceptible to Zosyn. From the standpoint of trying to use antibiotics judiciously and reserve broader agents for when required, switching from meropenem to Zosyn would be preferrable. If given as an extended infusion (over 4 hours), Zosyn can be administered at q8h instead of q6h. Zosyn dose should be 3.375 mg as long as CrCl >20. If Zosyn cannot be administered as an extended infusion, then it would have to be dosed every 6h. - Duration of treatment for the bacteremia: * From the standpoint of duration of treatment for Pseudomonas aeruginosa bloodstream infection, traditionally longer durations of around 14 days have been recommended. There is a newer study that suggests potentially shorter could be sufficient in some patients, as has been the trend with studies examinating duration of therapy for other Gram negative bloodstream infections. Regardless, she has already received this length of therapy and had improvement. - Duration of treatment regarding the wound infection: * If limited to soft tissue infection, typically 1-2 weeks duration is suff icient. Would need to gauge based on appearance of the wound. Would not use WBC count normalization as an end point considering that it is nonspecific and can be influenced by comorbidities also. Typically 4-6 weeks is recommended for treatment of osteomyelitis, although, if there is suspected to be early bone involvement involving only the cortex, some experts suggest a short course of 2 weeks for pressure-ulcer associated osteomyelitis. The fact that the patient's ulcer required debridement down to the level of the bone certainly suggests she is at risk for early osteomyelitis, and a case could be made for her to continue for another 10 days or so (she is already 2.5 weeks on effective antibiotics) or 4 weeks in total. If the patient and her family are agreeable to that plan, then the end date would be 04/20. If she requires placement of a PICC line, it should be removed after she has completed treatment. Would suggest CBC and CMP weekly while on Zosyn. - Of course, antibiotics only help to eradicate any infection that is superimposed. The wound will take much longer to heal, if it is going to, with correction of predisposing risk factors (e.g. pressure off-loading, avoiding soiling/contamination of the wound, nutritional support, possibly a flap to cover soft tissue defect, etc; sometimes this is not possible or practical.) Santo Burleson MD [facility] Infectious Diseases pager [phone]
--- NOTE | 2019-04-09 18:11 | PDOC PROGRESS REPORT ---
Subjective Progress Note for:: 04/09/19 Subjective:: The patient was admitted 03/23/2019 for back and leg pain, found to have an infected sacral decubitus ulcer, now status post surgical debridement. Patient did grow Pseudomonas in her blood cultures, repeat blood cultures now clear. Patient was briefly made comfort care measures only, however, this may have been due to a misunderstanding as the patient's family members quickly rescinded this and she has now a DO NOT RESUSCITATE but with request for medical interventions. The patient is nonambulatory at baseline; was bedbound for approximately 3 to 4 weeks prior to arrival. Patient was seen on morning rounds. She was found sitting upright in bed, comfortably on room air. She is awake and alert; oriented to self only, conversational and socially appropriate. She tells me that she is not feeling well today, but then denies all symptoms when prompted. At the end of our conversation, she states "I must just be tired." She denies fever, chills, chest pain, difficulty breathing, abdominal pain, nausea, vomiting, diarrhea, and buttocks pain. She has no questions or concerns at this time. No family members were present during the time of her assessment. No concerns per nursing.. Reason For Visit: INFECTED SACRAL DECUBITUS ULCER Physical Exam Vital Signs: Temp Pulse Resp BP Pulse Ox 98.3 F 76 15 100/40 L 100 04/09/19 02:57 04/09/19 07:00 04/09/19 02:57 04/09/19 02:57 04/09/19 02:57 Intake & Output 04/08/19 04/09/19 04/10/19 06:59 06:59 06:59 Intake Total 2630 3336 Output Total 1950 2175 Balance 680 1161 Weight 83.8 kg 81 kg General appearance: PRESENT: no acute distress, cooperative, obese, well- developed, well-nourished Head exam: PRESENT: atraumatic, normocephalic Eye exam: PRESENT: conjunctiva pink, EOMI, PERRLA. ABSENT: scleral icterus Ear exam: PRESENT: normal external ear exam Mouth exam: PRESENT: moist, tongue midline Neck exam: ABSENT: carotid bruit, JVD, lymphadenopathy, thyromegaly Respiratory exam: PRESENT: clear to auscultation teri, decreased breath sounds - bibasilar secondary to poor respiratory effort, body habitus, symmetrical, unlabored. ABSENT: rales, rhonchi, wheezes Cardiovascular exam: PRESENT: RRR, +S1, +S2. ABSENT: diastolic murmur, rubs, systolic murmur Pulses: PRESENT: normal dorsalis pedis pul Vascular exam: PRESENT: normal capillary refill GI/Abdominal exam: PRESENT: normal bowel sounds, soft. ABSENT: distended, guarding, mass, organolmegaly, rebound, tenderness Rectal exam: PRESENT: deferred Extremities exam: PRESENT: full ROM. ABSENT: calf tenderness, clubbing, pedal edema Neurological exam: PRESENT: alert, awake, oriented to person, CN II-XII grossly intact, other - Conversational and socially appropriate. ABSENT: oriented to place, oriented to time, oriented to situation, motor sensory deficit Psychiatric exam: PRESENT: appropriate affect, normal mood. ABSENT: homicidal ideation, suicidal ideation Skin exam: PRESENT: dry, warm. ABSENT: cyanosis, intact - Wound VAC to sacral decubitus wound, rash Results Laboratory Results: 04/09/19 08:27 04/09/19 08:27 04/09/19 04/09/19 08:27 08:27 WBC 15.6 H RBC 4.01 Hgb 9.3 L Hct 29.5 L MCV 74 L MCH 23.1 L MCHC 31.4 L RDW 18.3 H Plt Count 507 H Seg Neutrophils % 72.0 Sodium 135.8 L Potassium 4.2 Chloride 104 Carbon Dioxide 24 Anion Gap 8 BUN 11 Creatinine 0.62 Est GFR ( Amer) > 60 Glucose 112 H Calcium 9.2 03/23/19 03/23/19 03/25/19 10:35 10:35 06:43 Creatine Kinase 160 H 177 H CK-MB (CK-2) 0.77 Troponin I 0.016 03/25/19 06:43 Creatine Kinase CK-MB (CK-2) 0.65 Troponin I 0.029 Impressions: Femur X-Ray 03/23/19 10:12 IMPRESSION: NO RADIOGRAPHIC EVIDENCE OF ACUTE INJURY. Hip/Pelvis X-Ray 03/23/19 10:12 IMPRESSION: No fracture. Chest X-Ray 03/23/19 10:13 IMPRESSION: CARDIAC ENLARGEMENT WITHOUT FAILURE. Lumbar Spine X-Ray 03/23/19 10:13 IMPRESSION: SPONDYLOSIS WITHOUT BONE LESION OR FRACTURE. Breast Ultrasound 04/01/19 00:00 IMPRESSION: Possible hematoma given reported history of falling and decrease in size of palpable abnormality. However correlation mammography is recommended. Assessment and Plan - Diagnosis (1) Stage IV pressure ulcer of sacral region Is this a current diagnosis for this admission?: Yes Plan: Now status post surgical debridement; wound VAC in place. Repeat blood cultures (03/27/2019) have no growth at 5 days. Wound culture demonstrated enterococcus faecalis, Serratia Chely cans, and Pseudomonas. Spoke with surgery today; wound VAC was removed last night. Wound appeared clean with granulation tissue and no evidence of active infection. Per surgery, patient is cleared for discharge. Infectious disease was consulted; have recommended extended infusion Zosyn every 8 hours for an additional 10 days for a total of 4 weeks of IV antibiotic therapy. We will have PICC placed. IV meropenem is discontinued and Zosyn ordered as recommended by infectious disease. Continue wound VAC per surgery's recommendations. (2) Bacteremia due to Pseudomonas Is this a current diagnosis for this admission?: Yes Plan: Resolved. The patient had multiple blood cultures positive for pseudomonas aeruginosa. This was also isolated in the decubitus ulcer and therefore likely was the point of origin. Repeat blood cultures negative. Patient received 4 days IV Levaquin. Then started on IV Unasyn and Diflucan; following surgical intervention, Unasyn was discontinued and patient was started on meropenem. Infectious disease was consulted; fortunately, patient has received an adequate length of therapy for treatment of her bacteremia. She will continue on IV Zosyn for an additional 10 days for treatment of her sacral decubitus wound. (3) Coronary artery disease Qualifiers: Coronary Disease-Associated Artery/Lesion type: [place] artery Is this a current diagnosis for this admission?: Yes Plan: No complaints of chest pain. Continue aspirin and statin therapy. (4) Hypertension Qualifiers: Hypertension type: essential hypertension Qualified Code(s): I10 - Essen tial (primary) hypertension Is this a current diagnosis for this admission?: Yes Plan: The patient's antihypertensive medications were discontinued when she was made comfort care; it does not appear that these were resumed when comfort care me asures were discontinued. However, the patient does continue to remain normotensive. We will continue to monitor blood pressures and heart rate by telemetry to ascertain whether or not she would benefit from resumption of her carvedilol, Valsartan, and or furosemide. (5) Leukocytosis Qualifiers: Leukocytosis type: other Qualified Code(s): D72.828 - Other elevated white blood cell count Is this a current diagnosis for this admission?: Yes Plan: Overall unchanged; 9.9-> 10.9->12.4-> 11.2-> 12.9-> 12.2-> 15 Patient remains afebrile. Secondary to stage IV decubitus ulcer and Pseudomonas bacteremia. Infectious disease was consulted; please see Dr. Burleson's note. She advises against using leukocytosis as an endpoint for determining length of therapy for antibiotics. Patient will continue on IV Zosyn for an additional 10 days. Cultures and antibiotics as above. (6) Type 2 diabetes mellitus Qualifiers: Diabetes mellitus supervisor intermediates insulin use: without chcf use Is this a current diagnosis for this admission?: Yes Plan: A1c 6.9%. Consistent carb diet. Accu-Cheks before meals and at bedtime with sliding scale insulin. Metformin 1000 mg twice daily with meals. Hypoglycemia protocol in place. (7) A-fib Qualifiers: Atrial fibrillation type: chronic Qualified Code(s): I48.2 - Chronic atrial fibrillation Is this a current diagnosis for this admission?: Yes Plan: Patient no longer comfort care measures only. Resume home dose amiodarone. Not a candidate for chronic anticoagulation at this time. (8) Breast mass, left Is this a current diagnosis for this admission?: No Plan: Asymptomatic, Patient states mass present since January 2019 and was told evaluation suggested calcified hematoma. Appears to be a hematoma by ultrasound. Patient will have a mammogram scheduled as an outpatient - Time Time Spent with patient: 25-34 minutes Medications reviewed and adjusted accordingly: Yes Anticipated discharge: SNF Within: within 24 hours
[2019-04-09] MEDS: ATORVASTATIN CALCIUM 20 MG TABLET PO SCH (21:28)
[2019-04-09] MEDS: MIRTAZAPINE 15 MG TABLET PO SCH (21:28)
[2019-04-09] MEDS: PIPERACILLIN SODIUM/TAZOBACTAM 3.375 GM in NORMAL SALINE 100 ML IV SCH (22:03)
[2019-04-09] MEDS: OXYCODONE-ACETAMINOPHEN 5-325 MG TABLET PO PRN (22:26)
[2019-04-10 05:39] LABS: HEMATOCRIT 24.5 % (36.0-47.0); MEAN CORPUSCULAR HEMOGLOBIN 23.5 pg (27.0-33.4); MEAN CORPUSCULAR HGB CONC 32.7 g/dL (32.0-36.0); MEAN CORPUSCULAR VOLUME 72 fl (80-97); PLATELET COUNT 414 10^3/uL (150-450); RED BLOOD COUNT 3.41 10^6/uL (3.72-5.28); WHITE BLOOD COUNT 20.7 10^3/uL (4.0-10.5)
[2019-04-10 06:05] LABS: ABSOLUTE LYMPHOCYTES# (MANUAL) 4.1 10^3/uL (0.5-4.7); ABSOLUTE MONOCYTES # (MANUAL) 2.3 10^3/uL (0.1-1.4); BAND NEUTROPHILS % (MANUAL) 1 % (3-5); BASOPHILS % (MANUAL) 0 % (0-2); EOSINOPHILS % (MANUAL) 1 % (0-6); LYMPHOCYTES % (MANUAL) 20 % (13-45); MONOCYTES % (MANUAL) 11 % (3-13); SEGMENTED NEUTROPHILS % (MAN) 67 % (42-78); TOTAL CELLS COUNTED 100
[2019-04-10 06:06] LABS: ANISOCYTOSIS 2+; OVALOCYTES SLIGHT; PLATELET COMMENT ADEQUATE; POIKILOCYTOSIS SLIGHT; SCHISTOCYTES SLIGHT
[2019-04-10] MEDS: PIPERACILLIN SODIUM/TAZOBACTAM 3.375 GM in NORMAL SALINE 100 ML IV SCH ×3 (06:08→21:29)
[2019-04-10] MEDS: NORMAL SALINE 1000 ML 1,000 ML IV PRN (06:09)
[2019-04-10] MEDS: INSULIN LISPRO 100 UNIT/ML 3 ML VIAL SUBCUT SCH ×4 (08:54→21:28)
[2019-04-10] MEDS ORDERED: FENTANYL 50 MCG/HR PATCH.TD72 TD SCH (10:15)
[2019-04-10] MEDS: AMIODARONE HCL 200 MG TABLET PO SCH (11:00)
[2019-04-10] MEDS: CHOLECALCIFEROL (D3) 1,000 UNIT (25 MCG) TABLET PO SCH (11:09)
[2019-04-10] MEDS: MEGESTROL ACETATE SUSP 400 MG/10 ML UDCUP PO SCH (11:09)
[2019-04-10] MEDS: METFORMIN HCL 500 MG TABLET PO SCH ×2 (11:10→19:02)
[2019-04-10] MEDS: ASPIRIN 81 MG TABLET, CHEWABLE PO SCH (13:47)
[2019-04-10] MEDS: NYSTATIN CREAM 15 GM TP SCH ×2 (13:47→19:03)
[2019-04-10] MEDS: MULTIVITAMIN TABLET PO SCH (13:53)
--- NOTE | 2019-04-10 16:38 | RADIOLOGY REPORT (SQ) ---
EXAM DESCRIPTION: CHEST SINGLE VIEW COMPLETED DATE/TIME: 04/10/2019 4:23 pm REASON FOR STUDY: chest pain COMPARISON: 03/23/2019 EXAM PARAMETERS: NUMBER OF VIEWS: One view. TECHNIQUE: Single frontal radiographic view of the chest acquired. RADIATION DOSE: NA LIMITATIONS: None. FINDINGS: LUNGS AND PLEURA: No opacities, masses or pneumothorax. No pleural effusion. MEDIASTINUM AND HILAR STRUCTURES: No masses. Contour normal. HEART AND VASCULAR STRUCTURES: Stable mild cardiomegaly. BONES: No acute findings. Degenerative changes in the spine. HARDWARE: PICC line. OTHER: No other significant finding. IMPRESSION: STABLE CARDIOMEGALY. NO APPARENT ACUTE FINDINGS. TECHNICAL DOCUMENTATION: JOB ID: [id number] [employer]- All Rights Reserved Reading location - IP/workstation name: [email or web address]
--- NOTE | 2019-04-10 16:42 | RADIOLOGY REPORT (SQ) ---
EXAM DESCRIPTION: PICC INSERTION; U/S GUIDE FOR VASCULAR ACCESS COMPLETED DATE/TIME: 04/10/2019 4:23 pm; 04/10/2019 4:24 pm REASON FOR STUDY: nursing home antibiotics.; CHEST PAIN COMPARISON: Two-view chest 03/23/2019 FLUOROSCOPY TIME: Performed bedside, no fluoroscopy AP chest and right arm ultrasound images saved to PACS. TECHNIQUE: Fluoroscopic and ultrasound guided PICC placement. LIMITATIONS: None. PROCEDURE: After written consent and assessment were obtained, the patient was brought into the [facility] room in her hospital bed, recent debridement for sacral decubitus ulcers, patient requested not to be moved out of bed. Ultrasound evaluation of potential access sites were performed. After succe ssfully identifying a patent right basilic vein, the right arm was prepped and draped in a sterile fa shion along with the ultrasound probe. The entry site was anesthetized with 1% lidocaine. A 21 gauge 7 cm needle was advanced through the skin and into the basilic vein under live ultrasound guidance. An ultrasound image was saved to PACS confirming access site. A .018 guide wire was then inserted th rough the needle and into the venous system. The needle was then removed and an 11 blade scalpel was used to make a 1cm skin incision. A 5 fr peel-away sheath was advanced over the wire and into the ve nous system. A measurement was then made using the existing wire and intra procedural chest film. The wire was then removed and trimmed. The PICC was advanced through the peel-away sheath and into the v enous system. The peel-away sheath was removed and the catheter was adhered to the patients arm with a stat lock. The catheter was then aspirated and flushed and a sterile bandage was placed over the ac cess site. A chest film dictated separately was saved to PACS confirming the catheter tip within the superior vena cava. IMPRESSION: SUCCESSFUL PLACEMENT OF A 5 FR DUAL LUMEN 33 CM PICC IN THE RIGHT BASILIC VEIN. COMMENT: Patient medication list reviewed: Yes- Quality ID# [id number]:Eligible professional attests to doc umenting in the medical record they obtained, updated, or reviewed the patient's current medications. . Quality ID 145: Final reports for procedures using fluoroscopy that document radiation exposure jenny moises, or exposure time and number of fluorographic images (if radiation exposure indices are not avail able) Quality ID #76: The patient was prepped and draped using maximum sterile barrier technique including cap, mask, sterile gown, sterile gloves, a large sterile sheet, hand hygiene, and 2% Chlorhexidine fo r cutaneous antisepsis. When ultrasound is used, sterile ultrasound techniques are followed requiring sterile gel and sterile probes. TECHNICAL DOCUMENTATION: JOB ID: [id number] [employer]- All Rights Reserved rev-12/14 Reading location - IP/workstation name: [email or web address]
--- NOTE | 2019-04-10 16:42 | RADIOLOGY REPORT (SQ) ---
EXAM DESCRIPTION: PICC INSERTION; U/S GUIDE FOR VASCULAR ACCESS COMPLETED DATE/TIME: 04/10/2019 4:23 pm; 04/10/2019 4:24 pm REASON FOR STUDY: intermediate antibiotics.; CHEST PAIN COMPARISON: Two-view chest 03/23/2019 FLUOROSCOPY TIME: Performed bedside, no fluoroscopy AP chest and right arm ultrasound images saved to PACS. TECHNIQUE: Fluoroscopic and ultrasound guided PICC placement. LIMITATIONS: None. PROCEDURE: After written consent and assessment were obtained, the patient was brought into the [facility] room in her hospital bed, recent debridement for sacral decubitus ulcers, patient requested not to be moved out of bed. Ultrasound evaluation of potential access sites were performed. After succe ssfully identifying a patent right basilic vein, the right arm was prepped and draped in a sterile fa shion along with the ultrasound probe. The entry site was anesthetized with 1% lidocaine. A 21 gauge 7 cm needle was advanced through the skin and into the basilic vein under live ultrasound guidance. An ultrasound image was saved to PACS confirming access site. A .018 guide wire was then inserted th rough the needle and into the venous system. The needle was then removed and an 11 blade scalpel was used to make a 1cm skin incision. A 5 fr peel-away sheath was advanced over the wire and into the ve nous system. A measurement was then made using the existing wire and intra procedural chest film. The wire was then removed and trimmed. The PICC was advanced through the peel-away sheath and into the v enous system. The peel-away sheath was removed and the catheter was adhered to the patients arm with a stat lock. The catheter was then aspirated and flushed and a sterile bandage was placed over the ac cess site. A chest film dictated separately was saved to PACS confirming the catheter tip within the superior vena cava. IMPRESSION: SUCCESSFUL PLACEMENT OF A 5 FR DUAL LUMEN 33 CM PICC IN THE RIGHT BASILIC VEIN. COMMENT: Patient medication list reviewed: Yes- Quality ID# 130:Eligible professional attests to doc umenting in the medical record they obtained, updated, or reviewed the patient's current medications. . Quality ID 145: Final reports for procedures using fluoroscopy that document radiation exposure jenny moises, or exposure time and number of fluorographic images (if radiation exposure indices are not avail able) Quality ID #76: The patient was prepped and draped using maximum sterile barrier technique including cap, mask, sterile gown, sterile gloves, a large sterile sheet, hand hygiene, and 2% Chlorhexidine fo r cutaneous antisepsis. When ultrasound is used, sterile ultrasound techniques are followed requiring sterile gel and sterile probes. TECHNICAL DOCUMENTATION: JOB ID: [id number] [employer]- All Rights Reserved rev-12/14 Reading location - IP/workstation name: [email or web address]
--- NOTE | 2019-04-10 18:07 | PDOC PROGRESS REPORT ---
Subjective Progress Note for:: 04/10/19 Subjective:: The patient was admitted 03/23/2019 for back and leg pain, found to have an infected sacral decubitus ulcer, now status post surgical debridement. Patient did grow Pseudomonas in her blood cultures, repeat blood cultures now clear. Patient was briefly made comfort care measures only, however, this may have been due to a misunderstanding as the patient's family members quickly rescinded this and she has now a DO NOT RESUSCITATE but with request for medical interventions. The patient is nonambulatory at baseline; was bedbound for approximately 3 to 4 weeks prior to arrival. Patient was seen on morning rounds. She was found sitting upright in bed, comfortably on room air. She is awake and alert; oriented to self only. When asked how she is feeling, she says not well. She tells me that she has left- sided chest pain when breathing. I asked her if she has pain when she coughs, to which she reports that she does not have pain at all and is feeling well to day. She further denies fever, chills, chest pain, difficulty breathing, abdominal pain, nausea, vomiting, diarrhea, and buttocks pain. She has no questions or concerns at this time. No family members were present during the time of her assessment. No concerns per nursing. Reason For Visit: INFECTED SACRAL DECUBITUS ULCER Physical Exam Vital Signs: Temp Pulse Resp BP Pulse Ox 98.1 F 78 16 120/32 L 99 04/10/19 16:00 04/10/19 16:00 04/10/19 16:00 04/10/19 16:00 04/10/19 16:00 Intake & Output 04/09/19 04/10/19 04/11/19 06:59 06:59 06:59 Intake Total 3336 1340 600 Output Total 2175 1400 400 Balance 1161 -60 200 Weight 81 kg 83.9 kg General appearance: PRESENT: no acute distress, obese, well-developed, well- nourished Head exam: PRESENT: atraumatic, normocephalic Eye exam: PRESENT: conjunctiva pink, EOMI, PERRLA. ABSENT: scleral icterus Ear exam: PRESENT: normal external ear exam Mouth exam: PRESENT: moist, tongue midline Neck exam: ABSENT: carotid bruit, JVD, lymphadenopathy, thyromegaly Respiratory exam: PRESENT: clear to auscultation teri, decreased breath sounds, symmetrical, unlabored. ABSENT: chest wall tenderness - none on palpation, rales, rhonchi, wheezes Cardiovascular exam: PRESENT: RRR, +S1, +S2. ABSENT: diastolic murmur, rubs, systolic murmur Pulses: PRESENT: normal dorsalis pedis pul Vascular exam: PRESENT: normal capillary refill GI/Abdominal exam: PRESENT: normal bowel sounds, soft. ABSENT: distended, guarding, mass, organolmegaly, rebound, tenderness Rectal exam: PRESENT: deferred Extremities exam: PRESENT: full ROM. ABSENT: calf tenderness, clubbing, pedal edema Neurological exam: PRESENT: alert, awake, oriented to person, CN II-XII grossly intact, other - Pleasantly confused. ABSENT: oriented to place, oriented to time, oriented to situation, motor sensory deficit Psychiatric exam: PRESENT: appropriate affect, normal mood. ABSENT: homicidal ideation, suicidal ideation Skin exam: PRESENT: dry, pallor, warm. ABSENT: cyanosis, intact - Wound VAC to sacral decubitus ulcer, rash Results Laboratory Results: 04/10/19 05:27 04/09/19 08:27 04/10/19 05:27 WBC 20.7 H RBC 3.41 L Hgb 8.0 L Hct 24.5 L MCV 72 L MCH 23.5 L MCHC 32.7 RDW 18.0 H Plt Count 414 Seg Neutrophils % Not Reportable 03/23/19 03/23/19 03/25/19 10:35 10:35 06:43 Creatine Kinase 160 H 177 H CK-MB (CK-2) 0.77 Troponin I 0.016 03/25/19 06:43 Creatine Kinase CK-MB (CK-2) 0.65 Troponin I 0.029 Impressions: Femur X-Ray 03/23/19 10:12 IMPRESSION: NO RADIOGRAPHIC EVIDENCE OF ACUTE INJURY. Hip/Pelvis X-Ray 03/23/19 10:12 IMPRESSION: No fracture. Lumbar Spine X-Ray 03/23/19 10:13 IMPRESSION: SPONDYLOSIS WITHOUT BONE LESION OR FRACTURE. Breast Ultrasound 04/01/19 00:00 IMPRESSION: Possible hematoma given reported history of falling and decrease in size of palpable abnormality. However correlation mammography is recommended. Chest X-Ray 04/10/19 00:00 IMPRESSION: STABLE CARDIOMEGALY. NO APPARENT ACUTE FINDINGS. Interventional Vascular Procedure 04/10/19 00:00 IMPRESSION: SUCCESSFUL PLACEMENT OF A 5 FR DUAL LUMEN 33 CM PICC IN THE RIGHT BASILIC VEIN. PICC Line Insertion 04/10/19 00:00 IMPRESSION: SUCCESSFUL PLACEMENT OF A 5 FR DUAL LUMEN 33 CM PICC IN THE RIGHT BASILIC VEIN. Assessment and Plan - Diagnosis (1) Stage IV pressure ulcer of sacral region Is this a current diagnosis for this admission?: Yes - Wound VAC to sacral decubitus ulcer Plan: Now status post surgical debridement; wound VAC in place. Repeat blood cultures (03/27/2019) have no growth at 5 days. Wound culture demonstrated enterococcus faecalis, Serratia Chely cans, and Pseudomonas. Spoke with surgery; wound appears clean with granulation tissue and no evidence of active infection. Per surgery, patient is cleared for discharge. Infectious disease was consulted; have recommended extended infusion Zosyn every 8 hours for an additional 10 days for a total of 4 weeks of IV antibiotic the rapy. Now has PICC line for long-term antibiotics IV meropenem is discontinued and Zosyn ordered as recommended by infectious disease. Continue wound VAC per surgery's recommendations. (2) Bacteremia due to Pseudomonas Is this a current diagnosis for this admission?: Yes Plan: Resolved. The patient had multiple blood cultures positive for pseudomonas aeruginosa. This was also isolated in the decubitus ulcer and therefore likely was the point of origin. Repeat blood cultures negative. Patient received 4 days IV Levaquin. Then started on IV Unasyn and Diflucan; following surgical intervention, Unasyn was discontinued and patient was started on meropenem. Infectious disease was consulted; fortunately, patient has received an adequate length of therapy for treatment of her bacteremia. She will continue on IV Zosyn for an additional 10 days for treatment of her sacral decubitus wound. (3) Coronary artery disease Qualifiers: Coronary Disease-Associated Artery/Lesion type: [place] artery Is this a current diagnosis for this admission?: Yes Plan: No complaints of chest pain. Continue aspirin and statin therapy. (4) Hypertension Qualifiers: Hypertension type: essential hypertension Qualified Code(s): I10 - Essential (primary) hypertension Is this a current diagnosis for this admission?: Yes Plan: The patient's antihypertensive medications were discontinued when she was made comfort care; it does not appear that these were resumed when comfort care measures were discontinued. However, the patient does continue to remain normotensive. We will continue to monitor blood pressures and heart rate by telemetry to ascertain whether or not she would benefit from resumption of her carvedilol, Valsartan, and or furosemide. (5) Leukocytosis Qualifiers: Leukocytosis type: other Qualified Code(s): D72.828 - Other elevated white blood cell count Is this a current diagnosis for this admission?: Yes Plan: Overall unchanged; 9.9-> 10.9->12.4-> 11.2-> 12.9-> 12.2-> 15-> 20 Patient remains afebrile. Secondary to stage IV decubitus ulcer and Pseudomonas bacteremia. Follow-up chest x-ray today is benign; no active cardiopulmonary disease. Urinalysis pending, although I would be quite surprised if she had developed a UTI while on meropenem. Leukocytosis is likely secondary to her sacral decubitus ulcer, Pseudomonas bacteremia, and perhaps antibiotic reaction. Infectious disease was consulted; please see Dr. Burleson's note. She advises against using leukocytosis as an endpoint for determining length of therapy for antibiotics. Patient will continue on IV Zosyn for an additional 10 days. Cultures and antibiotics as above. (6) Type 2 diabetes mellitus Qualifiers: Diabetes mellitus energy sales consultant insulin use: without energy sales consultant use Is this a current diagnosis for this admission?: Yes Plan: A1c 6.9%. Consistent carb diet. Accu-Cheks before meals and at bedtime with sliding scale insulin. Metformin 1000 mg twice daily with meals. Hypoglycemia protocol in place. (7) A-fib Qualifiers: Atrial fibrillation type: chronic Qualified Code(s): I48.2 - Chronic atrial fibrillation Is this a current diagnosis for this admission?: Yes Plan: Patient no longer comfort care measures only. Continue home dose amiodarone. Not a candidate for chronic anticoagulation at this time. (8) Breast mass, left Is this a current diagnosis for this admission?: No Plan: Asymptomatic, Patient states mass present since January 2019 and was told evaluation suggested calcified hematoma. Appears to be a hematoma by ultrasound. Patient will have a mammogram scheduled as an outpatient - Time Time Spent with patient: 25-34 minutes Medications reviewed and adjusted accordingly: Yes Anticipated discharge: SNF Within: within 24 hours
[2019-04-10] MEDS: OXYCODONE-ACETAMINOPHEN 5-325 MG TABLET PO PRN (21:28)
[2019-04-10] MEDS: ATORVASTATIN CALCIUM 20 MG TABLET PO SCH (21:28)
[2019-04-10] MEDS: MIRTAZAPINE 15 MG TABLET PO SCH (21:28)
[2019-04-11] MEDS: NORMAL SALINE 1000 ML 1,000 ML IV PRN (02:17)
[2019-04-11] MEDS: PIPERACILLIN SODIUM/TAZOBACTAM 3.375 GM in NORMAL SALINE 100 ML IV SCH ×2 (05:00→13:22)
[2019-04-11] MEDS: INSULIN LISPRO 100 UNIT/ML 3 ML VIAL SUBCUT SCH ×2 (08:17→12:00)
--- NOTE | 2019-04-11 08:36 | RADIOLOGY REPORT (SQ) ---
EXAM DESCRIPTION: CHEST SINGLE VIEW COMPLETED DATE/TIME: 04/11/2019 8:25 am REASON FOR STUDY: AMS, lethargy, leukocytosis COMPARISON: AP view of the chest from 04/10/2019. EXAM PARAMETERS: NUMBER OF VIEWS: One view. TECHNIQUE: Single frontal radiographic view of the chest acquired. RADIATION DOSE: NA LIMITATIONS: None. FINDINGS: The right upper extremity PICC is no longer in place. The cardiac silhouette is enlarged but stable. The pulmonary vasculature and mediastinal contours are unchanged. There is no consolida tion, sizeable pleural effusion or pneumothorax. IMPRESSION: Status post removal of the right upper extremity PICC. Otherwise unchanged radiographic appearance of the chest. TECHNICAL DOCUMENTATION: JOB ID: [id number] [employer]- All Rights Reserved Reading location - IP/workstation name: [email or web address]
[2019-04-11] MEDS: METFORMIN HCL 500 MG TABLET PO SCH (09:00)
[2019-04-11] MEDS: ASPIRIN 81 MG TABLET, CHEWABLE PO SCH (09:19)
[2019-04-11] MEDS: CHOLECALCIFEROL (D3) 1,000 UNIT (25 MCG) TABLET PO SCH (09:19)
[2019-04-11] MEDS: AMIODARONE HCL 200 MG TABLET PO SCH (09:19)
[2019-04-11] MEDS: MULTIVITAMIN TABLET PO SCH (09:20)
[2019-04-11] MEDS: OXYCODONE-ACETAMINOPHEN 5-325 MG TABLET PO PRN ×2 (09:20→16:03)
[2019-04-11] MEDS: MEGESTROL ACETATE SUSP 400 MG/10 ML UDCUP PO SCH (11:00)
[2019-04-11] MEDS: NYSTATIN CREAM 15 GM TP SCH (11:12)
--- NOTE | 2019-04-11 12:21 | PDOC TRANSFER SUMMARY ---
General - Admit/Disc Date/PCP Admission Date/Primary Care Provider: 03/23/19 15:18 Discharge Date: 04/11/19 - Discharge Diagnosis (1) Stage IV pressure ulcer of sacral region Is this a current diagnosis for this admission?: Yes - Wound VAC to sacral decubitus ulcer Summary: Now status post surgical debridement; wound VAC in place. Repeat blood cultures (03/27/2019) have no growth at 5 days. Wound culture demonstrated enterococcus faecalis, Serratia Chely cans, and Pseudomonas. Spoke with surgery; wound appears clean with granulation tissue and no evidence of active infection. Per surgery, patient is cleared for discharge. Infectious disease was consulted; have recommended extended infusion Zosyn every 8 hours for a total of 4 weeks of IV antibiotic therapy; last day 04/20/2019. Continue wet-to-dry dressing until wound VAC can be placed. Continue wound VAC dressing changes every 3 days. Follow-up with [facility] in 2 weeks. (2) Bacteremia due to Pseudomonas Is this a current diagnosis for this admission?: Yes Summary: Resolved. The patient had multiple blood cultures positive for pseudomonas aeruginosa. This was also isolated in the decubitus ulcer and therefore likely was the point of origin. Repeat blood cultures negative. Patient received 4 days IV Levaquin. Then started on IV Unasyn and Diflucan; following surgical intervention, Unasyn was discontinued and patient was started on meropenem. Infectious disease was consulted; fortunately, patient has received an adequate length of therapy for treatment of her bacteremia. She will continue on IV Zosyn for treatment of her sacral decubitus wound. (3) Coronary artery disease Is this a current diagnosis for this admission?: Yes Summary: No complaints of chest pain. Continue aspirin and statin therapy. (4) Hypertension Is this a current diagnosis for this admission?: Yes Summary: Presently normotensive. The patient's antihypertensive medications were discontinued when she was made comfort care; it does not appear that these were resumed when comfort care measures were discontinued. However, the patient does continue to remain normotensive. Recommend daily monitoring of blood pressure to determine need for future antihypertensive therapy. Continue on cardiac diet. (5) Leukocytosis Is this a current diagnosis for this admission?: Yes Summary: Secondary to stage IV decubitus ulcer and Pseudomonas bacteremia. Possibly secondary to IV antibiotic therapy. Patient remains afebrile and clinically improved. Follow-up chest x-ray today is benign; no active cardiopulmonary disease. Infectious disease was consulted. Dr. Burleson advises against using leukocytosis as an endpoint for determining length of therapy for antibiotics. Patient will continue on IV Zosyn 3.375 g extended infusion via IV every 8 hours through 04/20/2019 Cultures and antibiotics as above. (6) Type 2 diabetes mellitus Is this a current diagnosis for this admission?: Yes Summary: A1c 6.9%. Consistent carb diet. Recommend continued home dose metformin and Januvia. (7) A-fib Is this a current diagnosis for this admission?: Yes Summary: Patient no longer comfort care measures only. Continue home dose amiodarone, aspirin and Plavix therapy. Not a candidate for chronic anticoagulation at this time due to patient frailty, and risk for falls/bleeding (8) Breast mass, left Is this a current diagnosis for this admission?: No Summary: Asymptomatic, Patient states mass present since January 2019 and was told evaluation suggested calcified hematoma. Appears to be a hematoma by ultrasound. Recommend routine outpatient monitoring. - Additional Information Resuscitation Status: Full Code Discharge Diet: Diabetic Discharge Activity: Activity As Tolerated Prescriptions: Fentanyl [Duragesic 50 Mcg/Hr Transdermal Patch] 1 each TD Q3DAYS #3 patch.td72 Atorvastatin Calcium [Lipitor 20 mg Tablet] 20 mg PO QHS #30 tablet Nystatin [Mycostatin Cream 15 gm] 1 applic TP BID #1 tube Oxycodone HCl/Acetaminophen [Percocet 5-325 mg Tablet] 1 tab PO Q6HP PRN #20 tablet PRN Reason: Mirtazapine [Remeron 15 mg Tablet] 7.5 mg PO QHS #30 tablet Piperacillin Sodium/Tazobactam [Zosyn 3.375 Gram Vial] 3.375 gm IV Q8 9 Days vial Home Medications: Amiodarone HCl [Cordarone 200 mg Tablet] 200 mg PO DAILY 03/23/19 Aspirin [Ecotrin 81 mg EC Tablet] 81 mg PO DAILY 03/23/19 Cholecalciferol (Vitamin D3) [Vitamin D3 1000 Unit Tablet] 2,000 unit PO DAILY 03/23/19 Clopidogrel Bisulfate [Plavix 75 mg Tablet] 75 mg PO DAILY 03/23/19 Cyanocobalamin (Vitamin B-12) [Vitamin B12] 5,000 mcg PO DAILY 03/23/19 Metformin HCl [Glucophage 500 mg Tablet] 1,000 mg PO BIDACBS 03/23/19 Sitagliptin Phosphate [Januvia 50 mg Tablet] 100 mg PO DAILY 03/23/19 Ssd2/Hydrocortison2/Zincox2/Lido5%1 1 applic TOP ASDIR PRN 03/23/19 Acetaminophen [Tylenol 325 mg Tablet] 650 mg PO Q6HP PRN tablet 04/11/19 Atorvastatin Calcium [Lipitor 20 mg Tablet] 20 mg PO QHS #30 tablet 04/11/19 Fentanyl [Duragesic 50 Mcg/Hr Transdermal Patch] 1 each TD Q3DAYS #3 patch.td72 04/11/19 Mirtazapine [Remeron 15 mg Tablet] 7.5 mg PO QHS #30 tablet 04/11/19 Multivitamin [Tab-A-Shahab (Multiple Vitamin) Tablet] 1 tab PO DAILY tablet 04/11/19 Nystatin [Mycostatin Cream 15 gm] 1 applic TP BID #1 tube 04/11/19 Oxycodone HCl/Acetaminophen [Percocet 5-325 mg Tablet] 1 tab PO Q6HP PRN #20 tablet 04/11/19 Piperacillin Sodium/Tazobactam [Zosyn 3.375 Gram Vial] 3.375 gm IV Q8 9 Days vial 04/11/19 Piperacillin Sodium/Tazobactam [Zosyn Inj 3.375 gm Vial] 3.375 gm IV Q8 vial 04/11/19 History of Present Illness Admission Date/PCP: 03/23/19 15:18 History of Present Illness: Per H&P by Dr. Leigh: JESSE HURLEY is a 83 year old female patient brought by her daughter with chief complaint of back and lower extremity pain. Since patient is weak and deconditioned the brief history is obtained from her daughter who is in the room during my encounter. Per her daughter patient has been doing well and she does not have significant medical history and she does not take any medication except chronic osteoarthritis up until December 06, 2018 when she had cardiac arrest for which patient was taken to [facility] in [facility]. Patient was successfully resuscitated and she has found to have coronary artery disease which requires 3 stent placement. Reportedly her hospital course is complicated by aspiration pneumonia. After discharge patient went to rehab then to custodial facility. Reportedly is a custodial facility patient developed decubitus ulcer. On examination she has infected sacral and gluteal decubitus ulcer. Her blood work shows market leukocytosis of 20,000. Rate her imaging studies are unremarkable. Physical Exam Vital Signs: Temp Pulse Resp BP Pulse Ox 98.7 F 78 16 126/44 H 98 04/11/19 07:29 04/11/19 07:29 04/11/19 07:29 04/11/19 07:29 04/11/19 07:29 Intake & Output 04/10/19 04/11/19 04/12/19 06:59 06:59 06:59 Intake Total 1340 2400 100 Output Total 1400 2475 Balance -60 -75 100 Weight 83.9 kg 84.6 kg General appearance: PRESENT: no acute distress, obese, well-developed, well- nourished Head exam: PRESENT: atraumatic, normocephalic Eye exam: PRESENT: conjunctiva pink, EOMI, PERRLA. ABSENT: scleral icterus Ear exam: PRESENT: normal external ear exam Mouth exam: PRESENT: moist, tongue midline Neck exam: ABSENT: carotid bruit, JVD, lymphadenopathy, thyromegaly Respiratory exam: PRESENT: clear to auscultation teri, decreased breath sounds - Secondary to body habitus and poor inspiratory effort, symmetrical, unlabored, other - Room air. ABSENT: rales, rhonchi, wheezes Cardiovascular exam: PRESENT: RRR, +S1, +S2. ABSENT: diastolic murmur, rubs, systolic murmur Pulses: PRESENT: normal dorsalis pedis pul Vascular exam: PRESENT: normal capillary refill GI/Abdominal exam: PRESENT: normal bowel sounds, soft. ABSENT: distended, guarding, mass, organolmegaly, rebound, tenderness Rectal exam: PRESENT: deferred Extremities exam: PRESENT: full ROM. ABSENT: calf tenderness, clubbing, pedal edema Neurological exam: PRESENT: alert, awake, oriented to person, CN II-XII grossly intact, other - Pleasantly confused. ABSENT: oriented to place, oriented to time, oriented to situation, motor sensory deficit Psychiatric exam: PRESENT: appropriate affect, normal mood. ABSENT: homicidal ideation, suicidal ideation Skin exam: PRESENT: dry, warm. ABSENT: cyanosis, intact - Sacral decubitus ulcer; wound VAC in place, rash Results Laboratory Results: 04/10/19 05:27 04/09/19 08:27 03/23/19 03/23/19 03/25/19 10:35 10:35 06:43 Creatine Kinase 160 H 177 H CK-MB (CK-2) 0.77 Troponin I 0.016 03/25/19 06:43 Creatine Kinase CK-MB (CK-2) 0.65 Troponin I 0.029 Impressions: Femur X-Ray 03/23/19 10:12 IMPRESSION: NO RADIOGRAPHIC EVIDENCE OF ACUTE INJURY. Hip/Pelvis X-Ray 03/23/19 10:12 IMPRESSION: No fracture. Lumbar Spine X-Ray 03/23/19 10:13 IMPRESSION: SPONDYLOSIS WITHOUT BONE LESION OR FRACTURE. Breast Ultrasound 04/01/19 00:00 IMPRESSION: Possible hematoma given reported history of falling and decrease in size of palpable abnormality. However correlation mammography is recommended. Interventional Vascular Procedure 04/10/19 00:00 IMPRESSION: SUCCESSFUL PLACEMENT OF A 5 FR DUAL LUMEN 33 CM PICC IN THE RIGHT BASILIC VEIN. PICC Line Insertion 04/10/19 00:00 IMPRESSION: SUCCESSFUL PLACEMENT OF A 5 FR DUAL LUMEN 33 CM PICC IN THE RIGHT BASILIC VEIN. Chest X-Ray 04/11/19 07:31 IMPRESSION: Status post removal of the right upper extremity PICC. Otherwise unchanged radiographic appearance of the chest. Transfer Plan - Disposition Transfer Plan: Discharge to SNF for short-term rehab, wound care, continued IV antibiotics - Time Spent with Patient Time spent with patient: Less than 30 Minutes Qualifiers - * PATIENT BEING DISCHARGED WITH ANY OF THE FOLLOWING DIAGNOSIS: No Acute Heart Failure - Is this a Heart Failure Patient?: No Plan Discharge Plan: Discharge to SNF for short-term rehab, wound care, continued IV antibiotics Time Spent: Greater than 30 Minutes
[2019-04-11 13:22] LABS: HEMATOCRIT 25.4 % (36.0-47.0); HEMOGLOBIN 8.1 g/dL (12.0-15.5); MEAN CORPUSCULAR HEMOGLOBIN 23.1 pg (27.0-33.4); MEAN CORPUSCULAR HGB CONC 32.1 g/dL (32.0-36.0); MEAN CORPUSCULAR VOLUME 72 fl (80-97); PLATELET COUNT 475 10^3/uL (150-450); RED BLOOD COUNT 3.53 10^6/uL (3.72-5.28); RED CELL DISTRIBUTION WIDTH 18.4 % (11.5-14.0); WHITE BLOOD COUNT 21.7 10^3/uL (4.0-10.5)
[2019-04-11 14:06] VITALS: BP 105/39
[2019-04-11] MEDS: HYDROMORPHONE HCL INJ/PF 2 MG/ML AMPULE IV PRN (14:30)
== END 2019-04-11 16:08 | DRG 982 ==
LOC: ER 09:47 → EH 15:18 → 3N 18:40 → 3S 04-03 14:00
PROVIDERS: ADMIT Internal Medicine; ATTEND Internal Medicine
PROC: 30233N1 Transfusion of Nonautologous Red Blood Cells into Peripheral Vein, Percutaneous Approach (ICD-10-PCS; 2019-03-25)
PROC: 0QB10ZZ Excision of Sacrum, Open Approach (ICD-10-PCS; principal; 2019-04-04 10:00)
PROC: 02HV33Z Insertion of Infusion Device into Superior Vena Cava, Percutaneous Approach (ICD-10-PCS; 2019-04-10)
DX: L89.154 Pressure ulcer of sacral region, stage 4 (principal); R78.81 Bacteremia; I95.9 Hypotension, unspecified; Z86.74 Personal history of sudden cardiac arrest; I48.2 Chronic atrial fibrillation; G40.909 Epilepsy, unspecified, not intractable, without status epilepticus; B96.5 Pseudomonas (aeruginosa) (mallei) (pseudomallei) as the cause of diseases classified elsewhere; B96.89 Other specified bacterial agents as the cause of diseases classified elsewhere; B95.2 Enterococcus as the cause of diseases classified elsewhere; E11.9 Type 2 diabetes mellitus without complications; I25.10 Atherosclerotic heart disease of native coronary artery without angina pectoris; I10 Essential (primary) hypertension; N63.20 Unspecified lump in the left breast, unspecified quadrant; E66.9 Obesity, unspecified; M54.9 Dorsalgia, unspecified; M16.0 Bilateral primary osteoarthritis of hip; Z66 Do not resuscitate; R25.2 Cramp and spasm; R32 Unspecified urinary incontinence; Z79.02 Long term (current) use of antithrombotics/antiplatelets; Z79.82 Long term (current) use of aspirin; Z79.84 Long term (current) use of oral hypoglycemic drugs; Z95.5 Presence of coronary angioplasty implant and graft; Z74.01 Bed confinement status; I25.2 Old myocardial infarction; Z85.828 Personal history of other malignant neoplasm of skin; Z87.891 Personal history of nicotine dependence; Z91.81 History of falling; Z86.73 Personal history of transient ischemic attack (TIA), and cerebral infarction without residual deficits; Z68.34 Body mass index [BMI] 34.0-34.9, adult
CPT/HCPCS: 00300; 36415; 36430; 36569; 51701; 71045; 71046; 72110; 76642; 76937; 80048; 80053; 81001; 82550; 82553; 82962; 83036; 83605; 83690; 83735; 84484; 85025; 85027; 85610; 85730; 86850; 86900; 86901; 86920; 87040; 87070; 87075; 87077; 87186; 87205; 88304; 93005; 93010; 96374; 96376; 99285; A9270-GY; J0131; J0295; J1170; J1450; J1642; J1650; J1815; J1940; J1956; J2185; J2250; J2270; J2543; J2704; J3010; J3370; J3490; J7030; J7050; P9016

== ENCOUNTER 2019-10-21 14:14 | Emergency (ER) | payer MEDICARE, BC ==
[2019-10-21] MEDS ORDERED: NORMAL SALINE 500 ML IV ONE (14:59)
[2019-10-21] MEDS ORDERED: CEFTRIAXONE INJ 1000 MG VIAL IV ONE (14:59)
[2019-10-21] MEDS ORDERED: ONDANSETRON HCL INJ/PF 4 MG/2 ML SDV IV ONE (15:01)
[2019-10-21] MEDS ORDERED: FENTANYL CITRATE INJ/PF 100 MCG/2 ML AMPUL IV ONE (15:01)
--- NOTE | 2019-10-21 15:09 | ER Document Report ---
ED General - General Chief Complaint: Abdominal Pain Stated Complaint: BURNING/PRESSURE LOWER ABDOMIN/PELVIS Time Seen by Provider: 10/21/19 14:27 Primary Care Provider: FLAKO HCANDRA MD [Primary Care Provider] - Follow up as needed TRAVEL OUTSIDE OF THE [place] 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 She has had some chronic cough. This is nonproductive. She denies nausea, vomiting, fever or chills. Patient says she is diabetic but this is been well controlled with diet only. Prior history is additionally remarkable for CAD with multiple stents placed in the past. Denies known allergies to medications. - Related Data Allergies/Adverse Reactions: orange juice Adverse Reaction (Uncoded 10/21/19 14:33) Past Medical History - General Information source: Patient - Social History Smoking Status: Former Smoker Family History: Reviewed & Not Pertinent Patient has suicidal ideation: No Patient has homicidal ideation: No - Past Medical History Cardiac Medical History: Reports: Hx Congestive Heart Failure, Hx Heart Attack, Hx Hypertension Neurological Medical History: Reports: Hx Cerebrovascular Accident, Hx Seizures Endocrine Medical History: Reports: Hx Diabetes Mellitus Type 2 Renal/ Medical History: Denies: Hx Peritoneal Dialysis Malignancy Medical History: Reports: Hx Skin Cancer Musculoskeletal Medical History: Reports Hx Arthritis Psychiatric Medical History: Denies: Hx Depression Traumatic Medical History: Reports: Hx Fractures - foot Past Surgical History: Reports: Hx Cardiac Catheterization, Hx Coronary Stent Review of Systems - Review of Systems Notes: Constitutional: Negative for fever. HENT: Negative for sore throat. Eyes: Negative for visual changes. Cardiovascular: Negative for chest pain. Respiratory: As per HPI. Gastrointestinal: Negative for vomiting or diarrhea. Genitourinary: As per HPI. Musculoskeletal: Negative for back pain. Skin: Negative for rash. Neurological: Negative for headaches, weakness or numbness. 10 point ROS negative except as marked above and in HPI. Physical Exam - Vital signs Vitals: Temp Pulse Resp BP Pulse Ox 98.0 F 104 H 24 H 137/71 H 100 10/21/19 14:36 10/21/19 14:36 10/21/19 14:36 10/21/19 14:36 10/21/19 14:36 - Notes Notes: GENERAL: Frail elderly female who appears quite uncomfortable. SKIN: Good turgor no rashes. HEAD: Normocephalic atraumatic. EYES: PERRLA. EOMI. Conjunctivae and sclerae clear. EARS: CANALS AND TMS CLEAR. NOSE: CLEAR. MOUTH: Moist mucosa. Good dentition. No stridor or edema. No drooling. NECK: Supple. No masses or thyromegaly. No adenopathy. Carotids 2+ without bruits. No JVD. BACK: Symmetrical without tenderness. CHEST: Respirations unlabored. Few scattered rhonchi bilaterally. HEART: Regular rhythm. No murmur gallop or rub. ABDOMEN: Moderate suprapubic tenderness. Soft without masses, organomegaly or rebound. Bowel sounds normally active. No bruits. GENITALIA: Indwelling Huang catheter which is almost completely occluded with thick sediment. EXTREMITIES: Range of motion of both hips is greatly reduced. No edema. No calf tenderness. Cap refill less than 1.5 seconds. Dorsalis pedis and posterior tibial pulses 2+ and symmetrical. NEUROLOGICAL: GCS 15. Alert and oriented x3. Fluent speech. Cranial nerves II through XII intact. Sensorimotor and cerebellar normal. Normal tone. PSYCHIATRIC: Appropriate affect. Course - Re-evaluation Re-evalutation: 10/21/19 16:50 Huang catheter was changed. Patient was given 1 dose of 25 mcg fentanyl IV along with 4 mg of Zofran IV. Symptoms resolved with this. She was afebrile here. White count was minimally elevated. Patient was hemodynamically stable and did not appear toxic. She was given a dose of Rocephin empirically. Urine has been cultured. This lady is very anxious to be discharged and at this time I think this would be in her best interest. I will place her on some Keflex and Pyridium at home and advised her to return here immediately if she develops vomiting, high fever, shaking chills or overall worsening. - Vital Signs Vital signs: Temp Pulse Resp BP Pulse Ox 98.0 F 104 H 24 H 137/71 H 100 10/21/19 14:36 10/21/19 14:36 10/21/19 14:36 10/21/19 14:36 10/21/19 14:36 - Laboratory Result Diagrams: 10/21/19 15:15 10/21/19 15:15 Laboratory results interpreted by me: 10/21/19 10/21/19 15:15 15:15 WBC 13.9 H RDW 14.9 H Plt Count 630 H Absolute Neuts (auto) 10.0 H Sodium 132.8 L Chloride 92 L Creatinine 0.33 L Glucose 139 H AST 53 H ALT 78 H Alkaline Phosphatase 161 H Total Protein 8.3 H Discharge - Discharge Clinical Impression: Urinary tract infection Qualifiers: Urinary tract infection type: catheter-associated UTI Indwelling urinary catheter type: indwelling urethral catheter Encounter type: initial encounter Qualified Code(s): T83.511A - Infection and inflammatory reaction due to indwelling urethral catheter, initial encounter; N39.0 - Urinary tract infection, site not specified Condition: Stable Disposition: HOME, SELF-CARE Instructions: Cephalexin ([facility]), Urinary Tract Infection ([facility]) Additional Instructions: Increase oral fluids. One of the medications you will receive is going to turn your urine a bright orange color for the next several days. Increase oral fluids. Follow-up with your doctor within the next 3 to 5 days. Return here as needed for new or worsening symptoms: Pain that is worsening or unimproved Uncontrolled vomiting High fever or shaking chills Overall worsening Prescriptions: Cephalexin Monohydrate [Keflex 500 mg Capsule] 500 mg PO Q6H 10 Days #40 capsule Referrals: FLAKO CHANDRA MD [Primary Care Provider] - Follow up as needed
[2019-10-21 15:52] LABS: ABSOLUTE EOSINOPHILS # (AUTO) 0.1 10^3/uL (0.0-0.6); ABSOLUTE MONOCYTES (AUTO) 0.9 10^3/uL (0.1-1.4); BASOPHILS % (AUTO) 0.3 % (0-2); EOSINOPHILS % (AUTO) 0.4 % (0-6); HEMOGLOBIN 12.8 g/dL (12.0-15.5); LYMPHOCYTES % (AUTO) 21.3 % (13-45); MEAN CORPUSCULAR HEMOGLOBIN 27.1 pg (27.0-33.4); MEAN CORPUSCULAR HGB CONC 32.9 g/dL (32.0-36.0); MEAN CORPUSCULAR VOLUME 82 fl (80-97); MONOCYTES % (AUTO) 6.5 % (3-13); PLATELET COUNT 630 10^3/uL (150-450); RED BLOOD COUNT 4.73 10^6/uL (3.72-5.28); RED CELL DISTRIBUTION WIDTH 14.9 % (11.5-14.0); SEGMENTED NEUTROPHILS % (AUTO) 71.5 % (42-78); TOTAL CELLS COUNTED % (AUTO) 100 %; WHITE BLOOD COUNT 13.9 10^3/uL (4.0-10.5)
[2019-10-21 16:09] LABS: ALBUMIN 4.3 g/dL (3.5-5.0); ALKALINE PHOSPHATASE 161 U/L (38-126); ANION GAP 16 (5-19); ASPARTATE AMINO TRANSFERASE 53 U/L (14-36); BILIRUBIN,DIRECT 0.4 mg/dL (0.0-0.4); BILIRUBIN,TOTAL 0.6 mg/dL (0.2-1.3); BLOOD UREA NITROGEN 20 mg/dL (7-20); CARBON DIOXIDE 25 mmol/L (22-30); CHLORIDE 92 mmol/L (98-107); GLUCOSE 139 mg/dL (75-110); POTASSIUM 4.7 mmol/L (3.6-5.0); TOTAL PROTEIN 8.3 g/dL (6.3-8.2)
[2019-10-21 16:54] LABS: APPEARANCE,URINE SLIGHTLY-CLOUDY; BILIRUBIN,URINE NEGATIVE (NEGATIVE); COLOR,URINE YELLOW; GLUCOSE, URINE NEGATIVE (NEGATIVE); KETONES,URINE NEGATIVE (NEGATIVE); PROTEIN,URINE 30 mg/dL (NEGATIVE); URINE SPECIFIC GRAVITY 1.013; UROBILINOGEN,URINE NEGATIVE mg/dL (<2.0)
[2019-10-21 18:51] VITALS: BP 140/70
== END 2019-10-21 18:50 | disposition home or self-care (01) ==
LOC: ER 14:14
DX: T83.511A Infection and inflammatory reaction due to indwelling urethral catheter, initial encounter (principal); N39.0 Urinary tract infection, site not specified; R10.2 Pelvic and perineal pain; R10.9 Unspecified abdominal pain; R10.30 Lower abdominal pain, unspecified; Z87.891 Personal history of nicotine dependence; E11.9 Type 2 diabetes mellitus without complications; I50.9 Heart failure, unspecified; I11.0 Hypertensive heart disease with heart failure; F41.9 Anxiety disorder, unspecified
CPT/HCPCS: 99283; 96361; 96375; 96365; 36415; 87040; 87086; 85025; 87077; 87088; 80053; 81001; 87150 ×26; J3010; J0696; J2405; J7040; 87186